=== PATIENT | male | born 1955 | race Caucasian/White ===

== ENCOUNTER → 2019-09-28 | Outpatient (CLI) | payer BC ==
--- NOTE | 2019-09-28 11:29 | EST ---
EXERCISE STRESS DATE OF SERVICE: 09/28/2019 AGE: 64 SEX: Male HT: 68" WT: 190 pounds PROTOCOL: Cardiolite Prasanth STAGE: III DURATION OF EXERCISE: 8 minutes HEART RATE REST: 83 BLOOD PRESSURE REST: 173/86 MAXIMUM HEART RATE ACHIEVED: 134 MAXIMUM BLOOD PRESSURE: 234/68 85% MPHR: 134 100% MPHR: 158 METS: 9 INDICATIONS: Coronary artery disease with difficulty in breathing. CLINICAL INFORMATION: Baseline EKG shows sinus rhythm, normal axis, normal intervals. Patient exercised on Prasanth protocol for a total of 8 minutes achieving 9 METs, 85% of predicted maximal heart rate without chest pain. At peak exercise, there were frequent PVCs and [address]-segment depression in the inferolateral leads. CONCLUSIONS: 1. Above-average exercise tolerance. 2. Abnormal stress test by EKG criteria. 3. Cardiolite portion of the stress test will be reported separately. MMODL / IJN: [id number] /
--- NOTE | 2019-09-28 14:19 | NM ---
EXAMINATION TYPE: NM stress cardiolite complete DATE OF EXAM: 09/28/2019 COMPARISON: NONE HISTORY: Atherosclerotic heart disease TECHNIQUE: After the intravenous administration of 9.8 mCi Tc 99m Sestamibi - Rest images obtained 4 5 minutes post injection. The patient exercised using a CORY protocol and 1 minute prior to peak e xercise was injected with 26 mCi Tc 99m Sestamibi - Stress images obtained 10 minutes post injection. FINDINGS: Targeted heart rate was achieved during performance of the study. Review of stress and rest SPECT theodore ges demonstrates decreased inferoapical radiopharmaceutical uptake on stress as compared to rest imag es. Gated analysis shows normal wall motion with an estimated left ventricular ejection fraction of 48 %. IMPRESSION: Stress-induced left ventricular myocardial ischemia. Report relayed to the referring clinic at the ti me of interpretation, report relayed to
== END | disposition home or self-care (01) ==
LOC: RADNMMAIN 08:11
PROVIDERS: ATTEND Family Medicine
DX: I25.9 Chronic ischemic heart disease, unspecified (principal); R94.31 Abnormal electrocardiogram [ECG] [EKG]
CPT/HCPCS: 93017; 78452; A9500

== ENCOUNTER → 2022-06-08 | Outpatient (CLI) | payer MEDICARE, OTHER ==
--- NOTE | 2022-06-08 23:17 | US ---
EXAMINATION TYPE: US duplex aorta DATE OF EXAM: 06/08/2022 COMPARISON: NONE CLINICAL HISTORY: Z13.89 ENCOUNTER FOR SCREENING FOR OTHER DISORDER. AAA screening TECHNIQUE: Multiple sonographic images of the abdominal aorta are obtained. 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
== END | disposition home or self-care (01) ==
LOC: RADUSWWP 15:37
PROVIDERS: ATTEND Family Medicine
DX: Z13.89 Encounter for screening for other disorder (principal)
CPT/HCPCS: 93979

== ENCOUNTER 2022-06-14 14:54 | Inpatient (IN) | payer MEDICARE, OTHER ==
[2022-06-14] MEDS ORDERED: NITROGLYCERIN OINT 1 INCH/GM PACKET TOPICAL STA (15:27)
[2022-06-14] MEDS ORDERED: ASPIRIN 81 MG PO STA (15:27)
[2022-06-14 15:39] LABS: Basophils # (A) 0.1 k/uL (0-0.2); Basophils % (A) 1 %; Eosinophils # (A) 0.2 k/uL (0-0.7); Eosinophils % (A) 2 %; HGB 14.2 gm/dL (13.0-17.5); Lymphocytes # (A) 2.3 k/uL (1.0-4.8); Lymphocytes % (A) 20 %; MCH 31.3 pg (25.0-35.0); MCHC 33.1 g/dL (31.0-37.0); MCV 94.5 fL (80.0-100.0); Mean Platelet Volume 8.3; Monocytes # (A) 0.6 k/uL (0-1.0); Monocytes % (A) 5 %; Neutrophils # (A) 7.9 k/uL (1.3-7.7); Neutrophils % (A) 70 %; Platelet Count 240 k/uL (150-450); RBC 4.55 m/uL (4.30-5.90); WBC 11.2 k/uL (3.8-10.6)
--- NOTE | 2022-06-14 15:47 | ED ---
General Adult HPI - General Chief complaint: Recheck/Abnormal Lab/Rx Stated complaint: sent by Dr whitley Stress test Time Seen by Provider: 06/14/22 15:14 Source: patient Mode of arrival: ambulatory Limitations: no limitations - History of Present Illness Initial comments: This 67-year-old male presents with a complaint of some intermittent chest pain for the past 3 weeks. He describes this as a heartburn. It seems to be worse with exertion and better with rest. He does relate having 2 previous cardiac stents with last one being approximately 3 years ago. [facility] He saw his primary care recently and had a negative aortic scan. He then was scheduled for a stress test. He had a stress test done today and this was markedly abnormal. He was told to come to the emergency department by his primary care. The patient denies any radiation of the heartburn type sensation. He denies any shortness of breath or palpitations. He feels completely normal now does not have any heartburn and is asymptomatic. There is no leg pain or swelling. No other complaints or modifying factors. - Related Data Allergies Allergy/AdvReac Type Severity Reaction Status Date / Time No Known Allergies Allergy Verified 06/14/22 15:00 Review of Systems ROS Statement: Those systems with pertinent positive or pertinent negative responses have been documented in the HPI. ROS Other: All systems not noted in ROS Statement are negative. Past Medical History Past Medical History: Diabetes Mellitus, Hyperlipidemia, Hypertension Past Surgical History: Heart Catheterization With Stent, Orthopedic Surgery Past Psychological History: No Psychological Hx Reported Smoking Status: Current every day smoker Past Alcohol Use History: Occasional Past Drug Use History: None Reported General Exam - General Exam Comments Initial Comments: GENERAL: The patient is well nourished and well hydrated. VITAL SIGNS: Heart rate, blood pressure, respiratory rate reviewed as recorded in nurse's notes. EYES: Pupils are round and reactive. Extraocular movements are intact. No conjunctival / lid redness or swelling. ENT: No external evidence of injury, swelling, or ecchymosis. Airway is patent. Throat is clear. NECK: Nontender. No swelling or evidence of injury. No subcutaneous emphysema. Trachea is midline. No thyroid mass. HEART: Regular rate and rhythm. Good peripheral pulses. LUNGS/CHEST: Breath sounds clear and equal bilaterally. No rales, rhonchi, or wheezes. No ecchymosis, subcutaneous emphysema, or tenderness. ABDOMEN: Abdomen soft without tenderness. No palpable masses or organomegaly. No peritoneal signs. No abdominal wall swelling or ecchymosis. EXTREMITIES: No extremity tenderness. Normal muscle tone and function. No thoracolumbar tenderness. NEUROLOGIC: Sensation is grossly intact. Cranial nerve exam reveals face is symmetrical, tongue is midline, speech is clear. SKIN: No abrasions or ecchymosis is noted. No induration or masses noted. PSYCHIATRIC: Alert and oriented. Appropriate behavior and judgment. Limitations: no limitations Course Vital Signs 06/14/22 06/14/22 06/14/22 14:57 15: 16:10 Temperature 98.4 F Pulse Rate 98 96 90 Respiratory 18 16 16 Rate Blood Pressure 150/77 184/96 148/90 O2 Sat by Pulse 96 99 98 Oximetry Medical Decision Making - Medical Decision Making The patient was seen and examined. All diagnostics are reviewed. The EKG shows a sinus tachycardia at a rate of 103. There is evidence of a left bundle branch block. The WA intervals 187, QRS duration is 138, and the QTC intervals 441. He is placed on a alarm security or surveillance monitor and no ectopy is identified. An aspirin as well as Nitropaste is ordered. The laboratory came back showing a slight elevation of the troponin at 0.60. The remainder labs are essentially within normal limits. The chest x-ray does not show any acute processes. Case is discussed with Dr. Nevarez from cardiology and he recommends adding heparin. This is initiated. Patient is stable on recheck. Case will be discussed with internal medicine and patient will be admitted is full admit with cardiology to consult. - Lab Data Result diagrams: 06/14/22 15:35 06/14/22 15:29 Lab Results 06/14/22 06/14/22 06/14/22 Range/Units 15:29 15:29 15:35 WBC 11.2 H (3.8-10.6) k/uL RBC 4.55 (4.30-5.90) m/uL Hgb 14.2 (13.0-17.5) gm/dL Hct 43.0 (39.0-53.0) % MCV 94.5 (80.0-100.0) fL MCH 31.3 (25.0-35.0) pg MCHC 33.1 (31.0-37.0) g/dL RDW 13.0 (11.5-15.5) % Plt Count 240 (150-450) k/uL MPV 8.3 Neutrophils % 70 % Lymphocytes % 20 % Monocytes % 5 % Eosinophils % 2 % Basophils % 1 % Neutrophils # 7.9 H (1.3-7.7) k/uL Lymphocytes # 2.3 (1.0-4.8) k/uL Monocytes # 0.6 (0-1.0) k/uL Eosinophils # 0.2 (0-0.7) k/uL Basophils # 0.1 (0-0.2) k/uL PT (9.0-12.0) sec INR (<1.2) APTT (22.0-30.0) sec Sodium 138 (137-145) mmol/L Potassium 4.8 (3.5-5.1) mmol/L Chloride 101 (98-107) mmol/L Carbon Dioxide 24 (22-30) mmol/L Anion Gap 13 mmol/L BUN 18 (9-20) mg/dL Creatinine 0.86 (0.66-1.25) mg/dL Est GFR (CKD-EPI)AfAm >90 (>60 ml/min/1.73 sqM) Est GFR (CKD-EPI)NonAf >90 (>60 ml/min/1.73 sqM) Glucose 210 H (74-99) mg/dL Calcium 9.6 (8.4-10.2) mg/dL Magnesium 1.1 L (1.6-2.3) mg/dL Total Bilirubin 0.6 (0.2-1.3) mg/dL AST 30 (17-59) U/L ALT 28 (4-49) U/L Alkaline Phosphatase 79 (38-126) U/L Troponin I 0.060 H* (0.000-0.034) ng/mL Total Protein 7.1 (6.3-8.2) g/dL Albumin 4.8 (3.5-5.0) g/dL 06/14/22 Range/Units 15:35 WBC (3.8-10.6) k/uL RBC (4.30-5.90) m/uL Hgb (13.0-17.5) gm/dL Hct (39.0-53.0) % MCV (80.0-100.0) fL MCH (25.0-35.0) pg MCHC (31.0-37.0) g/dL RDW (11.5-15.5) % Plt Count (150-450) k/uL MPV Neutrophils % % Lymphocytes % % Monocytes % % Eosinophils % % Basophils % % Neutrophils # (1.3-7.7) k/uL Lymphocytes # (1.0-4.8) k/uL Monocytes # (0-1.0) k/uL Eosinophils # (0-0.7) k/uL Basophils # (0-0.2) k/uL PT 10.6 (9.0-12.0) sec INR 1.0 (<1.2) APTT 22.8 (22.0-30.0) sec Sodium (137-145) mmol/L Potassium (3.5-5.1) mmol/L Chloride (98-107) mmol/L Carbon Dioxide (22-30) mmol/L Anion Gap mmol/L BUN (9-20) mg/dL Creatinine (0.66-1.25) mg/dL Est GFR (CKD-EPI)AfAm (>60 ml/min/1.73 sqM) Est GFR (CKD-EPI)NonAf (>60 ml/min/1.73 sqM) Glucose (74-99) mg/dL Calcium (8.4-10.2) mg/dL Magnesium (1.6-2.3) mg/dL Total Bilirubin (0.2-1.3) mg/dL AST (17-59) U/L ALT (4-49) U/L Alkaline Phosphatase (38-126) U/L Troponin I (0.000-0.034) ng/mL Total Protein (6.3-8.2) g/dL Albumin (3.5-5.0) g/dL Disposition Clinical Impression: Chest pain, Unstable angina, Hypertension, Abnormal stress test, Non-ST elevation myocardial infarction (NSTEMI) Disposition: ADMITTED IP TO THIS [facility] Condition: Fair Is patient prescribed a controlled substance at d/c from ED?: No Time of Disposition: 16:16 Decision Date: 06/14/22 Decision Time: 16:16
[2022-06-14 15:48] LABS: ALT 28 U/L (4-49); AST 30 U/L (17-59); African American GFR (CKD) >90 (>60 ml/min/1.73 sqM); Albumin 4.8 g/dL (3.5-5.0); Alkaline Phosphatase 79 U/L (38-126); Anion Gap 13 mmol/L; Blood Urea Nitrogen 18 mg/dL (9-20); Calcium 9.6 mg/dL (8.4-10.2); Carbon Dioxide 24 mmol/L (22-30); Chloride 101 mmol/L (98-107); Glucose 210 mg/dL (74-99); Magnesium 1.1 mg/dL (1.6-2.3); Non-African American GFR(CKD) >90 (>60 ml/min/1.73 sqM); Potassium 4.8 mmol/L (3.5-5.1); Sodium 138 mmol/L (137-145); Total Bilirubin 0.6 mg/dL (0.2-1.3); Total Protein 7.1 g/dL (6.3-8.2)
--- NOTE | 2022-06-14 15:57 | XR ---
EXAMINATION TYPE: XR chest 2V DATE OF EXAM: 06/14/2022 COMPARISON: NONE TECHNIQUE: PA and lateral views submitted. HISTORY: Chest tightness FINDINGS: The lungs are clear and there is no pneumothorax, pleural effusion, or focal pneumonia. Heart size normal. No overt failure. Arthropathy of the shoulders. Hyperinflation suggests COPD. Hypertrophic an d degenerative changes of the spine. IMPRESSION: 1. No acute process.
[2022-06-14 15:58] LABS: Partial Thromboplastin Time 22.8 sec (22.0-30.0); Prothrombin Time 10.6 sec (9.0-12.0)
[2022-06-14] MEDS ORDERED: HEPARIN SODIUM 1,000 UN/ML (10ML VL) IV ONE (16:14)
[2022-06-14] MEDS ORDERED: HEPARIN SODIUM 1,000 UN/ML (10ML VL) IV PRN (16:14)
[2022-06-14] MEDS ORDERED: HEPARIN SOD,PORK IN 0.45% NACL 25,000 UNIT in 0.45% NACL 1 250ML.BAG IV SCH (16:15)
[2022-06-14] MEDS ORDERED: DEXTROSE 50% SYRINGE 50 ML IVP PRN ×2 (16:48)
[2022-06-14] MEDS ORDERED: NITROGLYCERIN SL TABS 0.4 MG TAB SUBLINGUAL PRN (16:49)
[2022-06-14] MEDS ORDERED: MORPHINE SULFATE 4 MG/ML SYRINGE IV PRN (16:52)
[2022-06-14] MEDS ORDERED: IPRATROPIUM-ALBUTEROL 3 ML NEB INHALATION PRN (17:12)
--- NOTE | 2022-06-14 17:12 | P.HPIM ---
History of Present Illness H&P Date: 06/14/22 Chief Complaint: sent in by PCP for abnormal stress test Patient is a 67-year-old male with a past medical history of coronary artery disease status post stents (last stent was about 3 years ago), hypertension, diabetes, and tobacco abuse, hyperlipidemia who was sent to the ED by his PCP for an abnormal stress test. Patient states that for the past 3 weeks he has been having heartburn symptoms that are worse with exertion and improved with rest. He discussed this with his PCP who then ordered an abdominal ultrasound that was negative for any aortic aneurysm and also a stress test that showed a large area of stress-induced reversible ischemia involving the apical inferior, apical septal and apical lateral portions of the myocardium. In ED Patient's EKG showed left bundle branch block. Troponin was 0.60. Case was discussed with the on-call technical services manager who recommended starting heparin drip. Patient currently denying any heartburn symptoms or chest pain. Patient states that the last 2 times he had stents placed was because he had an abnormal stress test. Patient was given aspirin 325 mg and also nitro paste. Review of Systems 10 ROS reviewed and are negative except as noted in HPI Past Medical History Past Medical History: Diabetes Mellitus, Hyperlipidemia, Hypertension Past Surgical History: Heart Catheterization With Stent, Orthopedic Surgery Past Psychological History: No Psychological Hx Reported Smoking Status: Current every day smoker Past Alcohol Use History: Occasional Past Drug Use History: None Reported Medications and Allergies Allergies Allergy/AdvReac Type Severity Reaction Status Date / Time No Known Allergies Allergy Verified 06/14/22 15:00 Physical Exam Osteopathic Statement: *. No significant issues noted on an osteopathic structural exam other than those noted in the History and Physical/Consult. Vitals: Vital Signs Temp Pulse Resp BP Pulse Ox 06/14/22 16:10 90 16 148/90 98 06/14/22 15:22 96 16 184/96 99 06/14/22 14:57 98.4 F 98 18 150/77 96 Intake and Output 06/14/22 06/14/22 06/14/22 06:59 14:59 22:59 Other: Weight 86.183 kg General: [Alert and oriented, well nourished, no acute distress]. Eye: [PERRL, EOMI, normal conjunctiva]. HENT: [Normocephalic, clear tympanic membranes, normal hearing, moist oral mucosa, no scleral icterus, no sinus tenderness]. Neck: [Supple, non-tender, no carotid bruits, no JVD, no lymphadenopathy]. Lungs: [Mild wheezing in bilateral lungs, non-labored respiration]. Heart: [Normal rate, regular rhythm, no murmur, gallop or edema]. Abdomen: [Soft, non-tender, non-distended, normal bowel sounds, no masses]. Musculoskeletal: [Normal range of motion and strength, no tenderness or swelling]. Skin: [Skin is warm, dry and pink, no rashes or lesions]. Neurologic: [Awake, alert, and oriented X3, CN II-XII intact]. Psychiatric: [Cooperative, appropriate mood and affect]. Results CBC & Chem 7: 06/14/22 15:35 06/14/22 15:29 Labs: Abnormal Lab Results - Last 24 Hours (Table) 06/14/22 06/14/22 06/14/22 Range/Units 15:29 15:29 15:35 WBC 11.2 H (3.8-10.6) k/uL Neutrophils # 7.9 H (1.3-7.7) k/uL Glucose 210 H (74-99) mg/dL Magnesium 1.1 L (1.6-2.3) mg/dL Troponin I 0.060 H* (0.000-0.034) ng/mL Assessment and Plan Assessment: Non-ST elevation TX -Resume heparin drip -Nitropaste -Trend troponin 3. First set troponin 0.60 -Daily EKGs -Cardiology consult -Echocardiogram -Resume aspirin and statin -Nothing by mouth past midnight -Check hemoglobin A1c and lipid panel Hypomagnesemia -Replete as needed Suspect underlying COPD -DuoNeb as needed Chronic issues Hypertension Diabetes Hyperlipidemia Tobacco abuse -Resume home meds when available -Hold oral hypoglycemic agents and start Sliding-scale insulin and long-acting insulin -Nicotine patch, patient counseled on smoking cessation Medication reconciliation needs to be completed. will bring his medications from home. CODE STATUS:full code DVT prophylaxis: Heparin drip Discussed with: Patient, ER, rn Anticipated length of stay > than [address]: home A total of 50 minutes was spent on the care of this complex patient more than 50% of the time was spent in counseling and care coordination.
[2022-06-14 17:58] LABS: Glucose,Whole Blood 112 mg/dL (70-110)
[2022-06-14] MEDS: MAGNESIUM SULFATE-D5W PMX 1 GM in DEXTROSE/WATER 1 100ML.BAG IVPB SCH ×4 (18:00→21:22)
[2022-06-14] MEDS: INSULIN ASPART (NovoLOG) 100 UNIT/ML VIAL SQ SCH ×2 (18:29→20:29)
[2022-06-14 20:08] LABS: Glucose,Whole Blood 214 mg/dL (70-110)
[2022-06-14] MEDS: INSULIN DETEMIR (LEVEMIR) 100 UNIT/ML SYR SQ SCH (20:29)
[2022-06-14] MEDS ORDERED: ATORVASTATIN 40 MG TAB PO SCH (21:00)
[2022-06-15] MEDS: NICOTINE 21MG/24HR PATCH TRANSDERM SCH ×3 (03:21→15:29)
[2022-06-15 06:08] LABS: Glucose,Whole Blood 121 mg/dL (70-110)
[2022-06-15] MEDS: INSULIN ASPART (NovoLOG) 100 UNIT/ML VIAL SQ SCH ×4 (06:19→20:50)
[2022-06-15] MEDS ORDERED: ALPRAZolam 0.25 MG TAB PO PRN (06:57)
[2022-06-15] MEDS ORDERED: ASPIRIN 325 MG TAB PO STA (06:57)
[2022-06-15] MEDS ORDERED: NITROGLYCERIN SL TABS 0.4 MG TAB SUBLINGUAL PRN (06:57)
[2022-06-15] MEDS ORDERED: ALPRAZolam 0.5 MG TAB PO PRN (06:57)
[2022-06-15] MEDS ORDERED: ATORVASTATIN 40 MG TAB PO STA (06:57)
--- NOTE | 2022-06-15 07:08 | P.CRDCN ---
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. For the last few weeks he has been complaining of exertional heartburn relieved with rest and associated with nausea. He was scheduled as an outpatient for a stress test that was done yesterday, he walked on the treadmill for 8 minutes had a [address] segment depression with frequent PVCs and his nuclear scan showed a large area of stress-induced ischemia involving the apical inferior apical septal and apical lateral wall. His ejection fraction was reported to be 45%. The patient denies any prior history of myocardial infarction. He has no history of dizziness, palpitations or syncope. He has no PND, orthopnea or peripheral edema. He has no prior history of malignant arrhythmia or heart failure. He was called back by his primary care physician to the emergency room and in the emergency room his EKG showed left bundle branch block and his troponin was 0.060. He is pain-free at this time. He did not have left bundle branch block on his baseline EKG during the stress test. He was started on IV heparin in the emergency room. Medications: Aspirin, Lipitor 80 mg daily, Zestril 20 mg twice a day, metoprolol succinate 100 mg daily, Actos 30 mg daily, metformin 1 g twice a day, Zetia 10 mg daily Review of Systems: Respiratory: He has occasional cough related to his chronic tobacco use but has not been diagnosed with COPD GI: No vomiting . He has nausea recently but the chest discomfort. No history of peptic ulcer disease. No recent GI bleed. : No hematuria or dysuria. Nervous System: No stroke or seizure. Physical Examination: 67-year-old male, alert and oriented no apparent distress,Blood pressure 124/60, Heart rate 69 Head: Normocephalic. Eyes: Sclerae nonicteric. Neck: Good carotid upstroke, no bruit, no jugular venous distention. Lungs: Decrease air exchange bilaterally with mild wheezes Heart: Regular rate and rhythm, S1-S2, no S3, no rub. No murmur. Abdomen: Soft nontender, positive bowel sounds no organomegaly. Extremities: No edema, intact distal pulses. Labs: Hemoglobin 14.2, platelet to 2 40,000, BUN 18, creatinine 0.86, potassium 4.8. Troponin 0.060, 0.073, 0.067. Chest x-ray shows no acute infiltrate EKG: Sinus mechanism with left bundle branch block Impression: 1. Symptoms of unstable angina, new onset with abnormal MPI and mild troponin elevation consistent with non-STEMI in a patient with a known history of CAD status post stenting with multiple risk factors 2. History of hypertension 3. History of hyperlipidemia 4. History of diabetes 5. Chronic tobacco use Plan: 1. Continue home medications 2. Obtain an echocardiogram with Doppler 3. Obtain old records regarding prior stenting 4. Proceed with cardiac catheterization to further assess his status and guide his treatment. 5. The procedure as well as the risks and the complications were discussed with the patient. Thank you for this consult we will follow with you. Past Medical History Past Medical History: Diabetes Mellitus, Hyperlipidemia, Hypertension History of Any Multi-Drug Resistant Organisms: None Reported Past Surgical History: Heart Catheterization With Stent, Orthopedic Surgery Date of Last Stent Placement:: 2018 Past Psychological History: No Psychological Hx Reported Smoking Status: Current every day smoker Past Alcohol Use History: Occasional Past Drug Use History: None Reported Medications and Allergies Home Medications Medication Instructions Recorded Confirmed Type Aspirin EC [Ecotrin Low Dose] 81 mg PO DAILY 06/14/22 06/14/22 History Atorvastatin Calcium [Lipitor] 80 mg PO HS 06/14/22 06/14/22 History Ezetimibe [Zetia] 10 mg PO DAILY 06/14/22 06/14/22 History Metoprolol Succinate (ER) [Toprol 100 mg PO DAILY 06/14/22 06/14/22 History Xl] Nitroglycerin Sl Tabs [Nitrostat] 0.4 mg SUBLINGUAL Q5M PRN 06/14/22 06/14/22 History Pioglitazone HCl 30 mg PO DAILY 06/14/22 06/14/22 History lisinopriL [Zestril] 20 mg PO BID 06/14/22 06/14/22 History metFORMIN HCL 1,000 mg PO BID 06/14/22 06/14/22 History Allergies Allergy/AdvReac Type Severity Reaction Status Date / Time No Known Allergies Allergy Verified 06/14/22 17:56 Physical Exam Vitals: Vital Signs Temp Pulse Pulse Resp BP BP Pulse Ox 06/15/22 03:24 98 F 69 15 124/67 97 06/14/22 23:23 97.8 F 73 15 127/66 96 06/14/22 19:39 98.5 F 93 18 139/69 95 06/14/22 18:15 97.8 F 70 18 144/67 97 06/14/22 17:33 83 16 156/88 96 06/14/22 16:10 90 16 148/90 98 06/14/22 15:22 96 16 184/96 99 06/14/22 14:57 98.4 F 98 18 150/77 96 Intake and Output 06/14/22 06/14/22 06/15/22 14:59 22:59 06:59 Intake Total 540 71.333 Balance 540 71.333 Intake: Intake, IV Titration 71.333 Amount Heparin Sod,Pork in 0.45% 71.333 NaCl 25,000 unit In 0.45 % NaCl 1 250ml.bag @ 11. 603 UNITS/KG/HR 10 mls/hr IV .Q24H [facility] Rx#: [id number] Oral 540 Other: # Voids 1 Weight 86.183 kg 86.183 kg Results 06/14/22 15:35 06/14/22 15:29 Cardiac Enzymes 06/14/22 06/14/22 06/14/22 Range/Units 15:29 15:29 17:10 AST 30 (17-59) U/L Troponin I 0.060 H* 0.073 H* (0.000-0.034) ng/mL 06/14/22 Range/Units 19:25 AST (17-59) U/L Troponin I 0.067 H* (0.000-0.034) ng/mL Coagulation 06/14/22 06/14/22 Range/Units 15:35 22:59 PT 10.6 (9.0-12.0) sec APTT 22.8 40.5 H (22.0-30.0) sec CBC 06/14/22 Range/Units 15:35 WBC 11.2 H (3.8-10.6) k/uL RBC 4.55 (4.30-5.90) m/uL Hgb 14.2 (13.0-17.5) gm/dL Hct 43.0 (39.0-53.0) % Plt Count 240 (150-450) k/uL Comprehensive Metabolic Panel 06/14/22 Range/Units 15:29 Sodium 138 (137-145) mmol/L Potassium 4.8 (3.5-5.1) mmol/L Chloride 101 (98-107) mmol/L Carbon Dioxide 24 (22-30) mmol/L BUN 18 (9-20) mg/dL Creatinine 0.86 (0.66-1.25) mg/dL Glucose 210 H (74-99) mg/dL Calcium 9.6 (8.4-10.2) mg/dL AST 30 (17-59) U/L ALT 28 (4-49) U/L Alkaline Phosphatase 79 (38-126) U/L Total Protein 7.1 (6.3-8.2) g/dL Albumin 4.8 (3.5-5.0) g/dL Current Medications Generic Name Dose Route Start Last Admin Trade Name Freq PRN Reason Stop Dose Admin Albuterol/Ipratropium 3 ml 06/14/22 17:12 Ipratropium-Albuterol 3 Ml Neb INHALATION Q6H PRN Wheezing Alprazolam 0.25 mg 06/15/22 06:57 Alprazolam 0.25 Mg Tab PO Q6HR PRN Mild Anxiety Alprazolam 0.5 mg 06/15/22 06:57 Alprazolam 0.5 Mg Tab PO Q6HR PRN Moderate Anxiety Aspirin 81 mg 06/15/22 09:00 Aspirin 325 Mg Tab PO DAILY BETHANIE Aspirin 325 mg 06/15/22 06:57 Aspirin 325 Mg Tab PO 06/15/22 06:58 ONCE STA Atorvastatin Calcium 40 mg 06/14/22 21:00 06/14/22 20:29 Atorvastatin 40 Mg Tab PO 40 mg HS BETHANIE Administration Atorvastatin Calcium 80 mg 06/15/22 21:00 Atorvastatin 80 Mg Tab PO HS BETHANIE Atorvastatin Calcium 80 mg 06/15/22 06:57 Atorvastatin 80 Mg Tab PO 06/15/22 06:58 ONCE STA Dextrose/Water 25 ml 06/14/22 16:48 Dextrose 50% Syringe 50 Ml IVP PER PROTOCOL PRN Hypoglycemia Protocol Dextrose/Water 50 ml 06/14/22 16:48 Dextrose 50% Syringe 50 Ml IVP PER PROTOCOL PRN Hypoglycemia Protocol Ezetimibe 10 mg 06/15/22 09:00 Ezetimibe 10 Mg Tab PO DAILY [facility] Heparin Sodium (Porcine) 0 unit 06/14/22 16:14 Heparin Sodium 1,000 Un/Ml (10ml Vl) IV PER PROTOCOL PRN Low PTT Protocol Heparin Sodium/Sodium Chloride 250 mls @ 10 mls/hr 06/14/22 16:15 06/14/22 23:34 25,000 unit/ Sodium Chloride IV 13.603 units/kg/hr .Q24H B[facility]AN[facility] 11.723 mls/hr Titration Protocol 11.603 UNITS/KG/HR Heparin Sodium (Porcine) 10, 1,001 mls @ 999 mls/hr 06/16/22 07:00 000 unit/ Sodium Chloride IRRIGATION 06/16/22 23:00 ONCE PRN INTRA-OP Heparin Sodium (Porcine) 2,500 250.5 mls @ 250 mls/hr 06/16/22 07:00 unit/ Sodium Chloride IRRIGATION 06/16/22 23:00 ONCE PRN INTRA-OP Insulin Aspart 0 unit 06/14/22 17:30 06/15/22 06:19 Insulin Aspart (Novolog) 100 Unit/Ml Vial SQ Not Given ACHS [facility] Protocol Insulin Detemir 10 unit 06/14/22 21:00 06/14/22 20:29 Insulin Detemir (Levemir) 100 Unit/Ml Syr SQ 10 unit HS [facility] Administration Lisinopril 20 mg 06/15/22 09:00 Lisinopril 20 Mg Tab PO BID [facility] Metoprolol Succinate 100 mg 06/15/22 09:00 Metoprolol Succinate (Er) 100 Mg Tab.Er.24h PO DAILY [facility] Morphine Sulfate 4 mg 06/14/22 16:52 Morphine Sulfate 4 Mg/Ml Syringe IV Q4HR PRN Severe Pain Nicotine 1 patch 06/14/22 17:00 06/15/22 03:21 Nicotine 21mg/24hr Patch TRANSDERM Not Given DAILY [facility] Nitroglycerin 0.4 mg 06/14/22 16:49 Nitroglycerin Sl Tabs 0.4 Mg Tab SUBLINGUAL Q5M PRN Chest Pain Nitroglycerin 0.4 mg 06/15/22 06:57 Nitroglycerin Sl Tabs 0.4 Mg Tab SUBLINGUAL Q5M PRN Chest Pain Pioglitazone HCl 30 mg 06/15/22 09:00 Pioglitazone 30 Mg Tab PO DAILY BETHANIE Intake and Output 06/14/22 06/14/22 06/15/22 14:59 22:59 06:59 Intake Total 540 71.333 Balance 540 71.333 Intake: Intake, IV Titration 71.333 Amount Heparin Sod,Pork in 0.45% 71.333 NaCl 25,000 unit In 0.45 % NaCl 1 250ml.bag @ 11. 603 UNITS/KG/HR 10 mls/hr IV .Q24H [facility] Rx#: [id number] Oral 540 Other: # Voids 1 Weight 86.183 kg 86.183 kg Patient Weight 06/15/22 06:59 Weight 86.183 kg 06/14/22 15:35 06/14/22 15:29
[2022-06-15 08:08] LABS: Basophils # (A) 0.1 k/uL (0-0.2); Basophils % (A) 1 %; Eosinophils # (A) 0.3 k/uL (0-0.7); Eosinophils % (A) 3 %; HCT 42.1 % (39.0-53.0); HGB 13.6 gm/dL (13.0-17.5); Lymphocytes # (A) 2.1 k/uL (1.0-4.8); Lymphocytes % (A) 21 %; MCH 30.8 pg (25.0-35.0); MCHC 32.4 g/dL (31.0-37.0); MCV 95.2 fL (80.0-100.0); Mean Platelet Volume 7.9; Monocytes # (A) 0.6 k/uL (0-1.0); Monocytes % (A) 6 %; Neutrophils # (A) 6.7 k/uL (1.3-7.7); Neutrophils % (A) 68 %; Platelet Count 238 k/uL (150-450); RBC 4.42 m/uL (4.30-5.90)
[2022-06-15 08:25] LABS: African American GFR (CKD) >90 (>60 ml/min/1.73 sqM); Anion Gap 9 mmol/L; Blood Urea Nitrogen 13 mg/dL (9-20); Calcium 8.7 mg/dL (8.4-10.2); Carbon Dioxide 25 mmol/L (22-30); Chloride 104 mmol/L (98-107); Glucose 144 mg/dL (74-99); Magnesium 1.7 mg/dL (1.6-2.3); Non-African American GFR(CKD) >90 (>60 ml/min/1.73 sqM); Potassium 4.3 mmol/L (3.5-5.1); Prothrombin Time 10.7 sec (9.0-12.0); Sodium 138 mmol/L (137-145)
[2022-06-15] MEDS: lisinopriL 20 MG TAB PO SCH ×2 (08:46→20:50)
[2022-06-15] MEDS: EZETIMIBE 10 MG TAB PO SCH (08:47)
[2022-06-15] MEDS: METOPROLOL SUCCINATE (ER) 100 MG TAB.ER.24H PO SCH (08:47)
[2022-06-15] MEDS ORDERED: ASPIRIN 325 MG TAB PO SCH (09:00)
[2022-06-15] MEDS ORDERED: VERAPAMIL 2.5 MG/ML 2 ML AMP ONE (09:02)
--- NOTE | 2022-06-15 09:20 | CA ---
Transthoracic Echo Report Name: Praveen Mejia Age: 67 Gender: M : 1955 Exam Date: 06/15/2022 07:31 Exam Location: [facility] Ht (in): 68 Wt (lb): 190 Ordering Physician: Emely Kc MD ([id number]) Attending/Referring Phys: Commissioning Manager Sarah Madden RDCS Procedure CPT: Indications: CAD Cardiac Hx: Technical Quality: Fair Contrast 1: Total Dose (mL): Contrast 2: Total Dose (mL): MEASUREMENTS (Male / Female) Normal Values 2D ECHO LV Diastolic Diameter PLAX 4.9 cm 4.2 - 5.9 / 3.9 - 5.3 cm LV Systolic Diameter PLAX 3.0 cm IVS Diastolic Thickness 1.2 cm 0.6 - 1.0 / 0.6 - 0.9 cm LVPW Diastolic Thickness 1.1 cm 0.6 - 1.0 / 0.6 - 0.9 cm LV Relative Wall Thickness 0.5 RV Internal Dim ED PLAX 3.0 cm LA Systolic Diameter LX 3.6 cm 3.0 - 4.0 / 2.7 - 3.8 cm LV Diastolic Volume MOD 4C 118.4 cm??? LV Systolic Volume MOD 4C 70.1 cm??? LV Ejection Fraction MOD 4C 40.8 % LV Diastolic Length 4C 8.6 cm LV Systolic Length 4C 7.3 cm LV Diastolic Volume MOD 2C 98.0 cm??? LV Systolic Volume MOD 2C 43.5 cm??? LV Ejection Fraction MOD 2C 55.6 % LV Diastolic Length 2C 8.4 cm LV Systolic Length 2C 7.3 cm LA Volume 48.6 cm??? 18 - 58 / 22 - 52 cm??? M-MODE Aortic Root Diameter MM 3.0 cm MV E Point Septal Separation 1.3 cm AV Cusp Separation MM 2.0 cm DOPPLER AV Peak Velocity 135.3 cm/s AV Peak Gradient 7.3 mmHg MV Area PHT 3.8 cm??? Mitral E Point Velocity 78.6 cm/s Mitral A Point Velocity 104.4 cm/s Mitral E to A Ratio 0.8 MV Deceleration Time 201.9 ms MV E' Velocity 6.4 cm/s Mitral E to MV E' Ratio 12.3 TR Peak Velocity 219.8 cm/s TR Peak Gradient 19.3 mmHg Right Ventricular Systolic Press 24.3 mmHg FINDINGS Left Ventricle Left ventricular ejection fraction is estimated at 45-50 %. Left ventricular cavity size normal. Borderline left ventricular hypertrophy. Basel inferior and infero septal diallo hypokinesis Right Ventricle Normal right ventricular size and function. Right ventricular systolic pressure within normal limits. Right Atrium Normal right atrial size. Left Atrium Normal left atrial size. No evidence for an atrial septal defect. Mitral Valve Mitral valve thickened. Mitral annular calcification. Aortic Valve Trileaflet aortic valve. No aortic valve stenosis or regurgitation. Tricuspid Valve Trace to mild tricuspid regurgitation. Pulmonic Valve Pulmonic valve not well visualized. Pericardium Normal pericardium. No pericardial effusion. Aorta Normal size aortic root and proximal ascending aorta. CONCLUSIONS Mild LV systolic dysfunction secondary to prior inferior wall myocardial infarction Previewed by: Dr. Cristiano Patten MD (Electronically Signed) Final Date: 15 June 2022 09:19
[2022-06-15] MEDS ORDERED: HEPARIN SODIUM 1,000 UN/ML (10ML VL) ONE (09:27)
[2022-06-15] MEDS ORDERED: fentaNYL (PF) 50 MCG/ML 2 ML AMP ONE (09:27)
[2022-06-15] MEDS ORDERED: IV FLUID CONTINUATION 400 ML IV ONE (09:39)
[2022-06-15] MEDS ORDERED: fentaNYL (PF) 50 MCG/ML 2 ML AMP IV ONE (10:04)
[2022-06-15] MEDS ORDERED: LIDOCAINE 1% INJ 10MG/ML (5 ML VIAL-PF) SQ ONE (10:05)
[2022-06-15] MEDS ORDERED: MIDAZOLAM 2 MG/2 ML VIAL IV ONE (10:06)
[2022-06-15] MEDS ORDERED: VERAPAMIL SYRINGE (5 MG/10 ML) INTRAARTER ONE (10:09)
[2022-06-15] MEDS ORDERED: HEPARIN SODIUM 1,000 UN/ML (10ML VL) IV ONE (10:14)
[2022-06-15] MEDS ORDERED: IOPAMIDOL-370 125ML BTL INJ ONE (10:28)
[2022-06-15] MEDS ORDERED: RX INFO: IV CONTRAST WAS GIVEN 1 EACH MISC MISCELLANE PRN (10:47)
[2022-06-15] MEDS ORDERED: HEPARIN SODIUM 1,000 UN/ML (10ML VL) IV PRN (10:49)
[2022-06-15] MEDS: PIOGLITAZONE 30 MG TAB PO SCH (10:51)
--- NOTE | 2022-06-15 10:56 | P.CARDCATH ---
Date of Procedure: 06/15/22 Description of Procedure: Cardiac Catheterization: The patient is a 67-year-old male with known history of hypertension, hyperlipidemia and diabetes mellitus as well as chronic tobacco use is been having progressive symptoms of exertional chest discomfort, had an abnormal MPI and mild elevation of his troponin. Recommendations were made regarding cardiac catheterization, the risks and the complications were discussed with the patient who is in full understanding and agreement. Procedure Description: Patient was brought to laboratory equipment installer in fasting semi-sedated state after receiving Fentanyl and Benadryl achieiving moderate conscious sedated state. Using Xylocaine Anesthesia and Seldinger technique, a 6-Kazakh sheath was introduced in the right radial artery . Subsequently, selective coronary angiography was performed using a 5-Kazakh 3.5 bend Jessica catheter. Multiple views of the coronary artery including hemiaxial views were obtained. The 5-Kazakh Pigtail catheter was used to cross the aortic valve and LVEDP was calculated. Following that, catheter and sheath were removed. Hemostasis was obtained with deployment of TR band . There was no immediate complication. Patient was returned to room in stable condition. Of note, the patient received a total of 4500 units of intravenous heparin as well as intra-arterial verapamil. Findings: Fluoroscopy: Fluoroscopy revealed significant calcification involving the left main and the LAD Left main: This is a large size vessel, trifurcating into LAD, left circumflex and ramus intermedius, the distal left main has 70% stenosis, eccentric LAD: This is a large size vessel, giving rise to a large diagonal branch, calcified the proximal LAD has an eccentric 95% stenosis involving the takeoff of the diagonal branch the vessel has no high-grade stenosis. The ostium of the LAD has 70% stenosis Left circumflex: This is a nondominant vessel moderate caliber giving rise to 2 obtuse marginal branch, the ostium of the left circumflex has 60-70% stenosis. Ramus intermedius this is a large size vessel, reaching to the apical lateral wall, the takeoff of the patient's intermedius has 70% plaque. RCA: This is a dominant large sized vessel, the mid segment has an eccentric 70% stenosis in the stent in the mid RCA is patent, the vessel bifurcates distally to the PDA and PLV and has no evidence of high-grade stenosis Left Ventriculogram: Not performed Hemodynamics: There was no gradient across the aortic valve , LVEDP was 16-20 mmHg Conclusion: 1. Calcified left main and LAD 2. Critical stenosis in the distal left main 3. Severe stenosis in the ostium and proximal LAD 4. Significant disease in the left circumflex, ramus intermedius and the RCA Recommendations: In view of the findings I have recommended to proceed with evaluation for coronary artery bypass grafting, I have discussed with the patient and his family that in view of his anatomy, diabetes and calcification CABG is superior to multivessel stenting for long-term results. The findings and the recommendations were discussed with the patient and the family and they were in full understanding and agreement. Duration of sedation is 23 minutes.
[2022-06-15] MEDS ORDERED: SODIUM CHLORIDE 0.9% 1,000 ML IV SCH (11:00)
[2022-06-15] MEDS: NITROGLYCERIN OINT 1 INCH/GM PACKET TOPICAL SCH ×3 (11:09→23:13)
[2022-06-15 11:25] LABS: Chol/HDL Ratio 3.49 Ratio; LDL Cholesterol,Calculated 77.9 mg/dL (0.0-131.0)
[2022-06-15 11:33] LABS: Basophils # (A) 0.1 k/uL (0-0.2); Basophils % (A) 1 %; Eosinophils # (A) 0.2 k/uL (0-0.7); Eosinophils % (A) 2 %; HCT 40.5 % (39.0-53.0); HGB 13.6 gm/dL (13.0-17.5); Lymphocytes # (A) 1.7 k/uL (1.0-4.8); Lymphocytes % (A) 19 %; MCH 31.8 pg (25.0-35.0); MCHC 33.5 g/dL (31.0-37.0); Mean Platelet Volume 7.9; Monocytes # (A) 0.5 k/uL (0-1.0); Monocytes % (A) 5 %; Neutrophils # (A) 6.8 k/uL (1.3-7.7); Neutrophils % (A) 73 %; Platelet Count 209 k/uL (150-450); RBC 4.26 m/uL (4.30-5.90); WBC 9.3 k/uL (3.8-10.6)
[2022-06-15 11:59] LABS: Glucose,Whole Blood 137 mg/dL (70-110)
[2022-06-15 12:06] LABS: Prothrombin Time 11.3 sec (9.0-12.0)
[2022-06-15 12:14] LABS: Partial Thromboplastin Time 127.7 sec (22.0-30.0)
--- NOTE | 2022-06-15 12:26 | P.PN ---
Subjective Progress Note Date: 06/15/22 Patient is doing well following his catheterization. Catheterization demonstrated 70% stenosis of the distal left main, 70% stenosis of the ostial LAD, 70% stenosis of the ostial left circumflex, ramus intermedius with 70% plaque, RCA with 70% stenosis of the mid RCA. Patient was not intervened upon by PCI, surgical evaluation ordered by cardiology team Gen: awake, alert HEENT: normocephalic, atraumatic, good hearing acuity, moist mucous membranes Resp: good air exchange, breathing comfortably with no accessory muscle use CVS: good distal perfusion x 4, GI: soft, NTTP, ND : no SPT, no CVAT, caal catheter not present MSK: no pitting edema, no clubbing Neuro: non-focal, moving all extremities Psych: cooperative, euthymic mood Assessment/plan: Unstable angina Multivessel coronary artery disease -Resume heparin drip -Nitropaste -Trend troponin 3. First set troponin 0.60 -Daily EKGs -Cardiology consult -Echocardiogram -Resume aspirin and statin -Nothing by mouth past midnight -Check hemoglobin A1c and lipid panel -CT surgery consult Hypomagnesemia -Replete as needed Suspect underlying COPD -DuoNeb as needed Chronic issues Hypertension Diabetes Hyperlipidemia Tobacco abuse -Resume home meds when available -Hold oral hypoglycemic agents and start Sliding-scale insulin and long-acting insulin -Nicotine patch, patient counseled on smoking cessation Medication reconciliation needs to be completed. will bring his medications from home. CODE STATUS:full code DVT prophylaxis: Heparin drip Discussed with: Patient, ER, rn Anticipated length of stay > than [address]: home A total of 50 minutes was spent on the care of this complex patient more than 50% of the time was spent in counseling and care coordination. Objective - Vital Signs Vital signs: Vital Signs Temp 98.0 F 06/15/22 08:45 Pulse 73 06/15/22 12:02 Resp 16 06/15/22 12:02 BP 152/83 06/15/22 12:02 Pulse Ox 98 06/15/22 12:02 FiO2 Intake & Output 06/14/22 06/15/22 06/15/22 18:59 06:59 18:59 Intake Total 611.333 150 Balance 611.333 150 Weight 86.183 kg Intake: IV 150 Intake, IV Titration 71.333 Amount Heparin Sod,Pork in 0.45% 71.333 NaCl 25,000 unit In 0.45 % NaCl 1 250ml.bag @ 11. 603 UNITS/KG/HR 10 mls/hr IV .Q24H [facility] Rx#: [id number] Oral 540 Other: Voiding Method Toilet # Voids 1 - Labs CBC & Chem 7: 06/15/22 11:18 06/15/22 07:28 Labs: Abnormal Lab Results - Last 24 Hours (Table) 06/14/22 06/14/22 06/14/22 Range/Units 15:29 15:29 15:35 WBC 11.2 H (3.8-10.6) k/uL RBC (4.30-5.90) m/uL Neutrophils # 7.9 H (1.3-7.7) k/uL APTT (22.0-30.0) sec Glucose 210 H (74-99) mg/dL POC Glucose (mg/dL) (70-110) mg/dL Hemoglobin A1c (0.0-6.0) % Magnesium 1.1 L (1.6-2.3) mg/dL Troponin I 0.060 H* (0.000-0.034) ng/mL Triglycerides (0.00-149.00) mg/dL 06/14/22 06/14/22 06/14/22 Range/Units 17:10 17:10 17:56 WBC (3.8-10.6) k/uL RBC (4.30-5.90) m/uL Neutrophils # (1.3-7.7) k/uL APTT (22.0-30.0) sec Glucose (74-99) mg/dL POC Glucose (mg/dL) 112 H (70-110) mg/dL Hemoglobin A1c 7.2 H (0.0-6.0) % Magnesium (1.6-2.3) mg/dL Troponin I 0.073 H* (0.000-0.034) ng/mL Triglycerides (0.00-149.00) mg/dL 06/14/22 06/14/22 06/14/22 Range/Units 19:25 20:07 22:59 WBC (3.8-10.6) k/uL RBC (4.30-5.90) m/uL Neutrophils # (1.3-7.7) k/uL APTT 40.5 H (22.0-30.0) sec Glucose (74-99) mg/dL POC Glucose (mg/dL) 214 H (70-110) mg/dL Hemoglobin A1c (0.0-6.0) % Magnesium (1.6-2.3) mg/dL Troponin I 0.067 H* (0.000-0.034) ng/mL Triglycerides (0.00-149.00) mg/dL 06/15/22 06/15/22 06/15/22 Range/Units 06:08 07:28 07:28 WBC (3.8-10.6) k/uL RBC (4.30-5.90) m/uL Neutrophils # (1.3-7.7) k/uL APTT 55.0 H (22.0-30.0) sec Glucose 144 H (74-99) mg/dL POC Glucose (mg/dL) 121 H (70-110) mg/dL Hemoglobin A1c (0.0-6.0) % Magnesium (1.6-2.3) mg/dL Troponin I (0.000-0.034) ng/mL Triglycerides 160.00 H (0.00-149.00) mg/dL 06/15/22 06/15/22 06/15/22 Range/Units 11:18 11:18 11:58 WBC (3.8-10.6) k/uL RBC 4.26 L (4.30-5.90) m/uL Neutrophils # (1.3-7.7) k/uL APTT 127.7 H* (22.0-30.0) sec Glucose (74-99) mg/dL POC Glucose (mg/dL) 137 H (70-110) mg/dL Hemoglobin A1c (0.0-6.0) % Magnesium (1.6-2.3) mg/dL Troponin I (0.000-0.034) ng/mL Triglycerides (0.00-149.00) mg/dL
[2022-06-15 12:39] LABS: Appearance,Urine Clear (Clear); Bilirubin,Urine Negative (Negative); Blood,Urine Negative (Negative); Color,Urine Light Yellow; Glucose,Urine (UA) Negative (Negative); Ketones,Urine Negative (Negative); Leukocyte Esterase,Urine Negative (Negative); Nitrite,Urine Negative (Negative); PH, Urine 6.5 (5.0-8.0); Protein,Urine Negative (Negative); Specific Gravity,Urine 1.021 (1.001-1.035); Urobilinogen,Urine <2.0 mg/dL (<2.0)
--- NOTE | 2022-06-15 13:20 | US ---
EXAMINATION TYPE: US carotid duplex BILAT DATE OF EXAM: 06/15/2022 COMPARISON: NONE CLINICAL HISTORY: preop cardiac surgery. HTN controlled with meds. No TIA TECHNIQUE: Carotid duplex ultrasound examination. Indirect Doppler criteria was utilized. FINDINGS: EXAM MEASUREMENTS: RIGHT: Peak Systolic Velocity (PSV) cm/sec ----- Right CCA: 68.0 ----- Right ICA: 106.2 ----- Right ECA: 74.9 ICA/CCA ratio: 1.6 RIGHT: End Diastole cm/sec ----- Right CCA: 15.3 ----- Right ICA: 15.6 ----- Right ECA: 8.9 LEFT: Peak Systolic Velocity (PSV) cm/sec ----- Left CCA: 116.1 ----- Left ICA: 131.9 ----- Left ECA: 150.8 ICA/CCA ratio: 1.1 LEFT: End Diastole cm/sec ----- Left CCA: 24.1 ----- Left ICA: 25.4 ----- Left ECA: 13.7 VERTEBRALS (direction of flow): Right Vertebral: Antegrade Left Vertebral: Antegrade Rhythm: Normal ADMINISTRATIVE ASSISTANT COORDINATOR NOTES: Plaque bilateral bulbs. Wall thickening. Elevated left ECA velocity. IMPRESSION: Bilateral atherosclerotic plaque with no significant hemodynamic stenosis as visualized. Criteria for Assigning % of Stenosis / Diameter reduction (Estimation based on the indirect measurements of the internal carotid artery velocities (ICA PSV). 1. Normal (no stenosis)=ICA PSV < 125 cm/s: ratio < 2.0: ICA EDV<40 cm/s. 2. Less than 50% stenosis=ICA PSV < 125 cm/s: ratio < 2.0: ICA EDV<40 cm/s. 3. 50 to 69% stenosis=ICA PSV of 125 to 230 cm/s: ration 2.0 ? 4.0: ICA EDV 40-100 cm/s. 4. Greater than 70% stenosis to near occlusion= ICA PSV > 230 cm/s: ratio > 4.0: ICA EDV > 100 cm/s. 5. Near occlusion= ICA PSV velocities may be low or undetectable: variable ratio and ICA EDV. 6. Total occlusion=unable to detect flow.
[2022-06-15] MEDS: HEPARIN SOD,PORK IN 0.45% NACL 25,000 UNIT in 0.45% NACL 1 250ML.BAG IV SCH (13:52)
--- NOTE | 2022-06-15 15:14 | P.GSCN ---
History of Present Illness Consult date: 06/15/22 Reason for Consult: Coronary artery disease with left main disease, non-STEMI this admission Requesting physician: Emely Kc History of present illness: This is a 67-year-old gentleman who follows on an outpatient basis with Dr. Matias. He has a previous medical history of coronary artery disease with previous PCI, hypertension, hyperlipidemia, fql-ubhixat-mszjqwehf diabetes, current tobacco dependence, peripheral arterial disease with left lower extremity stenting, and family history of premature coronary artery disease with father having 3 vessel CABG at 47 years old. Apparently this gentleman has been experiencing what he describes as heartburn for approximately 3 weeks but did develop chest discomfort and nausea within the last week, always relieved with rest. He states he has never had these symptoms at rest, only with exertion. He denies shortness of breath, diaphoresis, dizziness, or any other symptomatology. He was sent for a stress test by his primary care physician which was abnormal and he was directed to go to the emergency room. He had troponin elevation and EKG changes consistent with non-STEMI. He underwent heart catheterization today with Dr. Kc which demonstrated distal left main stenosis 70%, ostial LAD stenosis 70%, proximal LAD stenosis at the takeoff of a diagonal branch 95%, ostial circumflex stenosis 60-70%, ramus stenosis 70%, and mid RCA stenosis 70%. Due to these findings consultation was placed to cardiothoracic surgery for surgical revascularization recommendations. Review of Systems Review of systems was completed and was negative except as noted - Cardiovascular Reports as per HPI, Reports chest pain - Gastrointestinal Reports as per HPI, Reports nausea Past Medical History Past Medical History: Coronary Artery Disease (CAD), Diabetes Mellitus, Hyperlipidemia, Hypertension, Myocardial Infarction ([place]) Additional Past Medical History / Comment(s): PAD with previous stenting to the left lower extremity History of Any Multi-Drug Resistant Organisms: None Reported Past Surgical History: Appendectomy, Heart Catheterization With Stent, Orthopedi c Surgery Additional Past Surgical History / Comment(s): Right shoulder surgery; cataract surgery Additional Past Anesthesia/Blood Transfusion Reaction / Comm: No history of blood transfusion; no anesthesia difficulties Date of Last Stent Placement:: 2018 Past Psychological History: No Psychological Hx Reported Smoking Status: Current every day smoker Past Alcohol Use History: Occasional Additional Past Alcohol Use History / Comment(s): Drinks 8 beers 1 day per week Past Drug Use History: None Reported Additional History: Currently smokes 1 pack per day 50 years - Past Family History Father Family Medical History: Coronary Artery Disease (CAD) Additional Family Medical History / Comment(s): Father with 3 vessel CABG at 47 years old Mother Family Medical History: Coronary Artery Disease (CAD) Brother(s) Family Medical History: Coronary Artery Disease (CAD) Medications and Allergies Home Medications Medication Instructions Recorded Confirmed Type Aspirin EC [Ecotrin Low Dose] 81 mg PO DAILY 06/14/22 06/14/22 History Atorvastatin Calcium [Lipitor] 80 mg PO HS 06/14/22 06/14/22 History Ezetimibe [Zetia] 10 mg PO DAILY 06/14/22 06/14/22 History Metoprolol Succinate (ER) [Toprol 100 mg PO DAILY 06/14/22 06/14/22 History Xl] Nitroglycerin Sl Tabs [Nitrostat] 0.4 mg SUBLINGUAL Q5M PRN 06/14/22 06/14/22 History Pioglitazone HCl 30 mg PO DAILY 06/14/22 06/14/22 History lisinopriL [Zestril] 20 mg PO BID 06/14/22 06/14/22 History metFORMIN HCL 1,000 mg PO BID 06/14/22 06/14/22 History Allergies Allergy/AdvReac Type Severity Reaction Status Date / Time No Known Allergies Allergy Verified 06/14/22 17:56 Surgical - Exam Vital Signs Temp Pulse Resp BP Pulse Ox 98.4 F 98 18 150/77 96 06/14/22 14:57 06/14/22 14:57 06/14/22 14:57 06/14/22 14:57 06/14/22 14:57 CONSTITUTIONAL: Awake and alert, appears comfortable, cooperative, well-de veloped, well-nourished, no pain, no acute distress EYES: Pupils equal, round, reactive to light, normal ocular movement ENT: Moist mucous membranes without oral lesions present NECK: No masses, no bruits, trachea midline RESPIRATORY: Lungs sounds with expiratory wheezes bilaterally. Respirations even, nonlabored. Currently on room air with oxygen saturation 96%. Strong cough. No chest wall deformities. No clubbing or cyanosis present CARDIOVASCULAR: S1, S2 present. Regular rate and rhythm, sinus rhythm on telemetry. Palpable peripheral pulses bilaterally. No edema present. No calf pain or tenderness noted. No significant lower extremity varicosities noted. Left radial Gerard's test less than 8 seconds. GASTROINTESTINAL: Abdomen soft, nontender, nondistended without masses or organomegaly noted. There is no rebound or guarding present. Active bowel sounds present 4 quadrants. GENITOURINARY: Deferred INTEGUMENTARY: Skin is warm and dry with evidence of good perfusion. Right radial T band in place NEUROLOGIC: Cranial nerves II through XII intact, normal coordination, no obvious motor or sensory deficits, speech is normal MUSKULOSKELETAL: Able to move all extremities, strength equal bilaterally, normal posture PSYCHIATRIC: Alert and oriented to person place and time, appropriate affect, intact judgment and insight Results - Labs 06/17/22 08:11 06/17/22 08:11 Abnormal Lab Results - Last 24 Hours (Table) 06/14/22 06/14/22 06/14/22 Range/Units 15:29 15:29 15:35 WBC 11.2 H (3.8-10.6) k/uL RBC (4.30-5.90) m/uL Neutrophils # 7.9 H (1.3-7.7) k/uL APTT (22.0-30.0) sec Glucose 210 H (74-99) mg/dL POC Glucose (mg/dL) (70-110) mg/dL Hemoglobin A1c (0.0-6.0) % Magnesium 1.1 L (1.6-2.3) mg/dL Troponin I 0.060 H* (0.000-0.034) ng/mL Triglycerides (0.00-149.00) mg/dL 06/14/22 06/14/22 06/14/22 Range/Units 17:10 17:10 17:56 WBC (3.8-10.6) k/uL RBC (4.30-5.90) m/uL Neutrophils # (1.3-7.7) k/uL APTT (22.0-30.0) sec Glucose (74-99) mg/dL POC Glucose (mg/dL) 112 H (70-110) mg/dL Hemoglobin A1c 7.2 H (0.0-6.0) % Magnesium (1.6-2.3) mg/dL Troponin I 0.073 H* (0.000-0.034) ng/mL Triglycerides (0.00-149.00) mg/dL 06/14/22 06/14/22 06/14/22 Range/Units 19:25 20:07 22:59 WBC (3.8-10.6) k/uL RBC (4.30-5.90) m/uL Neutrophils # (1.3-7.7) k/uL APTT 40.5 H (22.0-30.0) sec Glucose (74-99) mg/dL POC Glucose (mg/dL) 214 H (70-110) mg/dL Hemoglobin A1c (0.0-6.0) % Magnesium (1.6-2.3) mg/dL Troponin I 0.067 H* (0.000-0.034) ng/mL Triglycerides (0.00-149.00) mg/dL 06/15/22 06/15/22 06/15/22 Range/Units 06:08 07:28 07:28 WBC (3.8-10.6) k/uL RBC (4.30-5.90) m/uL Neutrophils # (1.3-7.7) k/uL APTT 55.0 H (22.0-30.0) sec Glucose 144 H (74-99) mg/dL POC Glucose (mg/dL) 121 H (70-110) mg/dL Hemoglobin A1c (0.0-6.0) % Magnesium (1.6-2.3) mg/dL Troponin I (0.000-0.034) ng/mL Triglycerides 160.00 H (0.00-149.00) mg/dL 06/15/22 06/15/22 06/15/22 Range/Units 11:18 11:18 11:58 WBC (3.8-10.6) k/uL RBC 4.26 L (4.30-5.90) m/uL Neutrophils # (1.3-7.7) k/uL APTT 127.7 H* (22.0-30.0) sec Glucose (74-99) mg/dL POC Glucose (mg/dL) 137 H (70-110) mg/dL Hemoglobin A1c (0.0-6.0) % Magnesium (1.6-2.3) mg/dL Troponin I (0.000-0.034) ng/mL Triglycerides (0.00-149.00) mg/dL Diabetes panel 06/14/22 06/14/22 06/15/22 Range/Units 15:29 17:10 07:28 Sodium 138 138 (137-145) mmol/L Potassium 4.8 4.3 (3.5-5.1) mmol/L Chloride 101 104 (98-107) mmol/L Carbon Dioxide 24 25 (22-30) mmol/L BUN 18 13 (9-20) mg/dL Creatinine 0.86 0.74 (0.66-1.25) mg/dL Glucose 210 H 144 H (74-99) mg/dL Hemoglobin A1c 7.2 H (0.0-6.0) % Calcium 9.6 8.7 (8.4-10.2) mg/dL AST 30 (17-59) U/L ALT 28 (4-49) U/L Alkaline Phosphatase 79 (38-126) U/L Total Protein 7.1 (6.3-8.2) g/dL Albumin 4.8 (3.5-5.0) g/dL Triglycerides 160.00 H (0.00-149.00) mg/dL HDL Cholesterol 44.10 (40.00-60.00) mg/dL Calcium panel 06/14/22 06/15/22 Range/Units 15:29 07:28 Calcium 9.6 8.7 (8.4-10.2) mg/dL Albumin 4.8 (3.5-5.0) g/dL Pituitary panel 06/14/22 06/15/22 Range/Units 15:29 07:28 Sodium 138 138 (137-145) mmol/L Potassium 4.8 4.3 (3.5-5.1) mmol/L Chloride 101 104 (98-107) mmol/L Carbon Dioxide 24 25 (22-30) mmol/L BUN 18 13 (9-20) mg/dL Creatinine 0.86 0.74 (0.66-1.25) mg/dL Glucose 210 H 144 H (74-99) mg/dL Calcium 9.6 8.7 (8.4-10.2) mg/dL Adrenal panel 06/14/22 06/15/22 Range/Units 15:29 07:28 Sodium 138 138 (137-145) mmol/L Potassium 4.8 4.3 (3.5-5.1) mmol/L Chloride 101 104 (98-107) mmol/L Carbon Dioxide 24 25 (22-30) mmol/L BUN 18 13 (9-20) mg/dL Creatinine 0.86 0.74 (0.66-1.25) mg/dL Glucose 210 H 144 H (74-99) mg/dL Calcium 9.6 8.7 (8.4-10.2) mg/dL Total Bilirubin 0.6 (0.2-1.3) mg/dL AST 30 (17-59) U/L ALT 28 (4-49) U/L Alkaline Phosphatase 79 (38-126) U/L Total Protein 7.1 (6.3-8.2) g/dL Albumin 4.8 (3.5-5.0) g/dL - Imaging Chest x-ray: report reviewed, image reviewed EKG: image reviewed Additional studies: Heart catheterization films reviewed with Dr. Mcgraw Assessment and Plan Assessment: 1. Triple-vessel coronary artery disease with left main disease, non-STEMI this admission 2. History of previous PCI 3. Hypertension 4. Hyperlipidemia, treated, cholesterol 154, LDL 78, triglycerides 160 5. Wkw-ozcomgi-kslyljgzv diabetes, current hemoglobin A1c 7.2% 6. Current tobacco dependence 7. Peripheral arterial disease with left lower extremity stenting 8. Family history of premature coronary artery disease with father having 3 vessel CABG at 47 years old Plan: The patient was seen and examined at the bedside with Dr. Mcgraw. Chart/diagnostics were reviewed. The usual perioperative course of coronary artery bypass surgery was discussed in detail with the patient and his as well as son at the bedside, risks and benefits were reviewed, all questions were answered, and the patient does consent to surgery. Preoperative testing was initiated, once completed will calculate STS risk score and discuss with the patient. 5 m walk test to be completed. Pulmonology consulted for clearance. Smoking cessation education and counseling was provided, patient was strongly encouraged to quit smoking completely. We will tentatively schedule the patient for surgical myocardial revascularization with left internal mammary artery, left radial artery harvest, endoscopic vein harvest, and ligation of the left atrial appendage on 06/18/[address] Mcgraw, pending the outcome of all preoperative testing. The patient is currently chest pain free and hemodynamically stable. Transthoracic echocardiogram films were reviewed, EF 45-50%, basal, inferior, inferoseptal hypokinesis noted, and trace to mild tricuspid regurgitation. Carotid Dopplers were completed demonstrating no significant stenosis. We will obtain CT of chest without contrast to evaluate the ascending aorta for calcification. Recommend continuing aspirin, statin, beta lidya therapy. Medical management of other comorbidities per internal medicine. Thank you Dr. Kc for this consult. More recommendations to follow. I have personally seen and examined the patient, performed the documentation and the assessment and plan as written. Number of minutes spent on the visit: 30. Mckenzie Frederick NP-C ATTENDING ADDENDUM: I have seen and examined the patient with VENEER JOINER above. Agree with her assessment. 67 y/o M admitted with NSTEMI with EF 45% and no valvular abnormalities. We will plan for coronary artery bypass grafting this admission. He will likely need CABG x 3-4, GRESHAM-?diag-LAD, SV-PDA, Radial to OM. His STS risk of mortality is about 1%. All of these findings and surgical plan were discussed with the patient and his family. I spent 45 minutes evaluating and discussing these findings with the patient. Dr. Michael Mcgraw
[2022-06-15] MEDS: IPRATROPIUM-ALBUTEROL 3 ML NEB INHALATION SCH ×2 (16:12→20:37)
--- NOTE | 2022-06-15 16:14 | P.CNPUL ---
History of Present Illness Consult date: 06/15/22 History of present illness: I was asked asked to evaluate this patient's respiratory status and the patient is being considered for cardiac bypass surgery. The patient is a 67-year-old male with known history of COPD, hypertension, hyperlipidemia and diabetes mellitus and the patient has history of chronic smoking. He came into the hospital because of progressive exertional dyspnea and the patient had an abnormal stress test and the patient had mild elevation of the troponins. Cardiac catheterization was done and the patient was found to have calcified left main, critical stenosis of the distal left main, severe stenosis of the ostium and the proximal LAD and significant disease involving the circumflex, ramus, and RCA. Based on those findings, recommendations are coronary artery bypass surgery. The left ventricular end-diastolic pressure is around 16-20. Echo of the heart showed mild LV dysfunction and inferior wall infarction and hypokinesis. No significant valvular abnormalities. Carotid Dopplers are showing bilateral atherosclerotic plaques and a chest x-ray showed no acute cardiopulmonary process. There is hyperinflation suggestive underlying COPD. Review of Systems Constitutional: Denies chills, Denies fever Eyes: denies as per HPI, denies blurred vision, denies bulging eye, denies decreased vision, denies diplopia, denies discharge, denies dry eye, denies irritation, denies itching, denies pain, denies photophobia, denies loss of peripheral vision, denies loss of vision, denies tunnel vision/blind spots Ears: deny: decreased hearing, ear discharge, earache, tinnitus Ears, nose, mouth and throat: Reports as per HPI Breasts: absent: as per HPI, gynecomastia Cardiovascular: Reports decreased exercise tolerance, Reports dyspnea on exertion Respiratory: Reports dyspnea Gastrointestinal: Reports as per HPI Genitourinary: Reports as per HPI Musculoskeletal: Reports as per HPI Musculoskeletal: absent: ankle pain, ankle stiffness, ankle swelling Integumentary: Reports as per HPI Neurological: Reports as per HPI Psychiatric: Reports as per HPI Endocrine: Reports as per HPI (I did) Hematologic/Lymphatic: Reports as per HPI Allergic/Immunologic: Reports as per HPI Past Medical History Past Medical History: Coronary Artery Disease (CAD), Diabetes Mellitus, Hyperlipidemia, Hypertension History of Any Multi-Drug Resistant Organisms: None Reported Past Surgical History: Heart Catheterization With Stent, Orthopedic Surgery Date of Last Stent Placement:: 2018 Past Psychological History: No Psychological Hx Reported Smoking Status: Current every day smoker Past Alcohol Use History: Occasional Past Drug Use History: None Reported - Past Family History Father Family Medical History: Coronary Artery Disease (CAD) Additional Family Medical History / Comment(s): Father with 3 vessel CABG at 47 years old Mother Family Medical History: Coronary Artery Disease (CAD) Brother(s) Family Medical History: Coronary Artery Disease (CAD) Medications and Allergies Home Medications Medication Instructions Recorded Confirmed Type Aspirin EC [Ecotrin Low Dose] 81 mg PO DAILY 06/14/22 06/14/22 History Atorvastatin Calcium [Lipitor] 80 mg PO HS 06/14/22 06/14/22 History Ezetimibe [Zetia] 10 mg PO DAILY 06/14/22 06/14/22 History Metoprolol Succinate (ER) [Toprol 100 mg PO DAILY 06/14/22 06/14/22 History Xl] Nitroglycerin Sl Tabs [Nitrostat] 0.4 mg SUBLINGUAL Q5M PRN 06/14/22 06/14/22 History Pioglitazone HCl 30 mg PO DAILY 06/14/22 06/14/22 History lisinopriL [Zestril] 20 mg PO BID 06/14/22 06/14/22 History metFORMIN HCL 1,000 mg PO BID 06/14/22 06/14/22 History Allergies Allergy/AdvReac Type Severity Reaction Status Date / Time No Known Allergies Allergy Verified 06/14/22 17:56 Physical Exam Vitals: Vital Signs Temp Pulse Pulse Pulse Resp BP BP 06/15/22 12:32 87 16 150/71 06/15/22 12:02 73 16 152/83 06/15/22 11:32 80 16 159/81 06/15/22 11:17 75 16 135/81 06/15/22 11:02 69 16 165/80 06/15/22 10:47 79 16 159/86 06/15/22 08:45 98.0 F 91 16 145/80 06/15/22 03:24 98 F 69 15 124/67 06/14/22 23:23 97.8 F 73 15 127/66 06/14/22 19:39 98.5 F 93 18 139/69 06/14/22 18:15 97.8 F 70 18 144/67 06/14/22 17:33 83 16 156/88 06/14/22 16:10 90 16 148/90 06/14/22 15:22 96 16 184/96 06/14/22 14:57 98.4 F 98 18 150/77 Pulse Ox 06/15/22 12:32 95 06/15/22 12:02 98 06/15/22 11:32 97 06/15/22 11:17 98 06/15/22 11:02 96 06/15/22 10:47 98 06/15/22 08:45 96 06/15/22 03:24 97 06/14/22 23:23 96 06/14/22 19:39 95 06/14/22 18:15 97 06/14/22 17:33 96 06/14/22 16:10 98 06/14/22 15:22 99 06/14/22 14:57 96 Intake and Output 06/14/22 06/15/22 06/15/22 22:59 06:59 14:59 Intake Total 540 71.333 330 Balance 540 71.333 330 Intake: IV 150 Intake, IV Titration 71.333 Amount Heparin Sod,Pork in 0.45% 71.333 NaCl 25,000 unit In 0.45 % NaCl 1 250ml.bag @ 11. 603 UNITS/KG/HR 10 mls/hr IV .Q24H [facility] Rx#: [id number] Oral 540 180 Other: Voiding Method Toilet # Voids 1 Weight 86.183 kg Gen. appearance the patient is calm and comfortable no acute distress the patient is currently on room air oxygen. The patient appeared well nourished and normally developed. Vital signs as documented. Head exam is unremarkable. No scleral icterus or corneal arcus noted. Neck is without jugular venous distension, thyromegaly, or carotid bruits. Carotid upstrokes are brisk bilaterally. Lungs are diminished breath sounds bilaterally and the patient is bronchospastic and wheezy Cardiac exam reveals the PMI to be normally sized and situated. Rhythm is regular. First and second heart sounds normal. No murmurs, rubs or gallops. Abdominal exam reveals normal bowel sounds, no masses, no organomegaly and no aortic enlargement. Extremities are nonedematous and both femoral and pedal pulses are normal. Examination of the skin revealed no evidence of significant rashes, suspicious appearing nevi or other concerning lesions. Neurologically, the patient is awake and alert and the patient does not have any focal neurological deficit. Cranial nerves are essentially intact. Results - Laboratory Findings CBC and BMP: 06/15/22 11:18 06/15/22 07:28 PT/INR, D-dimer PT 11.3 sec (9.0-12.0) 06/15/22 11:18 INR 1.0 (<1.2) 06/15/22 11:18 Abnormal lab findings: Abnormal Labs 06/14/22 06/14/22 06/14/22 15:29 15:29 15:35 WBC 11.2 H RBC Neutrophils # 7.9 H APTT Glucose 210 H POC Glucose (mg/dL) Hemoglobin A1c Magnesium 1.1 L Troponin I 0.060 H* Triglycerides 06/14/22 06/14/22 06/14/22 17:10 17:10 17:56 WBC RBC Neutrophils # APTT Glucose POC Glucose (mg/dL) 112 H Hemoglobin A1c 7.2 H Magnesium Troponin I 0.073 H* Triglycerides 06/14/22 06/14/22 06/14/22 19:25 20:07 22:59 WBC RBC Neutrophils # APTT 40.5 H Glucose POC Glucose (mg/dL) 214 H Hemoglobin A1c Magnesium Troponin I 0.067 H* Triglycerides 06/15/22 06/15/22 06/15/22 06:08 07:28 07:28 WBC RBC Neutrophils # APTT 55.0 H Glucose 144 H POC Glucose (mg/dL) 121 H Hemoglobin A1c Magnesium Troponin I Triglycerides 160.00 H 06/15/22 06/15/22 06/15/22 11:18 11:18 11:58 WBC RBC 4.26 L Neutrophils # APTT 127.7 H* Glucose POC Glucose (mg/dL) 137 H Hemoglobin A1c Magnesium Troponin I Triglycerides - Diagnostic Findings Chest x-ray: image reviewed Assessment and Plan Plan: Symptomatic multivessel coronary artery disease, please refer to the cardiac catheterization Mild systolic heart failure with impairment of the LV ejection fraction, estimated to be around 45-50% and mild elevation of the left ventricular end- diastolic pressures Acute non-ST segment elevation myocardial infarction COPD, chronic, with ongoing bronchospasm wheezing. No signs of any acute exacerbation and the patient is a chronic smoker and the patient is not using any form of respiratory medications as maintenance on outpatient basis. Chest x-ray is essentially clear for now. Await establish a baseline FEV1 Diabetes mellitus Hypertension Hyperlipidemia History of smoking Plan Start the patient on DuoNeb nebulized treatments 4 times a day in combination with IV Solu-Medrol 60 mg every 8 hours. Steroids will be given over the next 24 hours. The patient has COPD as the patient is actively bronchospastic and wheezy. Chest x-ray was reviewed. We'll provide the patient incentive spirometer. We'll obtain a baseline FEV1. Will be involved in his postop care, medical ventilator and attempt to any postoperative pulmonary issues. We'll continue to follow. Patient is tentatively scheduled to undergo surgery on 06/18/2022.
[2022-06-15 16:32] LABS: Glucose,Whole Blood 144 mg/dL (70-110)
[2022-06-15] MEDS: methylPREDNISolone SOD SUCCI 125 MG/2 ML VIAL IV SCH ×2 (17:07→23:13)
[2022-06-15 20:41] LABS: Glucose,Whole Blood 256 mg/dL (70-110)
--- NOTE | 2022-06-15 20:48 | CT ---
EXAMINATION TYPE: CT chest wo con CT DLP: 489.7 mGycm, Automated exposure control for dose reduction was used. DATE OF EXAM: 06/15/2022 5:00 PM COMPARISON: None CLINICAL INDICATION:Male, 67 years old with history of assess ascending aorta for calcification, asse ss ascending aorta for calcification TECHNIQUE: Multiple axial images were obtained through the chest. Sagittal and coronal reformats were created for review. Contrast used: none. Oral contrast used: none. FINDINGS: LUNGS/ PLEURA: No evidence of focal consolidation, pneumothorax or pleural effusion. Posterior streak y dependent subsegmental atelectasis 6 mm pulmonary nodule is seen in the left lower lobe peripherally image 42. AIRWAY: Patent and unremarkable. HEART: The heart is mildly enlarged for size. There is moderate to severe coronary artery atheroscler osis. MEDIASTINUM: No gross evidence of adenopathy. VASCULATURE: Atherosclerotic calcifications are present throughout the aorta and its branches. Overa ll calcifications are worsening aortic arch and origin of the great vessels. MUSCULOSKELETAL: No acute osseous abnormalities SOFT TISSUES/LYMPH NODES: Unremarkable. LOWER NECK: No significant findings. UPPER ABDOMEN: Layering gallstones are seen in the gallbladder. IMPRESSION: 1. Moderate to severe coronary artery atherosclerosis as well as atherosclerosis of the aorta which is mild. 2. Left lower lobe 6 mm pulmonary nodule. Attention on follow-up imaging in 6-[address] [facility], 06/15/2022 5:00 PM, [id number], [id number], CT chest wo con
[2022-06-15] MEDS: ATORVASTATIN 80 MG TAB PO SCH (20:50)
[2022-06-15] MEDS: INSULIN DETEMIR (LEVEMIR) 100 UNIT/ML SYR SQ SCH (20:50)
[2022-06-16] MEDS: INSULIN ASPART (NovoLOG) 100 UNIT/ML VIAL SQ SCH ×4 (06:02→20:09)
[2022-06-16 06:09] LABS: Glucose,Whole Blood 221 mg/dL (70-110)
[2022-06-16] MEDS ORDERED: HEPARIN SODIUM,PORCINE 2,500 UNIT in SODIUM CHLORIDE 0.9% 250 ML IRRIGATION PRN (07:00)
[2022-06-16] MEDS ORDERED: HEPARIN SODIUM,PORCINE 10,000 UNIT in SODIUM CHLORIDE 0.9% 1,000 ML IRRIGATION PRN (07:00)
--- NOTE | 2022-06-16 07:41 | P.PN ---
Subjective Progress Note Date: 06/16/22 Principal diagnosis: Triple-vessel coronary artery disease with left main disease, non-STEMI this admission. Previous medical history PCI x2, hypertension, hyperlipidemia, ple-rtbvchj-wrdzkpnic diabetes, current tobacco dependence, mild COPD, peripheral arterial disease with left lower extremity stenting, and family history of premature coronary artery disease with father having 3 vessel CABG at 47 years old The patient seen and examined this morning laying in bed in no acute distress. He denies any chest pain or shortness of breath in the last 24 hours. He has been ambulatory in the hallway and to the bathroom without difficulty. Remains in sinus rhythm, hemodynamically stable. Was seen by pulmonology and placed on IV steroids for bronchospasm. STS risk score calculated, patient felt to be low risk with score less than 2% for mortality. 5 meter walk test completed: #1 2.48 sec, #2 2.67 sec, #3 2.57 sec, patient tolerated well. No other new concerns. Objective - Vital Signs Vital signs: Vital Signs Temp 98.0 F 06/16/22 03:27 Pulse 82 06/16/22 03:27 Resp 17 06/16/22 03:27 BP 119/65 06/16/22 03:27 Pulse Ox 93 L 06/16/22 03:27 FiO2 Intake & Output 06/15/22 06/16/22 06/16/22 18:59 06:59 18:59 Intake Total 544.833 74.252 Output Total 700 600 Balance -155.167 -525.748 Weight 86.1 kg Intake: IV 150 Intake, IV Titration 34.833 74.252 Amount Heparin Sod,Pork in 0.45% 34.833 74.252 NaCl 25,000 unit In 0.45 % NaCl 1 250ml.bag @ 11. 603 UNITS/KG/HR 10 mls/hr IV .Q24H [facility] Rx#: [id number] Oral 360 Output: Urine 700 600 Other: Voiding Method Toilet Toilet - Exam CONSTITUTIONAL: Appears comfortable, cooperative, no acute distress RESPIRATORY: Lungs sounds diminished bilaterally. Respirations even, n onlabored. Currently on room air with oxygen saturation 93%. Able to achieve 2500 mL on incentive spirometry. Strong cough. CARDIOVASCULAR: S1, S2 present. Regular rate and rhythm, sinus rhythm on telemetry. Palpable peripheral pulses bilaterally. No edema present. GASTROINTESTINAL: Abdomen soft, nontender, nondistended. Active bowel sounds present 4 quadrants. Tolerating diet. GENITOURINARY: Continues to void INTEGUMENTARY: Skin is warm and dry with evidence of good perfusion. NEUROLOGIC: Cranial nerves II through XII intact MUSKULOSKELETAL: Able to move all extremities, strength equal bilaterally, gait normal PSYCHIATRIC: Alert and oriented to person place and time, appropriate affect, intact judgment and insight - Labs CBC & Chem 7: 06/16/22 07:43 06/16/22 07:43 Labs: Abnormal Lab Results - Last 24 Hours (Table) 06/15/22 06/15/22 06/15/22 Range/Units 07:28 07:28 11:18 RBC 4.26 L (4.30-5.90) m/uL APTT 55.0 H (22.0-30.0) sec Glucose 144 H (74-99) mg/dL POC Glucose (mg/dL) (70-110) mg/dL Triglycerides 160.00 H (0.00-149.00) mg/dL 06/15/22 06/15/22 06/15/22 Range/Units 11:18 11:58 16:31 RBC (4.30-5.90) m/uL APTT 127.7 H* (22.0-30.0) sec Glucose (74-99) mg/dL POC Glucose (mg/dL) 137 H 144 H (70-110) mg/dL Triglycerides (0.00-149.00) mg/dL 06/15/22 06/15/22 06/15/22 Range/Units 16:35 20:26 22:23 RBC (4.30-5.90) m/uL APTT 33.3 H 76.2 H (22.0-30.0) sec Glucose (74-99) mg/dL POC Glucose (mg/dL) 256 H (70-110) mg/dL Triglycerides (0.00-149.00) mg/dL 06/16/22 Range/Units 05:53 RBC (4.30-5.90) m/uL APTT (22.0-30.0) sec Glucose (74-99) mg/dL POC Glucose (mg/dL) 221 H (70-110) mg/dL Triglycerides (0.00-149.00) mg/dL Microbiology - Last 24 Hours (Table) 06/15/22 14:46 Nasal Screen MRSA/MSSA - Preliminary Nasal Swab - Imaging and Cardiology Results of carotid Dopplers, pulmonary function test, vein and arterial mapping reviewed Assessment and Plan Assessment: 1. Triple-vessel coronary artery disease with left main disease, non-STEMI this admission 2. History of previous PCI 3. Hypertension 4. Hyperlipidemia, treated, cholesterol 154, LDL 78, triglycerides 160 5. Obl-nsyjliq-qpahkuurh diabetes, current hemoglobin A1c 7.2% 6. Current tobacco dependence 7. Mild COPD with preoperative FEV1 71% of predicted 8. Peripheral arterial disease with left lower extremity stenting 9. Family history of premature coronary artery disease with father having 3 vessel CABG at 47 years old Plan: 1. Continue to maximize medical therapy with aspirin, statin, beta lidya therapy. IV heparin per cardiology 2. Encourage continued incentive spirometry use 3. Increase activity, ambulate as tolerated 4. Our plan is for off-pump surgical myocardial revascularization with left internal mammary artery, left radial artery harvest, endoscopic vein harvest, and ligation of the left atrial appendage on 06/18/[address] Mcgraw 5. Bronchodilators, steroids per pulmonology 6. Smoking cessation education and counseling was provided, patient was strongly encouraged to quit smoking completely. Was started on nicotine patch 7. Medical management of other comorbidities per internal medicine 8. Continue to reinforce preoperative teaching 9. More recommendations to follow The patient was seen and examined at the bedside with Dr. Mcgraw. Chart/diagnostics were reviewed. The usual perioperative course of coronary artery bypass surgery was discussed in detail with the patient and his as well as son at the bedside, risks and benefits were reviewed, all questions were answered, and the patient does consent to surgery. Preoperative testing was ini tiated, once completed will calculate STS risk score and discuss with the patient. 5 m walk test to be completed. Pulmonology consulted for clearance. Smoking cessation education and counseling was provided, patient was strongly encouraged to quit smoking completely. We will tentatively schedule the patient for surgical myocardial revascularization with left internal mammary artery, left radial artery harvest, endoscopic vein harvest, and ligation of the left atrial appendage on 06/18/[address] Mcgraw, pending the outcome of all preoperative testing. The patient is currently chest pain free and hemodynamically stable. Transthoracic echocardiogram films were reviewed, EF 45-50%, basal, inferior, inferoseptal hypokinesis noted, and trace to mild tricuspid regurgitation. Carotid Dopplers were completed demonstrating no significant stenosis. We will obtain CT of chest without contrast to evaluate the ascending aorta for calcification. Recommend continuing aspirin, statin, beta lidya therapy. Medical management of other comorbidities per internal medicine. Thank you Dr. Kc for this consult. More recommendations to follow. I have personally seen and examined the patient, performed the documentation and the assessment and plan as written. Number of minutes spent on the visit: 30. Mckenzie Frederick NP-C
[2022-06-16] MEDS: NICOTINE 21MG/24HR PATCH TRANSDERM SCH (07:55)
[2022-06-16] MEDS: methylPREDNISolone SOD SUCCI 125 MG/2 ML VIAL IV SCH ×3 (07:55→23:21)
[2022-06-16] MEDS: EZETIMIBE 10 MG TAB PO SCH (07:56)
[2022-06-16] MEDS: PIOGLITAZONE 30 MG TAB PO SCH (07:56)
[2022-06-16] MEDS: METOPROLOL SUCCINATE (ER) 100 MG TAB.ER.24H PO SCH (07:56)
[2022-06-16] MEDS: NITROGLYCERIN OINT 1 INCH/GM PACKET TOPICAL SCH ×3 (07:56→23:22)
[2022-06-16] MEDS: ASPIRIN 81 MG PO SCH (07:56)
[2022-06-16] MEDS: lisinopriL 20 MG TAB PO SCH ×2 (07:56→20:10)
[2022-06-16 08:00] LABS: Basophils % (A) 0 %; Eosinophils # (A) 0.1 k/uL (0-0.7); Eosinophils % (A) 1 %; HCT 39.2 % (39.0-53.0); HGB 13.2 gm/dL (13.0-17.5); Lymphocytes % (A) 8 %; MCH 31.4 pg (25.0-35.0); MCHC 33.7 g/dL (31.0-37.0); MCV 93.4 fL (80.0-100.0); Mean Platelet Volume 7.5; Monocytes # (A) 0.2 k/uL (0-1.0); Monocytes % (A) 1 %; Neutrophils # (A) 11.8 k/uL (1.3-7.7); Neutrophils % (A) 90 %; Platelet Count 242 k/uL (150-450); RBC 4.19 m/uL (4.30-5.90); WBC 13.2 k/uL (3.8-10.6)
[2022-06-16] MEDS: IPRATROPIUM-ALBUTEROL 3 ML NEB INHALATION SCH ×4 (08:00→20:34)
[2022-06-16 08:18] LABS: Partial Thromboplastin Time 53.6 sec (22.0-30.0); Prothrombin Time 10.7 sec (9.0-12.0)
[2022-06-16 08:22] LABS: ALT 28 U/L (4-49); AST 29 U/L (17-59); African American GFR (CKD) >90 (>60 ml/min/1.73 sqM); Albumin 4.6 g/dL (3.5-5.0); Alkaline Phosphatase 82 U/L (38-126); Anion Gap 14 mmol/L; Blood Urea Nitrogen 12 mg/dL (9-20); Calcium 8.9 mg/dL (8.4-10.2); Carbon Dioxide 20 mmol/L (22-30); Chloride 105 mmol/L (98-107); Glucose 213 mg/dL (74-99); Magnesium 1.3 mg/dL (1.6-2.3); Non-African American GFR(CKD) >90 (>60 ml/min/1.73 sqM); Potassium 4.3 mmol/L (3.5-5.1); Sodium 139 mmol/L (137-145); Total Bilirubin 0.7 mg/dL (0.2-1.3); Total Protein 7.1 g/dL (6.3-8.2)
[2022-06-16] MEDS: MUPIROCIN 2% OINT 22 GM TUBE NASAL SCH ×2 (09:50→20:11)
[2022-06-16] MEDS: MAGNESIUM SULFATE-D5W PMX 1 GM in DEXTROSE/WATER 1 100ML.BAG IVPB SCH ×2 (09:51→10:58)
--- NOTE | 2022-06-16 10:05 | P.PN ---
Subjective Progress Note Date: 06/16/22 PROGRESS NOTE The patient is feeling well this morning, ambulating without any chest discomfort. His breathing is stable. He underwent cardiac catheterization yesterday and was found to have severe triple vessel disease with significant distal left main disease. He is scheduled to undergo CABG on Saturday. He continues to be on IV heparin. He was evaluated by the pulmonary service. He continues to be in sinus mechanism with no evidence of atrial fibrillation. Medications: Aspirin 81 mg daily, Lipitor 80 mg daily, IV heparin, Nitropaste 1 inch every 8 hours, metoprolol succinate 100 mg daily, Actos, Zestril 20 mg twice a day, Zetia and milligrams daily PHYSICAL EXAMINATION: Blood pressure 140/80 heart rate 90 LUNGS: Scattered rhonchi with decreased air exchange, improved since yesterday HEART: Regular rate and rhythm, S1, S2. No S3. systolic ejection murmur ABDOMEN: Soft, nontender, no organomegaly EXTREMETIES: No edema, right radial pulse intact LAB: Hemoglobin 13.2, BUN 12, creatinine 0.65, potassium 4.3, cholesterol 154 with LDL of 77 IMPRESSION: 1. Severe triple-vessel disease with non-STEMI 2. Status post stenting of the RCA and ramus intermedius in the past 3. History of hypertension 4. Hyperlipidemia 5. History of diabetes 6. Chronic tobacco use with COPD PLAN: 1. Continue IV heparin 2. Continue present regimen 3. Proceed with CABG on Saturday 4. Depending on his progress further recommendations will be made Objective - Vital Signs Vital signs: Vital Signs Temp 98.1 F 06/16/22 07:53 Pulse 101 H 06/16/22 08:15 Resp 16 06/16/22 07:53 BP 141/89 06/16/22 07:53 Pulse Ox 94 L 06/16/22 07:53 FiO2 Intake & Output 06/15/22 06/16/22 06/16/22 18:59 06:59 18:59 Intake Total 544.833 74.252 118 Output Total 700 600 Balance -155.167 -525.748 118 Weight 86.1 kg Intake: IV 150 Intake, IV Titration 34.833 74.252 Amount Heparin Sod,Pork in 0.45% 34.833 74.252 NaCl 25,000 unit In 0.45 % NaCl 1 250ml.bag @ 11. 603 UNITS/KG/HR 10 mls/hr IV .Q24H [facility] Rx#: [id number] Oral 360 118 Output: Urine 700 600 Other: Voiding Method Toilet Toilet Toilet - Labs CBC & Chem 7: 06/16/22 07:43 06/16/22 07:43 Labs: Abnormal Lab Results - Last 24 Hours (Table) 06/15/22 06/15/22 06/15/22 Range/Units 07:28 11:18 11:18 WBC (3.8-10.6) k/uL RBC 4.26 L (4.30-5.90) m/uL Neutrophils # (1.3-7.7) k/uL APTT 127.7 H* (22.0-30.0) sec Carbon Dioxide (22-30) mmol/L Creatinine (0.66-1.25) mg/dL Glucose (74-99) mg/dL POC Glucose (mg/dL) (70-110) mg/dL Magnesium (1.6-2.3) mg/dL Triglycerides 160.00 H (0.00-149.00) mg/dL 06/15/22 06/15/22 06/15/22 Range/Units 11:58 16:31 16:35 WBC (3.8-10.6) k/uL RBC (4.30-5.90) m/uL Neutrophils # (1.3-7.7) k/uL APTT 33.3 H (22.0-30.0) sec Carbon Dioxide (22-30) mmol/L Creatinine (0.66-1.25) mg/dL Glucose (74-99) mg/dL POC Glucose (mg/dL) 137 H 144 H (70-110) mg/dL Magnesium (1.6-2.3) mg/dL Triglycerides (0.00-149.00) mg/dL 06/15/22 06/15/22 06/16/22 Range/Units 20:26 22:23 05:53 WBC (3.8-10.6) k/uL RBC (4.30-5.90) m/uL Neutrophils # (1.3-7.7) k/uL APTT 76.2 H (22.0-30.0) sec Carbon Dioxide (22-30) mmol/L Creatinine (0.66-1.25) mg/dL Glucose (74-99) mg/dL POC Glucose (mg/dL) 256 H 221 H (70-110) mg/dL Magnesium (1.6-2.3) mg/dL Triglycerides (0.00-149.00) mg/dL 06/16/22 06/16/22 06/16/22 Range/Units 07:43 07:43 07:43 WBC 13.2 H (3.8-10.6) k/uL RBC 4.19 L (4.30-5.90) m/uL Neutrophils # 11.8 H (1.3-7.7) k/uL APTT 53.6 H (22.0-30.0) sec Carbon Dioxide 20 L (22-30) mmol/L Creatinine 0.65 L (0.66-1.25) mg/dL Glucose 213 H (74-99) mg/dL POC Glucose (mg/dL) (70-110) mg/dL Magnesium 1.3 L (1.6-2.3) mg/dL Triglycerides (0.00-149.00) mg/dL Microbiology - Last 24 Hours (Table) 06/15/22 14:46 Nasal Screen MRSA/MSSA - Preliminary Nasal Swab
[2022-06-16] MEDS: HEPARIN SOD,PORK IN 0.45% NACL 25,000 UNIT in 0.45% NACL 1 250ML.BAG IV SCH (10:58)
--- NOTE | 2022-06-16 10:59 | P.PN ---
Subjective Progress Note Date: 06/16/22 Patient is doing well . Magnesium was low this morning and was repleted. Patient has no complaints. Tentatively, CABG is scheduled for Monday 06/18. Gen: awake, alert HEENT: normocephalic, atraumatic, good hearing acuity, moist mucous membranes Resp: good air exchange, breathing comfortably with no accessory muscle use CVS: good distal perfusion x 4, GI: soft, NTTP, ND : no SPT, no CVAT, caal catheter not present MSK: no pitting edema, no clubbing Neuro: non-focal, moving all extremities Psych: cooperative, euthymic mood Assessment/plan: Unstable angina Multivessel coronary artery disease -Resume heparin drip -Nitropaste -Trend troponin 3. First set troponin 0.60 -Daily EKGs -Cardiology consult -Echocardiogram -Resume aspirin and statin -Nothing by mouth past midnight -Check hemoglobin A1c and lipid panel -CT surgery consult Hypomagnesemia -Replete as needed Suspect underlying COPD -DuoNeb as needed Chronic issues Hypertension Diabetes Hyperlipidemia Tobacco abuse -Resume home meds when available -Hold oral hypoglycemic agents and start Sliding-scale insulin and long-acting insulin -Nicotine patch, patient counseled on smoking cessation Medication reconciliation needs to be completed. will bring his medications from home. CODE STATUS:full code DVT prophylaxis: Heparin drip Discussed with: Patient, ER, rn Anticipated length of stay > than [address]: home A total of 50 minutes was spent on the care of this complex patient more than 50% of the time was spent in counseling and care coordination. Objective - Vital Signs Vital signs: Vital Signs Temp 98.1 F 06/16/22 07:53 Pulse 101 H 06/16/22 08:15 Resp 16 06/16/22 07:53 BP 141/89 06/16/22 07:53 Pulse Ox 94 L 06/16/22 07:53 FiO2 Intake & Output 06/15/22 06/16/22 06/16/22 18:59 06:59 18:59 Intake Total 544.833 74.252 118 Output Total 700 600 500 Balance -155.167 -525.748 -382 Weight 86.1 kg Intake: IV 150 Intake, IV Titration 34.833 74.252 Amount Heparin Sod,Pork in 0.45% 34.833 74.252 NaCl 25,000 unit In 0.45 % NaCl 1 250ml.bag @ 11. 603 UNITS/KG/HR 10 mls/hr IV .Q24H [facility] Rx#: [id number] Oral 360 118 Output: Urine 700 600 500 Other: Voiding Method Toilet Toilet Toilet - Labs CBC & Chem 7: 06/16/22 07:43 06/16/22 07:43 Labs: Abnormal Lab Results - Last 24 Hours (Table) 06/15/22 06/15/22 06/15/22 Range/Units 07:28 11:18 11:18 WBC (3.8-10.6) k/uL RBC 4.26 L (4.30-5.90) m/uL Neutrophils # (1.3-7.7) k/uL APTT 127.7 H* (22.0-30.0) sec Carbon Dioxide (22-30) mmol/L Creatinine (0.66-1.25) mg/dL Glucose (74-99) mg/dL POC Glucose (mg/dL) (70-110) mg/dL Magnesium (1.6-2.3) mg/dL Triglycerides 160.00 H (0.00-149.00) mg/dL 06/15/22 06/15/22 06/15/22 Range/Units 11:58 16:31 16:35 WBC (3.8-10.6) k/uL RBC (4.30-5.90) m/uL Neutrophils # (1.3-7.7) k/uL APTT 33.3 H (22.0-30.0) sec Carbon Dioxide (22-30) mmol/L Creatinine (0.66-1.25) mg/dL Glucose (74-99) mg/dL POC Glucose (mg/dL) 137 H 144 H (70-110) mg/dL Magnesium (1.6-2.3) mg/dL Triglycerides (0.00-149.00) mg/dL 06/15/22 06/15/22 06/16/22 Range/Units 20:26 22:23 05:53 WBC (3.8-10.6) k/uL RBC (4.30-5.90) m/uL Neutrophils # (1.3-7.7) k/uL APTT 76.2 H (22.0-30.0) sec Carbon Dioxide (22-30) mmol/L Creatinine (0.66-1.25) mg/dL Glucose (74-99) mg/dL POC Glucose (mg/dL) 256 H 221 H (70-110) mg/dL Magnesium (1.6-2.3) mg/dL Triglycerides (0.00-149.00) mg/dL 06/16/22 06/16/22 06/16/22 Range/Units 07:43 07:43 07:43 WBC 13.2 H (3.8-10.6) k/uL RBC 4.19 L (4.30-5.90) m/uL Neutrophils # 11.8 H (1.3-7.7) k/uL APTT 53.6 H (22.0-30.0) sec Carbon Dioxide 20 L (22-30) mmol/L Creatinine 0.65 L (0.66-1.25) mg/dL Glucose 213 H (74-99) mg/dL POC Glucose (mg/dL) (70-110) mg/dL Magnesium 1.3 L (1.6-2.3) mg/dL Triglycerides (0.00-149.00) mg/dL Microbiology - Last 24 Hours (Table) 06/15/22 14:46 Nasal Screen MRSA/MSSA - Preliminary Nasal Swab
--- NOTE | 2022-06-16 11:36 | P.PN ---
Subjective Progress Note Date: 06/16/22 06/16/2022, the patient is doing well. No chest pain. No shortness of breath. Last bronchus spastic and wheezy compared to yesterday. The patient underwent spirometry yesterday and FEV1 is on that of 73% of predicted. He is currently on bronchodilators. He is also on IV Solu-Medrol. He was started on Levemir insulin 10 units along with that slight scale insulin coverage. No nausea. No chest pain. No significant shortness of breath. No cardiac arrhythmias. He remains on IV heparin. Objective - Vital Signs Vital signs: Vital Signs Temp 98.1 F 06/16/22 07:53 Pulse 88 06/16/22 11:05 Resp 16 06/16/22 11:05 BP 118/62 06/16/22 11:05 Pulse Ox 96 06/16/22 11:05 FiO2 Intake & Output 06/15/22 06/16/22 06/16/22 18:59 06:59 18:59 Intake Total 544.833 74.252 245.266 Output Total 700 600 500 Balance -155.167 -525.748 -254.734 Weight 86.1 kg Intake: IV 150 Intake, IV Titration 34.833 74.252 127.266 Amount Heparin Sod,Pork in 0.45% 34.833 74.252 127.266 NaCl 25,000 unit In 0.45 % NaCl 1 250ml.bag @ 11. 603 UNITS/KG/HR 10 mls/hr IV .Q24H [facility] Rx#: [id number] Oral 360 118 Output: Urine 700 600 500 Other: Voiding Method Toilet Toilet Toilet - Exam The patient appeared well nourished and normally developed. Vital signs as documented. Head exam is unremarkable. No scleral icterus or corneal arcus noted. Neck is without jugular venous distension, thyromegaly, or carotid bruits. Carotid upstrokes are brisk bilaterally. Lungs are clear to auscultation and percussion. Cardiac exam reveals the PMI to be normally sized and situated. Rhythm is regular. First and second heart sounds normal. No murmurs, rubs or gallops. Abdominal exam reveals normal bowel sounds, no masses, no organomegaly and no aortic enlargement. Extremities are nonedematous and both femoral and pedal pulses are normal.Examination of the skin revealed no evidence of significant rashes, suspicious appearing nevi or other concerning lesions.Neurologically, the patient is awake and alert and the patient does not have any focal neurological deficit. Cranial nerves are essentially intact. - Labs CBC & Chem 7: 06/16/22 07:43 06/16/22 07:43 Labs: Abnormal Lab Results - Last 24 Hours (Table) 06/15/22 06/15/22 06/15/22 Range/Units 11:18 11:58 16:31 WBC (3.8-10.6) k/uL RBC (4.30-5.90) m/uL Neutrophils # (1.3-7.7) k/uL APTT 127.7 H* (22.0-30.0) sec Carbon Dioxide (22-30) mmol/L Creatinine (0.66-1.25) mg/dL Glucose (74-99) mg/dL POC Glucose (mg/dL) 137 H 144 H (70-110) mg/dL Magnesium (1.6-2.3) mg/dL 06/15/22 06/15/22 06/15/22 Range/Units 16:35 20:26 22:23 WBC (3.8-10.6) k/uL RBC (4.30-5.90) m/uL Neutrophils # (1.3-7.7) k/uL APTT 33.3 H 76.2 H (22.0-30.0) sec Carbon Dioxide (22-30) mmol/L Creatinine (0.66-1.25) mg/dL Glucose (74-99) mg/dL POC Glucose (mg/dL) 256 H (70-110) mg/dL Magnesium (1.6-2.3) mg/dL 06/16/22 06/16/22 06/16/22 Range/Units 05:53 07:43 07:43 WBC (3.8-10.6) k/uL RBC (4.30-5.90) m/uL Neutrophils # (1.3-7.7) k/uL APTT 53.6 H (22.0-30.0) sec Carbon Dioxide 20 L (22-30) mmol/L Creatinine 0.65 L (0.66-1.25) mg/dL Glucose 213 H (74-99) mg/dL POC Glucose (mg/dL) 221 H (70-110) mg/dL Magnesium 1.3 L (1.6-2.3) mg/dL 06/16/22 Range/Units 07:43 WBC 13.2 H (3.8-10.6) k/uL RBC 4.19 L (4.30-5.90) m/uL Neutrophils # 11.8 H (1.3-7.7) k/uL APTT (22.0-30.0) sec Carbon Dioxide (22-30) mmol/L Creatinine (0.66-1.25) mg/dL Glucose (74-99) mg/dL POC Glucose (mg/dL) (70-110) mg/dL Magnesium (1.6-2.3) mg/dL Microbiology - Last 24 Hours (Table) 06/15/22 14:46 Nasal Screen MRSA/MSSA - Preliminary Nasal Swab Assessment and Plan Plan: Symptomatic multivessel coronary artery disease, please refer to the cardiac catheterization, currently on IV heparin, awaiting bypass surgery Mild systolic heart failure with impairment of the LV ejection fraction, estimated to be around 45-50% and mild elevation of the left ventricular end- diastolic pressures Acute non-ST segment elevation myocardial infarction COPD, chronic, with ongoing bronchospasm wheezing. No signs of any acute exacerbation and the patient is a chronic smoker and the patient is not using any form of respiratory medications as maintenance on outpatient basis. Chest x-ray is essentially clear for now. FEV1 is around 70% of predicted and the patient is improved while being on a combination of bronchodilators steroids Diabetes mellitus Hypertension Hyperlipidemia History of smoking Plan Continue bronchodilators and steroids for another 24 hours Clinically improving Continue IV heparin Tentative surgical date on 06/18/2022
[2022-06-16 11:49] LABS: Glucose,Whole Blood 354 mg/dL (70-110)
[2022-06-16 12:02] LABS: Hepatitis A Antibody IgM Nonreactive (Nonreactive); Hepatitis B Core IgM Nonreactive (Nonreactive); Hepatitis B Surface Antigen Nonreactive (Nonreactive); Hepatitis C IgG Antibody Nonreactive (Nonreactive)
[2022-06-16 16:42] LABS: Glucose,Whole Blood 287 mg/dL (70-110)
[2022-06-16 19:55] LABS: Glucose,Whole Blood 270 mg/dL (70-110)
[2022-06-16] MEDS: INSULIN DETEMIR (LEVEMIR) 100 UNIT/ML SYR SQ SCH (20:10)
[2022-06-16] MEDS: ATORVASTATIN 80 MG TAB PO SCH (20:10)
[2022-06-17] MEDS ORDERED: NITROGLYCERIN-D5W PMX 50 MG in DEXTROSE/WATER 1 250ML.BAG IV ONE (05:00)
[2022-06-17] MEDS ORDERED: INSULIN REGULAR 100 UNIT in SODIUM CHLORIDE 0.9% 100 ML IV ONE (05:00)
[2022-06-17] MEDS ORDERED: DILTIAZEM 125 MG in SODIUM CHLORIDE 0.9% 100 ML IV ONE (05:00)
[2022-06-17] MEDS ORDERED: CLEVIDIPINE BUTYRATE 25 MG in EMPTY BAG 1 BAG IV ONE (05:00)
[2022-06-17] MEDS ORDERED: ELECTROLYTE-A SOLUTION 1,000 ML with POTASSIUM CHLORIDE 100 MEQ, MAGNESIUM SULFATE 16 M... IV ONE ×5 (05:00)
[2022-06-17] MEDS ORDERED: NOREPINEPHRINE 4 MG in SODIUM CHLORIDE 0.9% 250 ML IV ONE (05:00)
[2022-06-17] MEDS ORDERED: ELECTROLYTE-A SOLUTION 1,000 ML with POTASSIUM CHLORIDE 40 MEQ, MAGNESIUM SULFATE 16 ME... IV ONE ×5 (05:00)
[2022-06-17 06:26] LABS: Glucose,Whole Blood 257 mg/dL (70-110)
[2022-06-17] MEDS: INSULIN ASPART (NovoLOG) 100 UNIT/ML VIAL SQ SCH ×4 (06:26→20:16)
--- NOTE | 2022-06-17 07:47 | P.PN ---
Subjective Progress Note Date: 06/17/22 Principal diagnosis: Triple-vessel coronary artery disease with left main disease, non-STEMI this admission. Previous medical history PCI x2, hypertension, hyperlipidemia, byk-fnuzfvy-lszoqlhot diabetes, current tobacco dependence, mild COPD, peripheral arterial disease with left lower extremity stenting, and family history of premature coronary artery disease with father having 3 vessel CABG at 47 years old The patient seen and examined this morning sitting up in bed in no acute distress. He denies any chest pain or shortness of breath currently, did have a brief few minute episode of left-sided chest pain in the middle the night when doing his incentive spirometry, resolved without treatment. He has been ambulatory in the hallway and to the bathroom without difficulty. Remains in sinus rhythm, hemodynamically stable. Anticipates surgery tomorrow with no new questions. No other new concerns. Objective - Vital Signs Vital signs: Vital Signs Temp 97.5 F L 06/17/22 03:43 Pulse 83 06/17/22 03:43 Resp 20 06/17/22 03:43 BP 123/63 06/17/22 03:43 Pulse Ox 92 L 06/17/22 03:43 FiO2 Intake & Output 06/16/22 06/17/22 06/17/22 18:59 06:59 18:59 Intake Total 481.266 Output Total 800 Balance -318.734 Weight 87.3 kg Intake: Intake, IV Titration 127.266 Amount Heparin Sod,Pork in 0.45% 127.266 NaCl 25,000 unit In 0.45 % NaCl 1 250ml.bag @ 11. 603 UNITS/KG/HR 10 mls/hr IV .Q24H [facility] Rx#: [id number] Oral 354 Output: Urine 800 Other: Voiding Method Toilet Toilet - Exam CONSTITUTIONAL: Appears comfortable, cooperative, no acute distress RESPIRATORY: Lungs sounds diminished bilaterally. Respirations even, nonl abored. Currently on room air with oxygen saturation 92%. Able to achieve 3000 mL on incentive spirometry. Strong cough. CARDIOVASCULAR: S1, S2 present. Regular rate and rhythm, sinus rhythm on telemetry. Palpable peripheral pulses bilaterally. No edema present. GASTROINTESTINAL: Abdomen soft, nontender, nondistended. Active bowel sounds present 4 quadrants. Tolerating diet. GENITOURINARY: Continues to void INTEGUMENTARY: Skin is warm and dry with evidence of good perfusion. NEUROLOGIC: Cranial nerves II through XII intact MUSKULOSKELETAL: Able to move all extremities, strength equal bilaterally, gait normal PSYCHIATRIC: Alert and oriented to person place and time, appropriate affect, intact judgment and insight - Labs CBC & Chem 7: 06/16/22 07:43 06/16/22 07:43 Labs: Abnormal Lab Results - Last 24 Hours (Table) 06/16/22 06/16/22 06/16/22 Range/Units 07:43 07:43 07:43 WBC 13.2 H (3.8-10.6) k/uL RBC 4.19 L (4.30-5.90) m/uL Neutrophils # 11.8 H (1.3-7.7) k/uL APTT 53.6 H (22.0-30.0) sec Carbon Dioxide 20 L (22-30) mmol/L Creatinine 0.65 L (0.66-1.25) mg/dL Glucose 213 H (74-99) mg/dL POC Glucose (mg/dL) (70-110) mg/dL Magnesium 1.3 L (1.6-2.3) mg/dL 06/16/22 06/16/22 06/16/22 Range/Units 11:45 16:41 19:54 WBC (3.8-10.6) k/uL RBC (4.30-5.90) m/uL Neutrophils # (1.3-7.7) k/uL APTT (22.0-30.0) sec Carbon Dioxide (22-30) mmol/L Creatinine (0.66-1.25) mg/dL Glucose (74-99) mg/dL POC Glucose (mg/dL) 354 H 287 H 270 H (70-110) mg/dL Magnesium (1.6-2.3) mg/dL 06/17/22 Range/Units 06:09 WBC (3.8-10.6) k/uL RBC (4.30-5.90) m/uL Neutrophils # (1.3-7.7) k/uL APTT (22.0-30.0) sec Carbon Dioxide (22-30) mmol/L Creatinine (0.66-1.25) mg/dL Glucose (74-99) mg/dL POC Glucose (mg/dL) 257 H (70-110) mg/dL Magnesium (1.6-2.3) mg/dL Microbiology - Last 24 Hours (Table) 06/15/22 14:46 Nasal Screen MRSA/MSSA - Final Nasal Swab Assessment and Plan Assessment: 1. Triple-vessel coronary artery disease with left main disease, non-STEMI this admission 2. History of previous PCI 3. Hypertension 4. Hyperlipidemia, treated, cholesterol 154, LDL 78, triglycerides 160 5. Ity-hqvcpke-ntscxahmf diabetes, current hemoglobin A1c 7.2% 6. Current tobacco dependence 7. Mild COPD with preoperative FEV1 71% of predicted 8. Peripheral arterial disease with left lower extremity stenting 9. Family history of premature coronary artery disease with father having 3 vessel CABG at 47 years old Plan: 1. Continue to maximize medical therapy with aspirin, statin, beta lidya therapy. IV heparin per cardiology 2. Encourage continued incentive spirometry use 3. Increase activity, ambulate as tolerated 4. Our plan is for off-pump surgical myocardial revascularization with left in ternal mammary artery, left radial artery harvest, endoscopic vein harvest, and ligation of the left atrial appendage on 06/18/[address] Mcgraw 5. Bronchodilators, steroids per pulmonology 6. Smoking cessation education and counseling was provided, patient was strongly encouraged to quit smoking completely. Was started on nicotine patch 7. Medical management of other comorbidities per internal medicine 8. Continue to reinforce preoperative teaching 9. More recommendations to follow
[2022-06-17] MEDS: IPRATROPIUM-ALBUTEROL 3 ML NEB INHALATION SCH ×4 (08:15→20:55)
[2022-06-17] MEDS: MUPIROCIN 2% OINT 22 GM TUBE NASAL SCH ×2 (08:19→20:16)
[2022-06-17] MEDS: METOPROLOL SUCCINATE (ER) 100 MG TAB.ER.24H PO SCH (08:19)
[2022-06-17] MEDS: NICOTINE 21MG/24HR PATCH TRANSDERM SCH (08:19)
[2022-06-17] MEDS: ASPIRIN 81 MG PO SCH (08:19)
[2022-06-17] MEDS: PIOGLITAZONE 30 MG TAB PO SCH (08:19)
[2022-06-17] MEDS: NITROGLYCERIN OINT 1 INCH/GM PACKET TOPICAL SCH ×3 (08:19→23:50)
[2022-06-17] MEDS: methylPREDNISolone SOD SUCCI 125 MG/2 ML VIAL IV SCH (08:19)
[2022-06-17] MEDS: lisinopriL 20 MG TAB PO SCH ×2 (08:19→20:16)
[2022-06-17] MEDS: EZETIMIBE 10 MG TAB PO SCH (08:19)
[2022-06-17] MEDS ORDERED: MD COMMUNICATION TO PHARMACY 1 EACH MISC PO ONE (08:30)
[2022-06-17 09:43] LABS: HCT 40.1 % (39.0-53.0); HGB 13.1 gm/dL (13.0-17.5); MCH 31.7 pg (25.0-35.0); MCHC 32.7 g/dL (31.0-37.0); MCV 97.2 fL (80.0-100.0); Mean Platelet Volume 8.7; Platelet Count 270 k/uL (150-450); RBC 4.12 m/uL (4.30-5.90); RDW 13.2 % (11.5-15.5); WBC 19.4 k/uL (3.8-10.6)
[2022-06-17 09:57] LABS: African American GFR (CKD) >90 (>60 ml/min/1.73 sqM); Anion Gap 14 mmol/L; Blood Urea Nitrogen 19 mg/dL (9-20); Calcium 9.2 mg/dL (8.4-10.2); Carbon Dioxide 23 mmol/L (22-30); Chloride 102 mmol/L (98-107); Glucose 248 mg/dL (74-99); Magnesium 1.7 mg/dL (1.6-2.3); Non-African American GFR(CKD) >90 (>60 ml/min/1.73 sqM); Potassium 5.1 mmol/L (3.5-5.1); Sodium 139 mmol/L (137-145)
--- NOTE | 2022-06-17 11:12 | P.PN ---
Subjective Progress Note Date: 06/17/22 06/16/2022, the patient is doing well. No chest pain. No shortness of breath. Last bronchus spastic and wheezy compared to yesterday. The patient underwent spirometry yesterday and FEV1 is on that of 73% of predicted. He is currently on bronchodilators. He is also on IV Solu-Medrol. He was started on Levemir insulin 10 units along with that slight scale insulin coverage. No nausea. No chest pain. No significant shortness of breath. No cardiac arrhythmias. He remains on IV heparin. 06/17/2022, no complaints and the patient is doing well. Overnight, he did have some limited chest pain which subsequently subsided and the patient remains on IV heparin. He is less bronchospastic and wheezy. I will also take him off the IV Solu-Medrol and put him on DuoNeb nebulized treatments around the clock. He is using incentive spirometer. He was given Levemir insulin for high blood sugar control due to steroid intake. This can be also discontinued. The patient is ready for surgery to be done on 06/18/2022. This will include coronary artery bypass surgery. Objective - Vital Signs Vital signs: Vital Signs Temp 97.5 F L 06/17/22 03:43 Pulse 86 06/17/22 08:26 Resp 20 06/17/22 03:43 BP 123/63 06/17/22 03:43 Pulse Ox 92 L 06/17/22 03:43 FiO2 Intake & Output 06/16/22 06/17/22 06/17/22 18:59 06:59 18:59 Intake Total 481.266 240 Output Total 800 Balance -318.734 240 Weight 87.3 kg Intake: Intake, IV Titration 127.266 Amount Heparin Sod,Pork in 0.45% 127.266 NaCl 25,000 unit In 0.45 % NaCl 1 250ml.bag @ 11. 603 UNITS/KG/HR 10 mls/hr IV .Q24H [facility] Rx#: [id number] Oral 354 240 Output: Urine 800 Other: Voiding Method Toilet Toilet - Exam The patient appeared well nourished and normally developed. Vital signs as documented. Head exam is unremarkable. No scleral icterus or corneal arcus noted. Neck is without jugular venous distension, thyromegaly, or carotid bruits. Carotid upstrokes are brisk bilaterally. Lungs are clear to auscultation and percussion. Cardiac exam reveals the PMI to be normally sized and situated. Rhythm is regular. First and second heart sounds normal. No murmurs, rubs or gallops. Abdominal exam reveals normal bowel sounds, no masses, no organomegaly and no aortic enlargement. Extremities are nonedematous and both femoral and pedal pulses are normal.Examination of the skin revealed no evidence of significant rashes, suspicious appearing nevi or other concerning lesions.Neurologically, the patient is awake and alert and the patient does not have any focal neurological deficit. Cranial nerves are essentially intact. - Labs CBC & Chem 7: 06/17/22 08:11 06/17/22 08:11 Labs: Abnormal Lab Results - Last 24 Hours (Table) 06/16/22 06/16/22 06/16/22 Range/Units 11:45 16:41 19:54 POC Glucose (mg/dL) 354 H 287 H 270 H (70-110) mg/dL 06/17/22 Range/Units 06:09 POC Glucose (mg/dL) 257 H (70-110) mg/dL Microbiology - Last 24 Hours (Table) 06/15/22 14:46 Nasal Screen MRSA/MSSA - Final Nasal Swab Assessment and Plan Plan: Symptomatic multivessel coronary artery disease, please refer to the cardiac catheterization, currently on IV heparin, awaiting bypass surgery, currently free of any chest pain Mild systolic heart failure with impairment of the LV ejection fraction, estimated to be around 45-50% and mild elevation of the left ventricular end- diastolic pressures Acute non-ST segment elevation myocardial infarction COPD, chronic, with ongoing bronchospasm wheezing. No signs of any acute exacerbation and the patient is a chronic smoker and the patient is not using any form of respiratory medications as maintenance on outpatient basis. Chest x-ray is essentially clear for now. FEV1 is around 70% of predicted and the patient is improved while being on a combination of bronchodilators steroids Diabetes mellitus Hypertension Hyperlipidemia History of smoking Plan Continue bronchodilators and steroids for another 24 hours Clinically improving Continue IV heparin Stopped IV Solu-Medrol Stop the Levemir insulin and keep the patient on sliding scale insulin coverage Pulmonary status is stable No pulmonary contraindications for surgery tomorrow Tentative surgical date on 06/18/2022
--- NOTE | 2022-06-17 11:27 | P.PN ---
Subjective Progress Note Date: 06/17/22 Patient is doing well . Patient has no new complaints. Tentatively, CABG is scheduled for Monday 06/18. Gen: awake, alert HEENT: normocephalic, atraumatic, good hearing acuity, moist mucous membranes Resp: good air exchange, breathing comfortably with no accessory muscle use CVS: good distal perfusion x 4, GI: soft, NTTP, ND : no SPT, no CVAT, caal catheter not present MSK: no pitting edema, no clubbing Neuro: non-focal, moving all extremities Psych: cooperative, euthymic mood Assessment/plan: Unstable angina Multivessel coronary artery disease -Resume heparin drip -Nitropaste -Trend troponin 3. First set troponin 0.60 -Daily EKGs -Cardiology consult -Echocardiogram -Resume aspirin and statin -Nothing by mouth past midnight -Check hemoglobin A1c and lipid panel -CT surgery consult Hypomagnesemia -Replete as needed Suspect underlying COPD -DuoNeb as needed Chronic issues Hypertension Diabetes Hyperlipidemia Tobacco abuse -Resume home meds when available -Hold oral hypoglycemic agents and start Sliding-scale insulin and long-acting insulin -Nicotine patch, patient counseled on smoking cessation Medication reconciliation needs to be completed. will bring his medications from home. CODE STATUS:full code DVT prophylaxis: Heparin drip Discussed with: Patient, ER, rn Anticipated length of stay > than [address]: home A total of 50 minutes was spent on the care of this complex patient more than 50% of the time was spent in counseling and care coordination. Objective - Vital Signs Vital signs: Vital Signs Temp 97.8 F 06/17/22 08:18 Pulse 86 06/17/22 08:26 Resp 20 06/17/22 08:18 BP 135/66 06/17/22 08:18 Pulse Ox 99 06/17/22 08:18 FiO2 Intake & Output 06/16/22 06/17/22 06/17/22 18:59 06:59 18:59 Intake Total 481.266 240 Output Total 800 Balance -318.734 240 Weight 87.3 kg Intake: Intake, IV Titration 127.266 Amount Heparin Sod,Pork in 0.45% 127.266 NaCl 25,000 unit In 0.45 % NaCl 1 250ml.bag @ 11. 603 UNITS/KG/HR 10 mls/hr IV .Q24H [facility] Rx#: [id number] Oral 354 240 Output: Urine 800 Other: Voiding Method Toilet Toilet Toilet Urinal - Labs CBC & Chem 7: 06/17/22 08:11 06/17/22 08:11 Labs: Abnormal Lab Results - Last 24 Hours (Table) 06/16/22 06/16/22 06/16/22 Range/Units 11:45 16:41 19:54 WBC (3.8-10.6) k/uL RBC (4.30-5.90) m/uL APTT (22.0-30.0) sec Glucose (74-99) mg/dL POC Glucose (mg/dL) 354 H 287 H 270 H (70-110) mg/dL 06/17/22 06/17/22 06/17/22 Range/Units 06:09 08:11 08:11 WBC 19.4 H (3.8-10.6) k/uL RBC 4.12 L (4.30-5.90) m/uL APTT 47.4 H (22.0-30.0) sec Glucose (74-99) mg/dL POC Glucose (mg/dL) 257 H (70-110) mg/dL 06/17/22 Range/Units 08:11 WBC (3.8-10.6) k/uL RBC (4.30-5.90) m/uL APTT (22.0-30.0) sec Glucose 248 H (74-99) mg/dL POC Glucose (mg/dL) (70-110) mg/dL Microbiology - Last 24 Hours (Table) 06/15/22 14:46 Nasal Screen MRSA/MSSA - Final Nasal Swab
[2022-06-17 11:47] LABS: Glucose,Whole Blood 267 mg/dL (70-110)
[2022-06-17] MEDS: MAGNESIUM SULFATE-D5W PMX 1 GM in DEXTROSE/WATER 1 100ML.BAG IVPB SCH ×2 (12:03→13:16)
[2022-06-17] MEDS: HEPARIN SOD,PORK IN 0.45% NACL 25,000 UNIT in 0.45% NACL 1 250ML.BAG IV SCH ×2 (12:04→23:50)
--- NOTE | 2022-06-17 15:14 | P.PN ---
Subjective Progress Note Date: 06/17/22 PROGRESS NOTE The patient is feeling well this morning, ambulating without any chest discomfort. His breathing is stable. He underwent cardiac catheterization yesterday and was found to have severe triple vessel disease with significant distal left main disease. He is scheduled to undergo CABG on Saturday. He continues to be on IV heparin. He was evaluated by the pulmonary service. He continues to be in sinus mechanism with no evidence of atrial fibrillation. June 17: The patient is doing well, ambulating, has no chest discomfort, dizziness or palpitations. He had some burning in the chest after using the updraft. He denies any nausea or vomiting. He continues to be in sinus mechanism. He is using incentive spirometry. He is scheduled to undergo CABG tomorrow. Medications: Aspirin 81 mg daily, Lipitor 80 mg daily, IV heparin, Nitropaste 1 inch every 8 hours, metoprolol succinate 100 mg daily, Actos, Zestril 20 mg twice a day, Zetia and milligrams daily PHYSICAL EXAMINATION: Blood pressure 137/84 heart rate 87 LUNGS: Mild decrease in the breath sounds, no wheezes HEART: Regular rate and rhythm, S1, S2. No S3. systolic ejection murmur ABDOMEN: Soft, nontender, no organomegaly EXTREMETIES: No edema, LAB: Hemoglobin 13.1, BUN 19, creatinine 0.79 IMPRESSION: 1. Severe triple-vessel disease with non-STEMI 2. Status post stenting of the RCA and ramus intermedius in the past 3. History of hypertension 4. Hyperlipidemia 5. History of diabetes 6. Chronic tobacco use with COPD PLAN: 1. Continue IV heparin 2. Continue present regimen 3. Proceed with CABG on Saturday 4. Depending on his progress further recommendations will be made Objective - Vital Signs Vital signs: Vital Signs Temp 97.8 F 06/17/22 08:18 Pulse 87 06/17/22 13:07 Resp 20 06/17/22 11:15 BP 137/84 06/17/22 11:15 Pulse Ox 95 06/17/22 11:15 FiO2 Intake & Output 06/16/22 06/17/22 06/17/22 18:59 06:59 18:59 Intake Total 481.266 608 Output Total 800 Balance -318.734 608 Weight 87.3 kg Intake: Intake, IV Titration 127.266 250 Amount Heparin Sod,Pork in 0.45% 127.266 250 NaCl 25,000 unit In 0.45 % NaCl 1 250ml.bag @ 11. 603 UNITS/KG/HR 10 mls/hr IV .Q24H [facility] Rx#: [id number] Oral 354 358 Output: Urine 800 Other: Voiding Method Toilet Toilet Toilet Urinal # Voids 2 - Labs CBC & Chem 7: 06/17/22 08:11 06/17/22 08:11 Labs: Abnormal Lab Results - Last 24 Hours (Table) 06/16/22 06/16/22 06/17/22 Range/Units 16:41 19:54 06:09 WBC (3.8-10.6) k/uL RBC (4.30-5.90) m/uL APTT (22.0-30.0) sec Glucose (74-99) mg/dL POC Glucose (mg/dL) 287 H 270 H 257 H (70-110) mg/dL Crossmatch 06/17/22 06/17/22 06/17/22 Range/Units 08:11 08:11 08:11 WBC 19.4 H (3.8-10.6) k/uL RBC 4.12 L (4.30-5.90) m/uL APTT 47.4 H (22.0-30.0) sec Glucose (74-99) mg/dL POC Glucose (mg/dL) (70-110) mg/dL Crossmatch See Detail 06/17/22 06/17/22 Range/Units 08:11 11:39 WBC (3.8-10.6) k/uL RBC (4.30-5.90) m/uL APTT (22.0-30.0) sec Glucose 248 H (74-99) mg/dL POC Glucose (mg/dL) 267 H (70-110) mg/dL Crossmatch Microbiology - Last 24 Hours (Table) 06/15/22 14:46 Nasal Screen MRSA/MSSA - Final Nasal Swab
[2022-06-17 16:40] LABS: Glucose,Whole Blood 233 mg/dL (70-110)
[2022-06-17 20:14] LABS: Glucose,Whole Blood 174 mg/dL (70-110)
[2022-06-17] MEDS: ATORVASTATIN 80 MG TAB PO SCH (20:16)
[2022-06-18] MEDS ORDERED: TRANEXAMIC ACID 2,000 MG in SODIUM CHLORIDE 0.9% 80 ML IV ONE ×4 (05:00)
[2022-06-18] MEDS ORDERED: LACTATED RINGERS 1,000 ML IV SCH (05:00)
[2022-06-18] MEDS ORDERED: PHENYLEPHRINE 40 MG in SODIUM CHLORIDE 0.9% 250 ML IV ONE (05:00)
[2022-06-18] MEDS ORDERED: ALBUMIN HUMAN 5% 500 ML in EMPTY BAG 1 BAG IVPB ONE ×6 (05:00)
[2022-06-18] MEDS ORDERED: ELECTROLYTE-A SOLUTION 1,000 ML with POTASSIUM CHLORIDE 40 MEQ, MAGNESIUM SULFATE 16 ME... IV ONE ×5 (05:00)
[2022-06-18] MEDS ORDERED: HEPARIN SODIUM 1,000 UN/ML (10ML VL) IV ONE (05:00)
[2022-06-18] MEDS ORDERED: ELECTROLYTE-A SOLUTION 1,000 ML with POTASSIUM CHLORIDE 100 MEQ, MAGNESIUM SULFATE 16 M... IV ONE ×5 (05:00)
[2022-06-18] MEDS ORDERED: INSULIN REGULAR 100 UNIT in SODIUM CHLORIDE 0.9% 100 ML IV ONE (05:00)
[2022-06-18] MEDS ORDERED: ALBUMIN HUMAN 25% 50 ML in EMPTY BAG 1 BAG IVPB ONE (05:00)
[2022-06-18] MEDS ORDERED: PROTAMINE SULFATE 250 MG in EMPTY BAG 1 BAG IV ONE (05:00)
[2022-06-18] MEDS ORDERED: PHENYLEPHRINE 10 MG/ML VIAL IV ONE (05:00)
[2022-06-18] MEDS ORDERED: METOPROLOL TARTRATE 12.5 MG TAB PO ONE (05:00)
[2022-06-18] MEDS ORDERED: CHLORHEXIDINE GLUCONATE 15 ML CUP MUCOUS MEM ONE (05:00)
[2022-06-18] MEDS ORDERED: MANNITOL 25% 12.5 GM/50 ML VIAL IV ONE ×2 (05:00)
[2022-06-18] MEDS ORDERED: CALCIUM CHLORIDE 100 MG/ML 10 ML SYRINGE IVP ONE (05:00)
[2022-06-18] MEDS ORDERED: CLEVIDIPINE BUTYRATE 25 MG in EMPTY BAG 1 BAG IV ONE (05:00)
[2022-06-18] MEDS ORDERED: SODIUM BICARB 8.4% 50 ML SYR (1 MEQ/ML) IV ONE (05:00)
[2022-06-18] MEDS ORDERED: MAGNESIUM SULFATE 16.24 MEQ in EMPTY SYRINGE 1 SYR IV ONE (05:00)
[2022-06-18] MEDS ORDERED: PROTAMINE SULFATE 10 MG/ML 25 ML VIAL IV ONE (05:00)
[2022-06-18] MEDS ORDERED: DILTIAZEM 125 MG in SODIUM CHLORIDE 0.9% 100 ML IV ONE (05:00)
[2022-06-18] MEDS ORDERED: PAPAVERINE 360 MG in SODIUM CHLORIDE 0.9% 90 ML IV ONE ×2 (05:00→10:19)
[2022-06-18] MEDS ORDERED: NITROGLYCERIN-D5W PMX 25 MG/250 ML BTL IV ONE (05:00)
[2022-06-18] MEDS ORDERED: NOREPINEPHRINE 4 MG in SODIUM CHLORIDE 0.9% 250 ML IV ONE (05:00)
[2022-06-18] MEDS ORDERED: NITROGLYCERIN-D5W PMX 50 MG in DEXTROSE/WATER 1 250ML.BAG IV ONE (05:00)
[2022-06-18] MEDS ORDERED: ceFAZolin 1,000 MG in SODIUM CHLORIDE 0.9% IRRIGATIO 1,000 ML IRRIGATION ONE (05:00)
[2022-06-18] MEDS ORDERED: HEPARIN SODIUM,PORCINE 5,000 UNIT in SODIUM CHLORIDE 0.9% 500 ML 500 ML IV ONE (05:00)
[2022-06-18] MEDS ORDERED: ATORVASTATIN 10 MG TAB PO ONE (05:00)
[2022-06-18] MEDS ORDERED: ASPIRIN 325 MG TAB PO ONE (05:00)
[2022-06-18 06:23] LABS: Glucose,Whole Blood 146 mg/dL (70-110)
[2022-06-18] MEDS: IPRATROPIUM-ALBUTEROL 3 ML NEB INHALATION SCH ×3 (07:56→19:14)
[2022-06-18] MEDS ORDERED: fentaNYL (PF) 50 MCG/ML 50 ML VIAL ONE (07:59)
[2022-06-18] MEDS ORDERED: VECURONIUM 10 MG VIAL IV ONE (07:59)
[2022-06-18] MEDS ORDERED: LIDOCAINE 2% SYG (PF) 100 MG/5 ML ONE (07:59)
[2022-06-18] MEDS ORDERED: SUCCINYLCHOLINE CHLORIDE 200 MG/10 ML VIAL IV ONE (07:59)
[2022-06-18] MEDS ORDERED: MIDAZOLAM HCL 10 MG/10 ML VIAL ONE (07:59)
[2022-06-18] MEDS ORDERED: PHENYLEPHRINE-0.9% NACL SYG 1,000 MCG/10 ML SYRINGE ONE (07:59)
[2022-06-18] MEDS ORDERED: PROTAMINE SULFATE 10 MG/ML 5 ML VIAL IV ONE (07:59)
[2022-06-18] MEDS ORDERED: SUFentanil 50 MCG/ML 1 ML AMP IV ONE (07:59)
[2022-06-18] MEDS ORDERED: ALBUMIN HUMAN 5% (25gm) 500 ML VIAL IVPB ONE (07:59)
[2022-06-18] MEDS ORDERED: ePHEDrine 50 MG/ML 1 ML VIAL ONE (07:59)
[2022-06-18] MEDS ORDERED: INSULIN REGULAR 100 UNIT/ML VIAL (IV) ONE (07:59)
[2022-06-18] MEDS ORDERED: PROPOFOL 10 MG/ML 20 ML VIAL IV ONE (07:59)
[2022-06-18] MEDS ORDERED: WATER FOR INJECTION, STERILE 10 ML VIAL IV ONE (07:59)
[2022-06-18] MEDS ORDERED: MAGNESIUM SULFATE 4 MEQ/ML 10ML VIAL ONE (07:59)
[2022-06-18] MEDS ORDERED: HEPARIN SODIUM,PORCINE 10,000 UNIT/ML 1 ML VIAL ONE (07:59)
[2022-06-18] MEDS ORDERED: SODIUM CHLORIDE 0.9% IRRIG 1,000 ML BTL IRRIGATION ONE (07:59)
[2022-06-18 08:40] LABS: ABG Base Excess -0.9 mmol/L; ABG Glucose Whole Blood 137 mg/dL (75-99); ABG HCO3 24 mmol/L (21-25); ABG Hematocrit 36 % (34.0-46.0); ABG Ionized Calcium 4.7 mg/dL (4.5-5.3); ABG Lactic Acid Whole Blood 1.9 mmol/L (0.5-1.6); ABG PCO2 39 mmHg (35-45); ABG PH 7.39 (7.35-7.45); ABG PO2 340 mmHg (83-108); ABG Potassium Whole Blood 4.1 mmol/L (3.4-4.5); ABG Sodium Whole Blood 138 mmol/L (135-146); ABG TCO2 25 mmol/L (19-24)
--- NOTE | 2022-06-18 09:28 | P.ANPRN ---
Procedure Note - Anesthesia - Invasive Line Right Central Line Time Out Performed: Yes (0722) Date of Procedure: 06/18/22 Time of Procedure: 07:23 Location of Patient: Phase I Preparation: Sterile Prep, Sterile Dressing Arterial Line Location: Radial Ultrasound Used: Yes Purpose - Visualization and Identification of Vasculature: Yes Needle Guage: 18g angio Image Stored and Saved: Yes Narrative: Central line placement per sterile protocol utilized. +local +angio +cvp +jwire +uneventful dilation and introduction right IJ Cordis. Lumen bled and flushed
--- NOTE | 2022-06-18 09:29 | P.ANPRN ---
Procedure Note - Anesthesia - Invasive Line Right [place] Time Out Performed: Yes (0722) Date of Procedure: 06/18/22 Time of Procedure: 07:37 Location of Patient: Phase I Preparation: Sterile Prep, Sterile Dressing Arterial Line Location: Radial Ultrasound Used: No Purpose - Visualization and Identification of Vasculature: No Image Stored and Saved: No Narrative: Central line placement per sterile protocol utilized. swan floated sterilly in sheath in 2 attempts. To wedge at 55. B/d. w/d 5cm and secured at 50cm.
[2022-06-18] MEDS ORDERED: SODIUM CHLORIDE 0.9% 500 ML 500 ML with HEPARIN SODIUM,PORCINE 5,000 UNIT IV ONE ×2 (10:19)
[2022-06-18] MEDS ORDERED: ceFAZolin 1,000 MG in SODIUM CHLORIDE 0.9% 1,000 ML IRRIGATION ONE (10:20)
[2022-06-18 10:25] LABS: ABG Base Excess -0.4 mmol/L; ABG Glucose Whole Blood 171 mg/dL (75-99); ABG HCO3 23 mmol/L (21-25); ABG Hematocrit 35 % (34.0-46.0); ABG Ionized Calcium 4.5 mg/dL (4.5-5.3); ABG Lactic Acid Whole Blood 1.7 mmol/L (0.5-1.6); ABG Oxygen Saturation 98.9 % (94-97); ABG PCO2 34 mmHg (35-45); ABG PH 7.44 (7.35-7.45); ABG PO2 151 mmHg (83-108); ABG Sodium Whole Blood 137 mmol/L (135-146); ABG TCO2 24 mmol/L (19-24)
[2022-06-18 11:26] LABS: ABG Base Excess -1.4 mmol/L; ABG Glucose Whole Blood 151 mg/dL (75-99); ABG HCO3 22 mmol/L (21-25); ABG Hematocrit 32 % (34.0-46.0); ABG Ionized Calcium 4.4 mg/dL (4.5-5.3); ABG Oxygen Saturation 99.3 % (94-97); ABG PCO2 33 mmHg (35-45); ABG PH 7.44 (7.35-7.45); ABG PO2 165 mmHg (83-108); ABG Potassium Whole Blood 3.8 mmol/L (3.4-4.5); ABG Sodium Whole Blood 137 mmol/L (135-146); ABG TCO2 23 mmol/L (19-24)
[2022-06-18 12:23] LABS: ABG Lactic Acid Whole Blood 2.4 mmol/L (0.5-1.6)
[2022-06-18 12:30] LABS: ABG Glucose Whole Blood 126 mg/dL (75-99); ABG HCO3 23 mmol/L (21-25); ABG Hematocrit 31 % (34.0-46.0); ABG Ionized Calcium 4.8 mg/dL (4.5-5.3); ABG Oxygen Saturation 97.2 % (94-97); ABG PCO2 41 mmHg (35-45); ABG PH 7.35 (7.35-7.45); ABG PO2 101 mmHg (83-108); ABG Potassium Whole Blood 3.9 mmol/L (3.4-4.5); ABG Sodium Whole Blood 138 mmol/L (135-146); ABG TCO2 24 mmol/L (19-24)
[2022-06-18 12:36] LABS: ABG Lactic Acid Whole Blood 2.4 mmol/L (0.5-1.6)
[2022-06-18] MEDS ORDERED: AMIODARONE 360 MG in DEXTROSE 5% IN WATER 200 ML IV PRN ×2 (12:44)
[2022-06-18] MEDS ORDERED: AMIODARONE 450 MG in DEXTROSE 5% IN WATER 250 ML IV PRN ×2 (12:44)
[2022-06-18] MEDS ORDERED: DEXTROSE 50% SYRINGE 50 ML IVP PRN ×2 (12:44)
[2022-06-18] MEDS ORDERED: BENZOCAINE/MENTHOL LOZENG 1 EACH LOZENGE MUCOUS MEM PRN (12:44)
[2022-06-18] MEDS ORDERED: Magnesium Replacement Protocol 1 EACH MISC MISCELLANE PRN (12:44)
[2022-06-18] MEDS ORDERED: DEXTROSE 5% IN WATER 100 ML with AMIODARONE 150 MG IV PRN (12:44)
[2022-06-18] MEDS ORDERED: METOCLOPRAMIDE 5 MG/ML 2 ML VIAL IVP PRN (12:44)
[2022-06-18] MEDS ORDERED: Potassium Replacement Protocol 1 EACH MISC MISCELLANE PRN (12:44)
[2022-06-18] MEDS ORDERED: hydrALAZINE HCL 20 MG/ML 1 ML VIAL IVP PRN (12:44)
[2022-06-18] MEDS ORDERED: IPRATROPIUM-ALBUTEROL 3 ML NEB INHALATION PRN (12:44)
[2022-06-18] MEDS ORDERED: ONDANSETRON 4 MG/2 ML VIAL IVP PRN (12:44)
[2022-06-18] MEDS ORDERED: NITROGLYCERIN-D5W PMX 50 MG in DEXTROSE/WATER 1 250ML.BAG IV SCH (12:45)
[2022-06-18] MEDS ORDERED: CLEVIDIPINE BUTYRATE 25 MG in EMPTY BAG 1 BAG IV SCH (12:45)
[2022-06-18] MEDS ORDERED: DILTIAZEM 125 MG in SODIUM CHLORIDE 0.9% 100 ML IV SCH (12:45)
[2022-06-18] MEDS ORDERED: DEXMEDETOMIDINE/0.9% NACL(PMX) 400 MCG in EMPTY BAG 1 BAG IV SCH (12:45)
--- NOTE | 2022-06-18 13:14 | P.OP ---
Date of Procedure: 06/18/22 Preoperative Diagnosis: 1. 3 vessel coronary artery disease 2. Non ST Elevation Myocardial Infarction Postoperative Diagnosis: Same Procedure(s) Performed: 1. Off pump coronary artery bypass grafting x 4. Left internal thoracic artery to diagonal to left internal mammary artery. Saphenous vein to posterior descending artery. Left radial artery from aorta to ramus intermedius. 2. Endoscopic left radial and bilateral greater saphenous vein harvest 3. Left atrial appendage ligation with #35 AtriClip 4. Trans-esophageal echo Implants: #35mm AtriClip Anesthesia: DINH Surgeon: Michael Mcgraw Personal Financial Planner #1: Дмитрий Holliday Personal Financial Planner #2: Tenzin Cha Estimated Blood Loss (ml): 500 Pathology: none sent Condition: stable Disposition: ICU Indications for Procedure: This patient is a 67 year-old male who has a significant smoking history who presented to the hospital with chest pain. He underwent coronary angiography which revealed distal left main coronary artery disease as well as severe coronary disease on the right consistent with triple vessel coronary artery disease. Surgical revascularization was recommended and the patient was in agreement. All risks, benefits and alternatives were discussed including PCI and his STS risk of morbidity and mortality. Operative Findings: Left internal thoracic artery good conduit 1.5mm. Diagonal artery 1.5mm decent target. Left anterior descending artery decent target and 2mm. Saphenous vein thick, 1.75mm and a decent conduit. Posterior descending artery was 1.5mm and a good target. Radial artery was 2mm and a good conduit. The ramus was a decent target intra- muscularly. Description of Procedure: The patient underwent right radial arterial line, central line and swan trudy catheter placement in the pre-operative suite by anesthesia. He was brought back to the operating room and placed in the supine position. General endotracheal anesthesia was induced and the patient was prepped and draped from the chin to the ankles in the usual sterile fashion. A time-out was performed and antibiotics were given. I made a midline incision in the chest and carried it down to the sternum. A median sternotomy was performed and hemostasis on the bone was achieved using electrocaurtery. The left pleura was incised and the left internal thoracic artery was harvested in a skeletonized fashion. Simultaneously, two assistants endoscopically harvested the left radial and bilateral greater saphenous vein. The patient was systemically heparinized and the LEXII was transected and placed in a papaverine jacuzzi. A left side chest tube was placed. The pericardium was opened in a T fashion and a pericardial cradle was created. The right pleura was opened widely. Stay sutures were placed. A #35mm AtriClip was placed on the left atrial appendage effectively ligating it. The targets were examined and measured to length. The conduits were then prepared. A pericardial window was then created for the LEXII and the diagonal and LAD was brought into the field and stabilized using the octopus stabilizer. Both was dissected out and the LEXII was prepared distally and another arteriorotomy was made several cm from the distal end. Once ACT >250, an arteriotomy was made in the diagonal artery and a 1.5mm shunt was placed. We then began performing an side to side anastomosis of the LEXII to the diagonal using a 8-0 prolene. We then performed an end to side anastomosis of the LEXII to the LAD using a running 8-0 prolene. The diagonal and LAD were 1.5 and 2mm respectively and decent targets. Next we exposed the inferior wall and placed the stabilizer on the posterior descending artery distally. An arteriorotomy was performed and it was a decent target meausring 1.5mm. An end to side anastomosis was performed between the saphenous vein and posterior descending artery in a running fashion using a 7-0 prolene. The proximal was fastened to the ascending aorta using a heartstring device and running 5-0 prolene. Next the lateral wall was exposed and the ramus intermedius artery was brought into the field and stabilized using the octopus stabilizer. An arteriotomy was made and the ramus was a decent target in the muscle and 1.5mm here. An end to side anastomosis was performed between the radial artery to the ramus branch using a running 7-0 prolene. The proximal was also fastened to the ascending aorta using a heartstring device and a running 5-0 prolene in an end to side fashion. All anastomosis were checked for bleeding and appeared hemostatic. Protamine was given to reverse heparin. A 36F chest tube was placed in the mediastinum and a 19F katherine was placed in the right pleura. Hemostasis was excellent. The sternum was closed with cables and 1 steel wire. The subcutaneous tissues of the arm, le g and chest were closed in layers. Skin glue was applied. The patient tolerated the procedure well without any obvious complications and was transferred to the ICU without the need for ionotropes or vasopressors. Completion ENEDELIA revealed a good EF with no wall motion or valvular abnormalities
[2022-06-18 13:19] LABS: Glucose,Whole Blood 124 mg/dL (70-110)
[2022-06-18 13:27] LABS: Basophils % (A) 0 %; Eosinophils # (A) 0.1 k/uL (0-0.7); Eosinophils % (A) 1 %; HCT 30.3 % (39.0-53.0); Lymphocytes % (A) 18 %; MCH 31.5 pg (25.0-35.0); MCHC 32.9 g/dL (31.0-37.0); MCV 95.9 fL (80.0-100.0); Mean Platelet Volume 9.3; Monocytes # (A) 0.8 k/uL (0-1.0); Monocytes % (A) 7 %; Neutrophils % (A) 73 %; Platelet Count 141 k/uL (150-450); RBC 3.15 m/uL (4.30-5.90); RDW 13.1 % (11.5-15.5)
[2022-06-18 13:38] LABS: HGB 9.9 gm/dL (13.0-17.5)
[2022-06-18 13:41] LABS: INR 1.2 (<1.2); Prothrombin Time 12.4 sec (9.0-12.0)
[2022-06-18 13:42] LABS: Partial Thromboplastin Time 27.1 sec (22.0-30.0)
[2022-06-18] MEDS: EZETIMIBE 10 MG TAB PO SCH (13:49)
[2022-06-18] MEDS: LACTATED RINGERS 1,000 ML IV SCH (13:51)
[2022-06-18] MEDS: INSULIN REGULAR 100 UNIT in SODIUM CHLORIDE 0.9% 100 ML IV SCH (14:00)
[2022-06-18 14:01] LABS: Ionized Calcium 4.8 mg/dL (4.5-5.3)
[2022-06-18] MEDS: ALBUMIN HUMAN 5% 250 ML in EMPTY BAG 1 BAG IVPB PRN (14:01)
[2022-06-18 14:09] LABS: ALT 24 U/L (4-49); AST 26 U/L (17-59); African American GFR (CKD) >90 (>60 ml/min/1.73 sqM); Albumin 2.9 g/dL (3.5-5.0); Alkaline Phosphatase 35 U/L (38-126); Anion Gap 6 mmol/L; Blood Urea Nitrogen 18 mg/dL (9-20); Calcium 7.7 mg/dL (8.4-10.2); Carbon Dioxide 22 mmol/L (22-30); Chloride 109 mmol/L (98-107); Glucose 114 mg/dL (74-99); Magnesium 1.8 mg/dL (1.6-2.3); Non-African American GFR(CKD) >90 (>60 ml/min/1.73 sqM); Sodium 137 mmol/L (137-145); Total Bilirubin 0.3 mg/dL (0.2-1.3); Total Protein 4.5 g/dL (6.3-8.2)
[2022-06-18 14:09] LABS: Glucose,Whole Blood 134 mg/dL (70-110)
--- NOTE | 2022-06-18 14:09 | XR ---
EXAMINATION TYPE: XR chest 1V portable DATE OF EXAM: 06/18/2022 1:53 PM COMPARISON: Chest radiographs from 06/14/2022, CT chest 06/15/2022. TECHNIQUE: XR chest 1V portable Frontal view of the chest. CLINICAL INDICATION:Male, 67 years old with history of Post Operative Cardiac Surgery; FINDINGS: Lungs/Pleura: There is no evidence of pleural effusion, focal consolidation, or pneumothorax. Bilater al midlung linear atelectasis. Pulmonary vascularity: Unremarkable. Heart/mediastinum: Cardiomediastinal silhouette is unremarkable. Postoperative changes are present i n the mediastinum. Left atrial appendage occlusion device is present. Musculoskeletal: No acute osseous pathology. Midline sternotomy wires are noted and stable. Lines/Tubes: Endotracheal tube with distal tip 3 cm above the elaine Nasogastric tube with its distal tip and side-port projecting under the diaphragm. Left thoracotomy tube is present directed towards the apex without evidence of pneumothorax. Right IJ [place] catheter with distal tip in the region of the main pulmonary artery. Mediastinal train is directed towards the upper mediastinum. IMPRESSION: Lines and tubes as described above. Bilateral midlung atelectasis with no sizable pneumothorax status post left chest tube placement.
--- NOTE | 2022-06-18 14:31 | P.PN ---
Subjective Progress Note Date: 06/18/22 Principal diagnosis: Status post off-pump CABG 4, left internal thoracic artery to diagonal to left internal mammary artery saphenous vein to posterior descending artery left radi al artery from aorta to ramus intermedius postoperative day #0 06/16/2022, the patient is doing well. No chest pain. No shortness of breath. Last bronchus spastic and wheezy compared to yesterday. The patient underwent spirometry yesterday and FEV1 is on that of 73% of predicted. He is currently on bronchodilators. He is also on IV Solu-Medrol. He was started on Levemir insulin 10 units along with that slight scale insulin coverage. No nausea. No chest pain. No significant shortness of breath. No cardiac arrhythmias. He remains on IV heparin. 06/17/2022, no complaints and the patient is doing well. Overnight, he did have some limited chest pain which subsequently subsided and the patient remains on IV heparin. He is less bronchospastic and wheezy. I will also take him off the IV Solu-Medrol and put him on DuoNeb nebulized treatments around the clock. He is using incentive spirometer. He was given Levemir insulin for high blood sugar control due to steroid intake. This can be also discontinued. The patient is ready for surgery to be done on 06/18/2022. This will include coronary artery bypass surgery. Patient was reevaluated today on 06/18/2022, patient is now status post off-pump CABG 4 vessel. He is on mechanical ventilation, he is on assist control rate of 14, volume 500 FiO2 100% and PEEP of 5. ABG showed a pO2 of over 400 with normal acid base status and normal pCO2, and his FiO2 was cut down to 40%. Patient is on nitroglycerin drip at 5 mcg/m, is also on insulin drip at 1 unit per hour, propofol 20 mcg/kg/m. He is not requiring any inotropes or pressors. His cardiac output is 4.1 and cardiac index is 2.1. Chest x-ray showed no evidence of acute process, lines and catheters seem to be all in the proper position. O Objective - Vital Signs Vital signs: Vital Signs Temp 97.0 F L 06/18/22 06:36 Pulse 71 06/18/22 06:36 Resp 16 06/18/22 06:36 BP 146/80 06/18/22 06:36 Pulse Ox 98 06/18/22 06:36 FiO2 40 06/18/22 13:45 Intake & Output 06/17/22 06/18/22 06/18/22 18:59 06:59 18:59 Intake Total 726 127.81 5.267 Output Total 900 Balance 726 127.81 -894.733 Intake: IV 4 Intake, IV Titration 250 127.81 1.267 Amount Clevidipine Butyrate 25 1.267 mg In Empty Bag 1 bag @ 1 MG/HR 2 mls/hr IV .Q24H [facility] Rx#:[id number] Heparin Sod,Pork in 0.45% 250 127.81 NaCl 25,000 unit In 0.45 % NaCl 1 250ml.bag @ 11. 603 UNITS/KG/HR 10 mls/hr IV .Q24H [facility] Rx#: [id number] Oral 476 Output: Urine 300 Estimated Blood Loss 600 Other: Voiding Method Toilet Toilet Urinal Urinal # Voids 3 3 - Exam Physical Exam: Revealed a 67-year-old white male in no distress, sedated, intubated, mechanically ventilated. Head: Atraumatic, normocephalic. Endotracheal tube and orogastric tube are intact. HEENT:[Neck is supple.] [No neck masses.] [No thyromegaly.] [No JVD.] Chest: Symmetrical chest expansion, slightly diminished breath sounds at the bases no rhonchi and no wheezes Cardiac Exam: [Normal S1 and S2, no S3 gallop, 2/6 systolic murmur thought the precordium. Positive pericardial rub. Abdomen: [Soft, nontender, no megaly, no rebound, no guarding, normal bowel sounds.] Extremities: [No clubbing, no edema, no cyanosis.] Neurological Exam: Cannot assess, patient is intubated and mechanically ventilated. Sedated. Psychiatric: Could not assess. Skin: No rashes. - Labs CBC & Chem 7: 06/18/22 12:44 06/18/22 12:44 Labs: Abnormal Lab Results - Last 24 Hours (Table) 06/17/22 06/17/22 06/17/22 Range/Units 08:11 16:39 20:10 WBC (3.8-10.6) k/uL RBC (4.30-5.90) m/uL Hgb (13.0-17.5) gm/dL Hct (39.0-53.0) % Plt Count (150-450) k/uL Neutrophils # (1.3-7.7) k/uL PT (9.0-12.0) sec INR (<1.2) ABG pCO2 (35-45) mmHg ABG pO2 (83-108) mmHg ABG Total CO2 (19-24) mmol/L ABG O2 Saturation (94-97) % ABG Hematocrit (34.0-46.0) % ABG Ionized Calcium (4.5-5.3) mg/dL ABG Glucose (75-99) mg/dL ABG Lactic Acid (0.5-1.6) mmol/L Hemoglobin (13.0-17.5) gm/dL Chloride (98-107) mmol/L Glucose (74-99) mg/dL POC Glucose (mg/dL) 233 H 174 H (70-110) mg/dL Calcium (8.4-10.2) mg/dL Alkaline Phosphatase (38-126) U/L Total Protein (6.3-8.2) g/dL Albumin (3.5-5.0) g/dL Arterial Blood Glucose (75-99) mg/dL Crossmatch See Detail 06/18/22 06/18/22 06/18/22 Range/Units 06:22 08:42 10:28 WBC (3.8-10.6) k/uL RBC (4.30-5.90) m/uL Hgb (13.0-17.5) gm/dL Hct (39.0-53.0) % Plt Count (150-450) k/uL Neutrophils # (1.3-7.7) k/uL PT (9.0-12.0) sec INR (<1.2) ABG pCO2 34 L (35-45) mmHg ABG pO2 340 H 151 H (83-108) mmHg ABG Total CO2 25 H (19-24) mmol/L ABG O2 Saturation 100.0 H 98.9 H (94-97) % ABG Hematocrit (34.0-46.0) % ABG Ionized Calcium (4.5-5.3) mg/dL ABG Glucose 137 H 171 H (75-99) mg/dL ABG Lactic Acid 1.9 H 1.7 H (0.5-1.6) mmol/L Hemoglobin 11.6 L 11.3 L (13.0-17.5) gm/dL Chloride (98-107) mmol/L Glucose (74-99) mg/dL POC Glucose (mg/dL) 146 H (70-110) mg/dL Calcium (8.4-10.2) mg/dL Alkaline Phosphatase (38-126) U/L Total Protein (6.3-8.2) g/dL Albumin (3.5-5.0) g/dL Arterial Blood Glucose 137 H 171 H (75-99) mg/dL Crossmatch 06/18/22 06/18/22 06/18/22 Range/Units 11:29 12:33 12:44 WBC 11.0 H (3.8-10.6) k/uL RBC 3.15 L (4.30-5.90) m/uL Hgb 9.9 L D (13.0-17.5) gm/dL Hct 30.3 L (39.0-53.0) % Plt Count 141 L (150-450) k/uL Neutrophils # 8.0 H (1.3-7.7) k/uL PT (9.0-12.0) sec INR (<1.2) ABG pCO2 33 L (35-45) mmHg ABG pO2 165 H (83-108) mmHg ABG Total CO2 (19-24) mmol/L ABG O2 Saturation 99.3 H 97.2 H (94-97) % ABG Hematocrit 32 L 31 L (34.0-46.0) % ABG Ionized Calcium 4.4 L (4.5-5.3) mg/dL ABG Glucose 151 H 126 H (75-99) mg/dL ABG Lactic Acid 2.4 H* 2.4 H* (0.5-1.6) mmol/L Hemoglobin 10.3 L 10.2 L (13.0-17.5) gm/dL Chloride (98-107) mmol/L Glucose (74-99) mg/dL POC Glucose (mg/dL) (70-110) mg/dL Calcium (8.4-10.2) mg/dL Alkaline Phosphatase (38-126) U/L Total Protein (6.3-8.2) g/dL Albumin (3.5-5.0) g/dL Arterial Blood Glucose 151 H 126 H (75-99) mg/dL Crossmatch 06/18/22 06/18/22 06/18/22 Range/Units 12:44 12:44 13:16 WBC (3.8-10.6) k/uL RBC (4.30-5.90) m/uL Hgb (13.0-17.5) gm/dL Hct (39.0-53.0) % Plt Count (150-450) k/uL Neutrophils # (1.3-7.7) k/uL PT 12.4 H (9.0-12.0) sec INR 1.2 H (<1.2) ABG pCO2 (35-45) mmHg ABG pO2 (83-108) mmHg ABG Total CO2 (19-24) mmol/L ABG O2 Saturation (94-97) % ABG Hematocrit (34.0-46.0) % ABG Ionized Calcium (4.5-5.3) mg/dL ABG Glucose (75-99) mg/dL ABG Lactic Acid (0.5-1.6) mmol/L Hemoglobin (13.0-17.5) gm/dL Chloride 109 H (98-107) mmol/L Glucose 114 H (74-99) mg/dL POC Glucose (mg/dL) 124 H (70-110) mg/dL Calcium 7.7 L (8.4-10.2) mg/dL Alkaline Phosphatase 35 L (38-126) U/L Total Protein 4.5 L (6.3-8.2) g/dL Albumin 2.9 L (3.5-5.0) g/dL Arterial Blood Glucose (75-99) mg/dL Crossmatch 06/18/22 Range/Units 14:08 WBC (3.8-10.6) k/uL RBC (4.30-5.90) m/uL Hgb (13.0-17.5) gm/dL Hct (39.0-53.0) % Plt Count (150-450) k/uL Neutrophils # (1.3-7.7) k/uL PT (9.0-12.0) sec INR (<1.2) ABG pCO2 (35-45) mmHg ABG pO2 (83-108) mmHg ABG Total CO2 (19-24) mmol/L ABG O2 Saturation (94-97) % ABG Hematocrit (34.0-46.0) % ABG Ionized Calcium (4.5-5.3) mg/dL ABG Glucose (75-99) mg/dL ABG Lactic Acid (0.5-1.6) mmol/L Hemoglobin (13.0-17.5) gm/dL Chloride (98-107) mmol/L Glucose (74-99) mg/dL POC Glucose (mg/dL) 134 H (70-110) mg/dL Calcium (8.4-10.2) mg/dL Alkaline Phosphatase (38-126) U/L Total Protein (6.3-8.2) g/dL Albumin (3.5-5.0) g/dL Arterial Blood Glucose (75-99) mg/dL Crossmatch Assessment and Plan Assessment: Impression: Status post off-pump CABG 4 vessel, postoperative day #0. Symptomatic multivessel coronary artery disease Acute non-ST segment elevation myocardial infarction Mild ischemic cardiomyopathy and LV dysfunction with ejection fraction of 45-50% Underlying COPD, FEV1 is 70% of the predicted value. Type 2 diabetes. Benign essential hypertension. Dyslipidemia. History of smoking. Recommendation: Continue ventilatory support, will likely wean and extubate in the next few hours. Continue bronchodilators Hemodynamic support if necessary. Continue insulin GI and DVT prophylaxis. Continue cardiac meds Possible weaning and extubation in the next few hours. We will continue to follow Critical care time is over 30 minutes Time with Patient: Greater than 30
[2022-06-18 15:10] LABS: Glucose,Whole Blood 154 mg/dL (70-110)
[2022-06-18] MEDS ORDERED: IPRATROPIUM-ALBUTEROL 3 ML NEB INHALATION SCH (16:00)
[2022-06-18 16:06] LABS: Glucose,Whole Blood 193 mg/dL (70-110)
[2022-06-18 16:06] LABS: ABG Base Excess -2.6 mmol/L; ABG HCO3 24 mmol/L (21-25); ABG Oxygen Saturation 93.7 % (94-97); ABG PCO2 47 mmHg (35-45); ABG PH 7.31 (7.35-7.45); ABG PO2 72 mmHg (83-108); ABG TCO2 25 mmol/L (19-24); Allen Test Performed? Yes
[2022-06-18] MEDS: HEPARIN SODIUM,PORCINE/PF 5,000 UNIT/0.5 ML SYRINGE SQ SCH (16:37)
--- NOTE | 2022-06-18 16:43 | P.PN ---
Subjective Progress Note Date: 06/18/22 Patient is doing well s/p CABG. Patient is anxious to be extubated, undergoing SBT with plans to extubate today. Gen: awake, alert HEENT: normocephalic, atraumatic, good hearing acuity, moist mucous membranes Resp: good air exchange, breathing comfortably with no accessory muscle use CVS: good distal perfusion x 4, GI: soft, NTTP, ND : no SPT, no CVAT, caal catheter not present MSK: no pitting edema, no clubbing Neuro: non-focal, moving all extremities Psych: cooperative, euthymic mood Assessment/plan: Unstable angina Multivessel coronary artery disease -Daily EKGs -Cardiology consult -Echocardiogram -Resume aspirin and statin -CT surgery consult -strict BS control to encourage healing post-op Hypomagnesemia -Replete as needed Suspect underlying COPD -DuoNeb as needed Chronic issues Hypertension Diabetes Hyperlipidemia Tobacco abuse -Resume home meds when available -Hold oral hypoglycemic agents and start Sliding-scale insulin and long-acting insulin -Nicotine patch, patient counseled on smoking cessation CODE STATUS:full code DVT prophylaxis: Heparin drip Objective - Vital Signs Vital signs: Vital Signs Temp 97.0 F L 06/18/22 06:36 Pulse 77 06/18/22 16:00 Resp 17 06/18/22 16:00 BP 132/65 06/18/22 13:30 Pulse Ox 90 L 06/18/22 16:23 FiO2 40 06/18/22 15:28 Intake & Output 06/17/22 06/18/22 06/18/22 18:59 06:59 18:59 Intake Total 726 127.81 170.626 Output Total 1673 Balance 726 127.81 -1502.374 Intake: IV 145.0 CO/CI 40 Diltiazem 125 mg In 10 Sodium Chloride 0.9% 100 ml @ 5 MG/HR 5 mls/hr IV .Q24H [facility] Rx#:[id number] Lactated Ringers 1,000 ml 70 @ 50 mls/hr IV .Q20H [facility] Rx#:[id number] Nitroglycerin-D5w Pmx 50 3.0 mg In Dextrose/Water 1 250ml.bag @ 5 MCG/MIN 1.5 mls/hr IV .Q24H [facility] Rx#: [id number] PRESSURE BAG 18 Intake, IV Titration 250 127.81 25.626 Amount Clevidipine Butyrate 25 1.267 mg In Empty Bag 1 bag @ 1 MG/HR 2 mls/hr IV .Q24H [facility] Rx#:[id number] Heparin Sod,Pork in 0.45% 250 127.81 NaCl 25,000 unit In 0.45 % NaCl 1 250ml.bag @ 11. 603 UNITS/KG/HR 10 mls/hr IV .Q24H [facility] Rx#: [id number] Insulin Regular 100 unit 2.534 In Sodium Chloride 0.9% 100 ml @ Per Protocol IV .Q0M [facility] Rx#:[id number] propofoL 1,000 mg In 21.825 Empty Bag 1 bag @ Titrate IV .Q0M [facility] Rx#: [id number] Oral 476 Output: Chest Tube Drainage 161 Chest Tube Mediastinal 59 Right/Left 102 Urine 912 Estimated Blood Loss 600 Other: Voiding Method Toilet Toilet Indwelling Catheter Urinal Urinal # Voids 3 3 ABP, PAP, CO, CI - Last Documented Arterial Blood Pressure 116/62 Pulmonary Artery Pressure 38/24 Cardiac Output 7.2 Cardiac Index 3.6 - Labs CBC & Chem 7: 06/18/22 12:44 06/18/22 12:44 Labs: Abnormal Lab Results - Last 24 Hours (Table) 06/17/22 06/17/22 06/18/22 Range/Units 08:11 20:10 06:22 WBC (3.8-10.6) k/uL RBC (4.30-5.90) m/uL Hgb (13.0-17.5) gm/dL Hct (39.0-53.0) % Plt Count (150-450) k/uL Neutrophils # (1.3-7.7) k/uL PT (9.0-12.0) sec INR (<1.2) ABG pH (7.35-7.45) ABG pCO2 (35-45) mmHg ABG pO2 (83-108) mmHg ABG Total CO2 (19-24) mmol/L ABG O2 Saturation (94-97) % ABG Hematocrit (34.0-46.0) % ABG Ionized Calcium (4.5-5.3) mg/dL ABG Glucose (75-99) mg/dL ABG Lactic Acid (0.5-1.6) mmol/L Hemoglobin (13.0-17.5) gm/dL Chloride (98-107) mmol/L Glucose (74-99) mg/dL POC Glucose (mg/dL) 174 H 146 H (70-110) mg/dL Calcium (8.4-10.2) mg/dL Alkaline Phosphatase (38-126) U/L Total Protein (6.3-8.2) g/dL Albumin (3.5-5.0) g/dL Arterial Blood Glucose (75-99) mg/dL Crossmatch See Detail 06/18/22 06/18/22 06/18/22 Range/Units 08:42 10:28 11:29 WBC (3.8-10.6) k/uL RBC (4.30-5.90) m/uL Hgb (13.0-17.5) gm/dL Hct (39.0-53.0) % Plt Count (150-450) k/uL Neutrophils # (1.3-7.7) k/uL PT (9.0-12.0) sec INR (<1.2) ABG pH (7.35-7.45) ABG pCO2 34 L 33 L (35-45) mmHg ABG pO2 340 H 151 H 165 H (83-108) mmHg ABG Total CO2 25 H (19-24) mmol/L ABG O2 Saturation 100.0 H 98.9 H 99.3 H (94-97) % ABG Hematocrit 32 L (34.0-46.0) % ABG Ionized Calcium 4.4 L (4.5-5.3) mg/dL ABG Glucose 137 H 171 H 151 H (75-99) mg/dL ABG Lactic Acid 1.9 H 1.7 H 2.4 H* (0.5-1.6) mmol/L Hemoglobin 11.6 L 11.3 L 10.3 L (13.0-17.5) gm/dL Chloride (98-107) mmol/L Glucose (74-99) mg/dL POC Glucose (mg/dL) (70-110) mg/dL Calcium (8.4-10.2) mg/dL Alkaline Phosphatase (38-126) U/L Total Protein (6.3-8.2) g/dL Albumin (3.5-5.0) g/dL Arterial Blood Glucose 137 H 171 H 151 H (75-99) mg/dL Crossmatch 06/18/22 06/18/22 06/18/22 Range/Units 12:33 12:44 12:44 WBC 11.0 H (3.8-10.6) k/uL RBC 3.15 L (4.30-5.90) m/uL Hgb 9.9 L D (13.0-17.5) gm/dL Hct 30.3 L (39.0-53.0) % Plt Count 141 L (150-450) k/uL Neutrophils # 8.0 H (1.3-7.7) k/uL PT 12.4 H (9.0-12.0) sec INR 1.2 H (<1.2) ABG pH (7.35-7.45) ABG pCO2 (35-45) mmHg ABG pO2 (83-108) mmHg ABG Total CO2 (19-24) mmol/L ABG O2 Saturation 97.2 H (94-97) % ABG Hematocrit 31 L (34.0-46.0) % ABG Ionized Calcium (4.5-5.3) mg/dL ABG Glucose 126 H (75-99) mg/dL ABG Lactic Acid 2.4 H* (0.5-1.6) mmol/L Hemoglobin 10.2 L (13.0-17.5) gm/dL Chloride (98-107) mmol/L Glucose (74-99) mg/dL POC Glucose (mg/dL) (70-110) mg/dL Calcium (8.4-10.2) mg/dL Alkaline Phosphatase (38-126) U/L Total Protein (6.3-8.2) g/dL Albumin (3.5-5.0) g/dL Arterial Blood Glucose 126 H (75-99) mg/dL Crossmatch 06/18/22 06/18/22 06/18/22 Range/Units 12:44 13:16 14:08 WBC (3.8-10.6) k/uL RBC (4.30-5.90) m/uL Hgb (13.0-17.5) gm/dL Hct (39.0-53.0) % Plt Count (150-450) k/uL Neutrophils # (1.3-7.7) k/uL PT (9.0-12.0) sec INR (<1.2) ABG pH (7.35-7.45) ABG pCO2 (35-45) mmHg ABG pO2 (83-108) mmHg ABG Total CO2 (19-24) mmol/L ABG O2 Saturation (94-97) % ABG Hematocrit (34.0-46.0) % ABG Ionized Calcium (4.5-5.3) mg/dL ABG Glucose (75-99) mg/dL ABG Lactic Acid (0.5-1.6) mmol/L Hemoglobin (13.0-17.5) gm/dL Chloride 109 H (98-107) mmol/L Glucose 114 H (74-99) mg/dL POC Glucose (mg/dL) 124 H 134 H (70-110) mg/dL Calcium 7.7 L (8.4-10.2) mg/dL Alkaline Phosphatase 35 L (38-126) U/L Total Protein 4.5 L (6.3-8.2) g/dL Albumin 2.9 L (3.5-5.0) g/dL Arterial Blood Glucose (75-99) mg/dL Crossmatch 06/18/22 06/18/22 06/18/22 Range/Units 15:08 16:04 16:05 WBC (3.8-10.6) k/uL RBC (4.30-5.90) m/uL Hgb (13.0-17.5) gm/dL Hct (39.0-53.0) % Plt Count (150-450) k/uL Neutrophils # (1.3-7.7) k/uL PT (9.0-12.0) sec INR (<1.2) ABG pH 7.31 L (7.35-7.45) ABG pCO2 47 H (35-45) mmHg ABG pO2 72 L (83-108) mmHg ABG Total CO2 25 H (19-24) mmol/L ABG O2 Saturation 93.7 L (94-97) % ABG Hematocrit (34.0-46.0) % ABG Ionized Calcium (4.5-5.3) mg/dL ABG Glucose (75-99) mg/dL ABG Lactic Acid (0.5-1.6) mmol/L Hemoglobin (13.0-17.5) gm/dL Chloride (98-107) mmol/L Glucose (74-99) mg/dL POC Glucose (mg/dL) 154 H 193 H (70-110) mg/dL Calcium (8.4-10.2) mg/dL Alkaline Phosphatase (38-126) U/L Total Protein (6.3-8.2) g/dL Albumin (3.5-5.0) g/dL Arterial Blood Glucose (75-99) mg/dL Crossmatch
[2022-06-18 17:14] LABS: Glucose,Whole Blood 158 mg/dL (70-110)
[2022-06-18] MEDS: ACETAMINOPHEN IV (For NPO) 1,000 MG in EMPTY BAG 1 BAG IVPB SCH (17:22)
[2022-06-18] MEDS: KETOROLAC 15 MG/ML 1 ML VIAL IVP SCH (17:22)
[2022-06-18 17:27] LABS: Basophils # (A) 0.1 k/uL (0-0.2); Basophils % (A) 1 %; Eosinophils # (A) 0.1 k/uL (0-0.7); Eosinophils % (A) 1 %; HCT 33.2 % (39.0-53.0); HGB 11.1 gm/dL (13.0-17.5); Lymphocytes # (A) 2.6 k/uL (1.0-4.8); Lymphocytes % (A) 16 %; MCH 31.8 pg (25.0-35.0); MCHC 33.3 g/dL (31.0-37.0); MCV 95.3 fL (80.0-100.0); Mean Platelet Volume 8.3; Monocytes # (A) 1.4 k/uL (0-1.0); Monocytes % (A) 8 %; Neutrophils # (A) 11.9 k/uL (1.3-7.7); Neutrophils % (A) 73 %; Platelet Count 249 k/uL (150-450); RBC 3.49 m/uL (4.30-5.90); RDW 13.2 % (11.5-15.5); WBC 16.2 k/uL (3.8-10.6)
[2022-06-18 18:12] LABS: Glucose,Whole Blood 167 mg/dL (70-110)
[2022-06-18 18:59] LABS: Glucose,Whole Blood 152 mg/dL (70-110)
[2022-06-18 20:06] LABS: Glucose,Whole Blood 127 mg/dL (70-110)
[2022-06-18 20:53] LABS: Glucose,Whole Blood 114 mg/dL (70-110)
--- NOTE | 2022-06-18 21:20 | P.ANPRN ---
Procedure Note - Anesthesia - Invasive Line Right Arterial Line Time Out Performed: Yes (2030) Date of Procedure: 06/18/22 Time of Procedure: 20:35 (ICU) Preparation: Sterile Prep, Sterile Dressing Arterial Line Location: Radial Ultrasound Used: Yes Purpose - Visualization and Identification of Vasculature: Yes Needle Guage: 20G- 2.5 inch arrow catheter , one attempt Image Stored and Saved: Yes Narrative: Central line placement per sterile protocol utilized.
[2022-06-18 21:22] LABS: African American GFR (CKD) >90 (>60 ml/min/1.73 sqM); Anion Gap 10 mmol/L; Basophils % (A) 0 %; Blood Urea Nitrogen 17 mg/dL (9-20); Calcium 8.1 mg/dL (8.4-10.2); Carbon Dioxide 22 mmol/L (22-30); Chloride 104 mmol/L (98-107); Eosinophils % (A) 0 %; Glucose 106 mg/dL (74-99); HCT 33.2 % (39.0-53.0); HGB 11.1 gm/dL (13.0-17.5); Lymphocytes % (A) 11 %; MCH 31.5 pg (25.0-35.0); MCHC 33.6 g/dL (31.0-37.0); MCV 93.9 fL (80.0-100.0); Magnesium 1.5 mg/dL (1.6-2.3); Monocytes # (A) 0.8 k/uL (0-1.0); Monocytes % (A) 9 %; Neutrophils # (A) 7.3 k/uL (1.3-7.7); Neutrophils % (A) 79 %; Non-African American GFR(CKD) >90 (>60 ml/min/1.73 sqM); Platelet Count 192 k/uL (150-450); Potassium 4.4 mmol/L (3.5-5.1); RBC 3.53 m/uL (4.30-5.90); RDW 13.1 % (11.5-15.5); Sodium 136 mmol/L (137-145); WBC 9.2 k/uL (3.8-10.6)
[2022-06-18] MEDS: MAGNESIUM SULFATE-D5W PMX 1 GM in DEXTROSE/WATER 1 100ML.BAG IVPB SCH ×2 (21:47→22:43)
[2022-06-18 21:59] LABS: Glucose,Whole Blood 140 mg/dL (70-110)
[2022-06-18 23:13] LABS: Glucose,Whole Blood 136 mg/dL (70-110)
[2022-06-18 23:56] LABS: Glucose,Whole Blood 132 mg/dL (70-110)
[2022-06-19] MEDS: ACETAMINOPHEN IV (For NPO) 1,000 MG in EMPTY BAG 1 BAG IVPB SCH (00:01)
[2022-06-19] MEDS: HEPARIN SODIUM,PORCINE/PF 5,000 UNIT/0.5 ML SYRINGE SQ SCH ×4 (00:01→23:54)
[2022-06-19] MEDS: KETOROLAC 15 MG/ML 1 ML VIAL IVP SCH ×5 (00:02→23:54)
[2022-06-19 01:01] LABS: Glucose,Whole Blood 113 mg/dL (70-110)
[2022-06-19 01:58] LABS: Glucose,Whole Blood 117 mg/dL (70-110)
[2022-06-19 02:56] LABS: Glucose,Whole Blood 136 mg/dL (70-110)
[2022-06-19 03:52] LABS: Glucose,Whole Blood 137 mg/dL (70-110)
[2022-06-19 04:12] LABS: Basophils % (A) 0 %; Eosinophils % (A) 0 %; HCT 33.2 % (39.0-53.0); Lymphocytes # (A) 1.3 k/uL (1.0-4.8); Lymphocytes % (A) 19 %; MCH 31.4 pg (25.0-35.0); MCHC 33.2 g/dL (31.0-37.0); MCV 94.8 fL (80.0-100.0); Mean Platelet Volume 8.1; Monocytes # (A) 0.6 k/uL (0-1.0); Monocytes % (A) 9 %; Neutrophils # (A) 4.8 k/uL (1.3-7.7); Neutrophils % (A) 70 %; Platelet Count 161 k/uL (150-450); WBC 6.8 k/uL (3.8-10.6)
[2022-06-19 04:54] LABS: Ionized Calcium 4.6 mg/dL (4.5-5.3)
[2022-06-19 04:58] LABS: Glucose,Whole Blood 135 mg/dL (70-110)
[2022-06-19] MEDS: HYDROcodone/APAP 5-325MG 1 EACH TAB PO PRN ×4 (05:00→21:12)
[2022-06-19 05:04] LABS: ALT 25 U/L (4-49); AST 30 U/L (17-59); African American GFR (CKD) >90 (>60 ml/min/1.73 sqM); Albumin 3.2 g/dL (3.5-5.0); Alkaline Phosphatase 48 U/L (38-126); Anion Gap 8 mmol/L; Blood Urea Nitrogen 14 mg/dL (9-20); Calcium 7.8 mg/dL (8.4-10.2); Carbon Dioxide 23 mmol/L (22-30); Chloride 102 mmol/L (98-107); Glucose 127 mg/dL (74-99); Magnesium 1.8 mg/dL (1.6-2.3); Non-African American GFR(CKD) >90 (>60 ml/min/1.73 sqM); Potassium 4.3 mmol/L (3.5-5.1); Sodium 133 mmol/L (137-145); Total Bilirubin 0.7 mg/dL (0.2-1.3); Total Protein 4.9 g/dL (6.3-8.2)
[2022-06-19] MEDS: ALBUMIN HUMAN 5% 250 ML in EMPTY BAG 1 BAG IVPB PRN ×2 (05:47→06:06)
[2022-06-19] MEDS: MAGNESIUM SULFATE-D5W PMX 1 GM in DEXTROSE/WATER 1 100ML.BAG IVPB SCH ×2 (05:52→06:54)
[2022-06-19 05:58] LABS: Glucose,Whole Blood 140 mg/dL (70-110)
[2022-06-19] MEDS ORDERED: ACETAMINOPHEN TAB 325 MG TAB PO PRN (06:46)
[2022-06-19 06:57] LABS: Glucose,Whole Blood 157 mg/dL (70-110)
--- NOTE | 2022-06-19 07:30 | US ---
EXAMINATION TYPE: US vein mapping BIL DATE OF EXAM: 06/15/2022 1:00 PM COMPARISON: NONE CLINICAL HISTORY: preop cardiac surgery. SIDE PERFORMED: Bilateral TECHNIQUE: Lower extremity saphenous vein is examined and measured utilizing real time linear array sonography. Patient History: Smoker: Yes Heart Disease: Yes Vascular Surgery: Yes Discoloration: No Hypertension: Yes Paralysis: No Varicosities: No Edema: No DUPLEX FINDINGS: Greater Saphenous: Color flow seen Measurements in mm: Right Greater Saphenous: Groin: 4.7 x 4.4 mm High Thigh: 2.8 x 2.6 mm Mid Thigh: 2.3 x 2.7 mm Above Knee: 2.9 x 2.3 mm Knee: 2.4 x 1.4 mm Below Knee: 2.2 x 1.4 mm Mid Calf: too small to visualized At Ankle: 2.6 x 1.5 mm Left Greater Saphenous: Groin: 4.3 x 3.7 mm High Thigh: 2.5 x 2.2 mm Mid Thigh: 1.9 x 2.4 mm Above Knee: 2.7 x 1.9 mm Knee: 2.1 x 1.6 mm Below Knee: 1.5 x 1.2 mm Mid Calf: Too small to visualized At Ankle: 1.8 x 1.4 mm IMPRESSION: 1. Bilateral GSV measurements listed above. 2. Performing surgeon to determine viability as conduit.
--- NOTE | 2022-06-19 07:31 | US ---
EXAMINATION TYPE: Pre-Operative Non-Invasive Evaluation of the hand for Potential Radial Artery Zeferino kelly, Measurements only DATE OF EXAM: 06/15/2022 12:59 PM CLINICAL HISTORY: measurements only. Preopen cardiac surgery. SIDE PERFORMED: Left TECHNIQUE: Radial artery is measured utilizing real time linear array sonography. Dominant hand: Right Duplex Findings: Radial Artery: Color flow seen Measurements in mm, transverse view: Left Radial: Proximal: 3.7 x 3.6 mm Mid: 2.9 x 2.6 mm Distal: 3.0 x 2.9 mm IMPRESSION: 1. Left radial artery measurements listed above. 2. Performing surgeon to determine viability as conduit.
--- NOTE | 2022-06-19 08:01 | P.PN ---
Subjective Progress Note Date: 06/19/22 Principal diagnosis: Triple-vessel coronary artery disease with left main disease, non-STEMI this admission. Previous medical history PCI x2, hypertension, hyperlipidemia, rzu-asmlffp-stgfribyx diabetes, current tobacco dependence, mild COPD, peripheral arterial disease with left lower extremity stenting, and family history of premature coronary artery disease with father having 3 vessel CABG at 47 years old POD #1 off-pump coronary artery bypass grafting 4, left internal thoracic artery sequentially to the diagonal then left anterior descending coronary artery, left radial artery from the aorta to the ramus intermedius, reverse saphenous vein graft to the posterior descending artery, endoscopic left radial and bilateral greater saphenous vein harvest, left atrial appendage ligation with #35 mm AtriCure clip, intraoperative transesophageal echocardiogram The patient was seen and examined this morning sitting up in a recliner in no acute distress. He was successfully extubated yesterday at 16:12. Currently in sinus rhythm and hemodynamically stable on no inotropes or pressors. Apparently he had a brief episode yesterday of second-degree type II heart block, IV Cardizem was discontinued and the patient has remained in sinus rhythm since. IV nitro remains for vessel spasm prophylaxis. Patient states postsurgical pain controlled on current medication regimen, denies shortness of breath. Currently on 6 L high flow nasal cannula with oxygen saturation in the low 90s, only able to achieve 750 mL on incentive spirometry. Urine output stable. Right internal jugular Orange/Cordis, right radial arterial line, mediastinal/right/left pleural chest tubes all remain. No other new concerns. Objective - Vital Signs Vital signs: Vital Signs Temp 98.4 F 06/19/22 04:00 Pulse 85 06/19/22 07:00 Resp 16 06/19/22 07:00 BP 114/66 06/19/22 07:00 Pulse Ox 96 06/19/22 07:00 FiO2 40 06/18/22 15:28 Intake & Output 06/18/22 06/19/22 06/19/22 18:59 06:59 18:59 Intake Total 614.222 949.442 Output Total 2337 1752 Balance -2352.778 -802.558 Weight 87.1 kg Intake: IV 581.5 873.5 ACETAMINOPHEN IV (For NPO 100 ) 1,000 mg In Empty Bag 1 bag @ 400 mls/hr IVPB Q6HR [facility] Rx#:[id number] CO/CI 80 130 Diltiazem 125 mg In 25 5 Sodium Chloride 0.9% 100 ml @ 5 MG/HR 5 mls/hr IV .Q24H [facility] Rx#:[id number] Lactated Ringers 1,000 ml 220 620 @ 20 mls/hr IV .Q24H [facility] Rx#:[id number] Nitroglycerin-D5w Pmx 50 7.5 1.5 mg In Dextrose/Water 1 250ml.bag @ 5 MCG/MIN 1.5 mls/hr IV .Q24H [facility] Rx#: [id number] PRESSURE BAG 45 117 ceFAZolin 2 gm In Sodium 100 Chloride 0.9% 50 ml @ 100 mls/hr IVPB Q8HR [facility] Rx# :[id number] Intake, IV Titration 32.722 75.942 Amount Clevidipine Butyrate 25 1.267 19.267 mg In Empty Bag 1 bag @ 1 MG/HR 2 mls/hr IV .Q24H [facility] Rx#:[id number] Diltiazem 125 mg In 29.833 Sodium Chloride 0.9% 100 ml @ 5 MG/HR 5 mls/hr IV .Q24H [facility] Rx#:[id number] Insulin Regular 100 unit 9.630 26.842 In Sodium Chloride 0.9% 100 ml @ Per Protocol IV .Q0M [facility] Rx#:[id number] propofoL 1,000 mg In 21.825 Empty Bag 1 bag @ Titrate IV .Q0M [facility] Rx#: [id number] Output: Chest Tube Drainage 275 472 Chest Tube Mediastinal 115 256 Right/Left 160 216 Urine 1462 1280 Estimated Blood Loss 600 Other: Voiding Method Indwelling Catheter Indwelling Catheter ABP, PAP, CO, CI - Last Documented Arterial Blood Pressure 113/98 Pulmonary Artery Pressure 25/8 Cardiac Output 3.4 Cardiac Index 6.7 - Exam CONSTITUTIONAL: Appears comfortable, cooperative, no acute distress RESPIRATORY: Lungs sounds diminished bilaterally. Respirations even, nonlabored. Currently on 6 L high flow nasal cannula with oxygen saturation 96%. Able to achieve 750 mL on incentive spirometry. Strong nonproductive cough. CARDIOVASCULAR: S1, S2 present. Regular rate and rhythm, sinus rhythm on telemetry. Sternum stable. Palpable peripheral pulses bilaterally. Trace generalized edema present. No calf pain or tenderness noted. Heart hugger in place with patient demonstrating appropriate use. Antiembolism stockings, SCDs present. GASTROINTESTINAL: Abdomen soft, nontender, nondistended. Hypoactive bowel sounds present 4 quadrants. Tolerating clear liquids. Denies flatus. GENITOURINARY: [place] present draining clear, yellow urine. Output overnight 40-100 mL per hour INTEGUMENTARY: Skin is warm and dry with evidence of good perfusion. Anterior chest incision well approximated and covered with dry intact dressing. Bilateral lower extremity EVH sites as well as left radial artery harvest site well approximated without redness or drainage. NEUROLOGIC: Cranial nerves II through XII intact MUSKULOSKELETAL: Able to move all extremities, strength equal bilaterally PSYCHIATRIC: Alert and oriented to person place and time, appropriate affect, intact judgment and insight INVASIVE LINES AND TUBES: Mediastinal/left/right pleural chest tubes present and connected to wall suction, no air leaks present. Mediastinal tube with 170 mL serosanguineous drainage overnight, 400 mL since surgery. Left/right pleural chest tubes with 150 mL serosanguineous drainage overnight, 400 mL since surgery. Right internal jugular Orange/Cordis, right radial arterial line present. Last CO/CI 6.7/3.4, PA 28/10, CVP 3. - Allied health notes Allied health notes reviewed: nursing - Labs CBC & Chem 7: 06/19/22 03:55 06/19/22 03:55 Labs: Abnormal Lab Results - Last 24 Hours (Table) 06/17/22 06/18/22 06/18/22 Range/Units 08:11 08:42 10:28 WBC (3.8-10.6) k/uL RBC (4.30-5.90) m/uL Hgb (13.0-17.5) gm/dL Hct (39.0-53.0) % Plt Count (150-450) k/uL Neutrophils # (1.3-7.7) k/uL Monocytes # (0-1.0) k/uL PT (9.0-12.0) sec INR (<1.2) ABG pH (7.35-7.45) ABG pCO2 34 L (35-45) mmHg ABG pO2 340 H 151 H (83-108) mmHg ABG Total CO2 25 H (19-24) mmol/L ABG O2 Saturation 100.0 H 98.9 H (94-97) % ABG Hematocrit (34.0-46.0) % ABG Ionized Calcium (4.5-5.3) mg/dL ABG Glucose 137 H 171 H (75-99) mg/dL ABG Lactic Acid 1.9 H 1.7 H (0.5-1.6) mmol/L Hemoglobin 11.6 L 11.3 L (13.0-17.5) gm/dL Sodium (137-145) mmol/L Chloride (98-107) mmol/L Glucose (74-99) mg/dL POC Glucose (mg/dL) (70-110) mg/dL Calcium (8.4-10.2) mg/dL Magnesium (1.6-2.3) mg/dL Alkaline Phosphatase (38-126) U/L Total Protein (6.3-8.2) g/dL Albumin (3.5-5.0) g/dL Arterial Blood Glucose 137 H 171 H (75-99) mg/dL Crossmatch See Detail 06/18/22 06/18/22 06/18/22 Range/Units 11:29 12:33 12:44 WBC 11.0 H (3.8-10.6) k/uL RBC 3.15 L (4.30-5.90) m/uL Hgb 9.9 L D (13.0-17.5) gm/dL Hct 30.3 L (39.0-53.0) % Plt Count 141 L (150-450) k/uL Neutrophils # 8.0 H (1.3-7.7) k/uL Monocytes # (0-1.0) k/uL PT (9.0-12.0) sec INR (<1.2) ABG pH (7.35-7.45) ABG pCO2 33 L (35-45) mmHg ABG pO2 165 H (83-108) mmHg ABG Total CO2 (19-24) mmol/L ABG O2 Saturation 99.3 H 97.2 H (94-97) % ABG Hematocrit 32 L 31 L (34.0-46.0) % ABG Ionized Calcium 4.4 L (4.5-5.3) mg/dL ABG Glucose 151 H 126 H (75-99) mg/dL ABG Lactic Acid 2.4 H* 2.4 H* (0.5-1.6) mmol/L Hemoglobin 10.3 L 10.2 L (13.0-17.5) gm/dL Sodium (137-145) mmol/L Chloride (98-107) mmol/L Glucose (74-99) mg/dL POC Glucose (mg/dL) (70-110) mg/dL Calcium (8.4-10.2) mg/dL Magnesium (1.6-2.3) mg/dL Alkaline Phosphatase (38-126) U/L Total Protein (6.3-8.2) g/dL Albumin (3.5-5.0) g/dL Arterial Blood Glucose 151 H 126 H (75-99) mg/dL Crossmatch 06/18/22 06/18/22 06/18/22 Range/Units 12:44 12:44 13:16 WBC (3.8-10.6) k/uL RBC (4.30-5.90) m/uL Hgb (13.0-17.5) gm/dL Hct (39.0-53.0) % Plt Count (150-450) k/uL Neutrophils # (1.3-7.7) k/uL Monocytes # (0-1.0) k/uL PT 12.4 H (9.0-12.0) sec INR 1.2 H (<1.2) ABG pH (7.35-7.45) ABG pCO2 (35-45) mmHg ABG pO2 (83-108) mmHg ABG Total CO2 (19-24) mmol/L ABG O2 Saturation (94-97) % ABG Hematocrit (34.0-46.0) % ABG Ionized Calcium (4.5-5.3) mg/dL ABG Glucose (75-99) mg/dL ABG Lactic Acid (0.5-1.6) mmol/L Hemoglobin (13.0-17.5) gm/dL Sodium (137-145) mmol/L Chloride 109 H (98-107) mmol/L Glucose 114 H (74-99) mg/dL POC Glucose (mg/dL) 124 H (70-110) mg/dL Calcium 7.7 L (8.4-10.2) mg/dL Magnesium (1.6-2.3) mg/dL Alkaline Phosphatase 35 L (38-126) U/L Total Protein 4.5 L (6.3-8.2) g/dL Albumin 2.9 L (3.5-5.0) g/dL Arterial Blood Glucose (75-99) mg/dL Crossmatch 06/18/22 06/18/22 06/18/22 Range/Units 14:08 15:08 16:04 WBC (3.8-10.6) k/uL RBC (4.30-5.90) m/uL Hgb (13.0-17.5) gm/dL Hct (39.0-53.0) % Plt Count (150-450) k/uL Neutrophils # (1.3-7.7) k/uL Monocytes # (0-1.0) k/uL PT (9.0-12.0) sec INR (<1.2) ABG pH (7.35-7.45) ABG pCO2 (35-45) mmHg ABG pO2 (83-108) mmHg ABG Total CO2 (19-24) mmol/L ABG O2 Saturation (94-97) % ABG Hematocrit (34.0-46.0) % ABG Ionized Calcium (4.5-5.3) mg/dL ABG Glucose (75-99) mg/dL ABG Lactic Acid (0.5-1.6) mmol/L Hemoglobin (13.0-17.5) gm/dL Sodium (137-145) mmol/L Chloride (98-107) mmol/L Glucose (74-99) mg/dL POC Glucose (mg/dL) 134 H 154 H 193 H (70-110) mg/dL Calcium (8.4-10.2) mg/dL Magnesium (1.6-2.3) mg/dL Alkaline Phosphatase (38-126) U/L Total Protein (6.3-8.2) g/dL Albumin (3.5-5.0) g/dL Arterial Blood Glucose (75-99) mg/dL Crossmatch 06/18/22 06/18/22 06/18/22 Range/Units 16:05 17:12 17:15 WBC 16.2 H (3.8-10.6) k/uL RBC 3.49 L (4.30-5.90) m/uL Hgb 11.1 L (13.0-17.5) gm/dL Hct 33.2 L (39.0-53.0) % Plt Count (150-450) k/uL Neutrophils # 11.9 H (1.3-7.7) k/uL Monocytes # 1.4 H (0-1.0) k/uL PT (9.0-12.0) sec INR (<1.2) ABG pH 7.31 L (7.35-7.45) ABG pCO2 47 H (35-45) mmHg ABG pO2 72 L (83-108) mmHg ABG Total CO2 25 H (19-24) mmol/L ABG O2 Saturation 93.7 L (94-97) % ABG Hematocrit (34.0-46.0) % ABG Ionized Calcium (4.5-5.3) mg/dL ABG Glucose (75-99) mg/dL ABG Lactic Acid (0.5-1.6) mmol/L Hemoglobin (13.0-17.5) gm/dL Sodium (137-145) mmol/L Chloride (98-107) mmol/L Glucose (74-99) mg/dL POC Glucose (mg/dL) 158 H (70-110) mg/dL Calcium (8.4-10.2) mg/dL Magnesium (1.6-2.3) mg/dL Alkaline Phosphatase (38-126) U/L Total Protein (6.3-8.2) g/dL Albumin (3.5-5.0) g/dL Arterial Blood Glucose (75-99) mg/dL Crossmatch 06/18/22 06/18/22 06/18/22 Range/Units 18:10 18:57 20:04 WBC (3.8-10.6) k/uL RBC (4.30-5.90) m/uL Hgb (13.0-17.5) gm/dL Hct (39.0-53.0) % Plt Count (150-450) k/uL Neutrophils # (1.3-7.7) k/uL Monocytes # (0-1.0) k/uL PT (9.0-12.0) sec INR (<1.2) ABG pH (7.35-7.45) ABG pCO2 (35-45) mmHg ABG pO2 (83-108) mmHg ABG Total CO2 (19-24) mmol/L ABG O2 Saturation (94-97) % ABG Hematocrit (34.0-46.0) % ABG Ionized Calcium (4.5-5.3) mg/dL ABG Glucose (75-99) mg/dL ABG Lactic Acid (0.5-1.6) mmol/L Hemoglobin (13.0-17.5) gm/dL Sodium (137-145) mmol/L Chloride (98-107) mmol/L Glucose (74-99) mg/dL POC Glucose (mg/dL) 167 H 152 H 127 H (70-110) mg/dL Calcium (8.4-10.2) mg/dL Magnesium (1.6-2.3) mg/dL Alkaline Phosphatase (38-126) U/L Total Protein (6.3-8.2) g/dL Albumin (3.5-5.0) g/dL Arterial Blood Glucose (75-99) mg/dL Crossmatch 06/18/22 06/18/22 06/18/22 Range/Units 20:50 20:50 20:51 WBC (3.8-10.6) k/uL RBC 3.53 L (4.30-5.90) m/uL Hgb 11.1 L (13.0-17.5) gm/dL Hct 33.2 L (39.0-53.0) % Plt Count (150-450) k/uL Neutrophils # (1.3-7.7) k/uL Monocytes # (0-1.0) k/uL PT (9.0-12.0) sec INR (<1.2) ABG pH (7.35-7.45) ABG pCO2 (35-45) mmHg ABG pO2 (83-108) mmHg ABG Total CO2 (19-24) mmol/L ABG O2 Saturation (94-97) % ABG Hematocrit (34.0-46.0) % ABG Ionized Calcium (4.5-5.3) mg/dL ABG Glucose (75-99) mg/dL ABG Lactic Acid (0.5-1.6) mmol/L Hemoglobin (13.0-17.5) gm/dL Sodium 136 L (137-145) mmol/L Chloride (98-107) mmol/L Glucose 106 H (74-99) mg/dL POC Glucose (mg/dL) 114 H (70-110) mg/dL Calcium 8.1 L (8.4-10.2) mg/dL Magnesium 1.5 L (1.6-2.3) mg/dL Alkaline Phosphatase (38-126) U/L Total Protein (6.3-8.2) g/dL Albumin (3.5-5.0) g/dL Arterial Blood Glucose (75-99) mg/dL Crossmatch 06/18/22 06/18/22 06/18/22 Range/Units 21:57 23:11 23:55 WBC (3.8-10.6) k/uL RBC (4.30-5.90) m/uL Hgb (13.0-17.5) gm/dL Hct (39.0-53.0) % Plt Count (150-450) k/uL Neutrophils # (1.3-7.7) k/uL Monocytes # (0-1.0) k/uL PT (9.0-12.0) sec INR (<1.2) ABG pH (7.35-7.45) ABG pCO2 (35-45) mmHg ABG pO2 (83-108) mmHg ABG Total CO2 (19-24) mmol/L ABG O2 Saturation (94-97) % ABG Hematocrit (34.0-46.0) % ABG Ionized Calcium (4.5-5.3) mg/dL ABG Glucose (75-99) mg/dL ABG Lactic Acid (0.5-1.6) mmol/L Hemoglobin (13.0-17.5) gm/dL Sodium (137-145) mmol/L Chloride (98-107) mmol/L Glucose (74-99) mg/dL POC Glucose (mg/dL) 140 H 136 H 132 H (70-110) mg/dL Calcium (8.4-10.2) mg/dL Magnesium (1.6-2.3) mg/dL Alkaline Phosphatase (38-126) U/L Total Protein (6.3-8.2) g/dL Albumin (3.5-5.0) g/dL Arterial Blood Glucose (75-99) mg/dL Crossmatch 06/19/22 06/19/22 06/19/22 Range/Units 00:59 01:56 02:54 WBC (3.8-10.6) k/uL RBC (4.30-5.90) m/uL Hgb (13.0-17.5) gm/dL Hct (39.0-53.0) % Plt Count (150-450) k/uL Neutrophils # (1.3-7.7) k/uL Monocytes # (0-1.0) k/uL PT (9.0-12.0) sec INR (<1.2) ABG pH (7.35-7.45) ABG pCO2 (35-45) mmHg ABG pO2 (83-108) mmHg ABG Total CO2 (19-24) mmol/L ABG O2 Saturation (94-97) % ABG Hematocrit (34.0-46.0) % ABG Ionized Calcium (4.5-5.3) mg/dL ABG Glucose (75-99) mg/dL ABG Lactic Acid (0.5-1.6) mmol/L Hemoglobin (13.0-17.5) gm/dL Sodium (137-145) mmol/L Chloride (98-107) mmol/L Glucose (74-99) mg/dL POC Glucose (mg/dL) 113 H 117 H 136 H (70-110) mg/dL Calcium (8.4-10.2) mg/dL Magnesium (1.6-2.3) mg/dL Alkaline Phosphatase (38-126) U/L Total Protein (6.3-8.2) g/dL Albumin (3.5-5.0) g/dL Arterial Blood Glucose (75-99) mg/dL Crossmatch 06/19/22 06/19/22 06/19/22 Range/Units 03:50 03:55 03:55 WBC (3.8-10.6) k/uL RBC 3.50 L (4.30-5.90) m/uL Hgb 11.0 L (13.0-17.5) gm/dL Hct 33.2 L (39.0-53.0) % Plt Count (150-450) k/uL Neutrophils # (1.3-7.7) k/uL Monocytes # (0-1.0) k/uL PT (9.0-12.0) sec INR (<1.2) ABG pH (7.35-7.45) ABG pCO2 (35-45) mmHg ABG pO2 (83-108) mmHg ABG Total CO2 (19-24) mmol/L ABG O2 Saturation (94-97) % ABG Hematocrit (34.0-46.0) % ABG Ionized Calcium (4.5-5.3) mg/dL ABG Glucose (75-99) mg/dL ABG Lactic Acid (0.5-1.6) mmol/L Hemoglobin (13.0-17.5) gm/dL Sodium 133 L (137-145) mmol/L Chloride (98-107) mmol/L Glucose 127 H (74-99) mg/dL POC Glucose (mg/dL) 137 H (70-110) mg/dL Calcium 7.8 L (8.4-10.2) mg/dL Magnesium (1.6-2.3) mg/dL Alkaline Phosphatase (38-126) U/L Total Protein 4.9 L (6.3-8.2) g/dL Albumin 3.2 L (3.5-5.0) g/dL Arterial Blood Glucose (75-99) mg/dL Crossmatch 06/19/22 06/19/22 06/19/22 Range/Units 04:56 05:56 06:55 WBC (3.8-10.6) k/uL RBC (4.30-5.90) m/uL Hgb (13.0-17.5) gm/dL Hct (39.0-53.0) % Plt Count (150-450) k/uL Neutrophils # (1.3-7.7) k/uL Monocytes # (0-1.0) k/uL PT (9.0-12.0) sec INR (<1.2) ABG pH (7.35-7.45) ABG pCO2 (35-45) mmHg ABG pO2 (83-108) mmHg ABG Total CO2 (19-24) mmol/L ABG O2 Saturation (94-97) % ABG Hematocrit (34.0-46.0) % ABG Ionized Calcium (4.5-5.3) mg/dL ABG Glucose (75-99) mg/dL ABG Lactic Acid (0.5-1.6) mmol/L Hemoglobin (13.0-17.5) gm/dL Sodium (137-145) mmol/L Chloride (98-107) mmol/L Glucose (74-99) mg/dL POC Glucose (mg/dL) 135 H 140 H 157 H (70-110) mg/dL Calcium (8.4-10.2) mg/dL Magnesium (1.6-2.3) mg/dL Alkaline Phosphatase (38-126) U/L Total Protein (6.3-8.2) g/dL Albumin (3.5-5.0) g/dL Arterial Blood Glucose (75-99) mg/dL Crossmatch - Imaging and Cardiology Chest x-ray: image reviewed Assessment and Plan Assessment: 1. Triple-vessel coronary artery disease with left main disease, non-STEMI this admission, status post three-vessel off-pump CABG 2. History of previous PCI 3. Hypertension 4. Hyperlipidemia, treated, cholesterol 154, LDL 78, triglycerides 160 5. Mwc-ienldxh-pgxedpwal diabetes, current hemoglobin A1c 7.2% 6. Current tobacco dependence 7. Mild COPD with preoperative FEV1 71% of predicted 8. Peripheral arterial disease with left lower extremity stenting 9. Family history of premature coronary artery disease with father having 3 vessel CABG at 47 years old Plan: 1. Continue to maximize medical therapy with aspirin, statin, Plavix, beta bloc ker therapy. Will increase beta lidya therapy as tolerated. Discontinue IV nitro, will start low-dose amlodipine for radial artery spasm prophylaxis 2. Wean O2 as tolerated. Encourage incentive spirometry use 10 times every hour while awake. Bronchodilators per pulmonology 3. Increase activity, ambulate as tolerated. PT/OT/cardiac rehab consulted 4. Will monitor daily labs and x-rays. Electrolyte replacement per protocol. No lasix today. 5. GI/DVT prophylaxis 6. Insulin management per internal medicine 7. Pain control with current medication regimen 8. Discontinue Orange. Connect Cordis to continuous CVP monitoring. Discontinue arterial line as its no longer functional 9. Continue chest tubes for another 24 hours 10. Continue Vegas catheter for another 24 hours for strict accurate intake and output. Daily weights 11. Smoking cessation education and counseling was provided, patient was strongly encouraged to quit smoking completely 12. More recommendations to follow
[2022-06-19 08:07] LABS: Glucose,Whole Blood 135 mg/dL (70-110)
[2022-06-19] MEDS: IPRATROPIUM-ALBUTEROL 3 ML NEB INHALATION SCH ×4 (08:19→19:28)
--- NOTE | 2022-06-19 08:23 | XR ---
EXAMINATION TYPE: XR chest 1V portable DATE OF EXAM: 06/19/2022 5:43 AM COMPARISON: Chest radiographs from 06/18/2022 TECHNIQUE: XR chest 1V portable Portable AP radiograph of the chest. CLINICAL INDICATION:Male, 67 years old with history of Post Operative Cardiac Surgery; FINDINGS: Lungs/Pleura: There is no evidence of pleural effusion, focal consolidation, or pneumothorax. Pulmonary vascularity: Unremarkable. Heart/mediastinum: Cardiomediastinal silhouette is enlarged and stable. Left atrial appendage occlusi on device is present. Musculoskeletal: No acute osseous pathology. Midline sternotomy wires are noted. Lines/Tubes: Interval removal of endotracheal and nasogastric tubes. Drainage tubes with tips projecting over the mediastinum. Left thoracotomy tube is present without evidence of pneumothorax. There is a [place]-R[place]to catheter with tip projecting over the spine. IMPRESSION: 1. No acute cardiopulmonary disease/process. 2. Lines and tubes as above.
--- NOTE | 2022-06-19 08:38 | P.PN ---
Subjective PROGRESS NOTE The patient is feeling well this morning, ambulating without any chest discomfort. His breathing is stable. He underwent cardiac catheterization yesterday and was found to have severe triple vessel disease with significant distal left main disease. He is scheduled to undergo CABG on Saturday. He continues to be on IV heparin. He was evaluated by the pulmonary service. He continues to be in sinus mechanism with no evidence of atrial fibrillation. June 17: The patient is doing well, ambulating, has no chest discomfort, dizziness or palpitations. He had some burning in the chest after using the updraft. He denies any nausea or vomiting. He continues to be in sinus mechanism. He is using incentive spirometry. He is scheduled to undergo CABG tomorrow. 06/19 Patient seen and examined. Patient underwent 4 vessel CABG with GRESHAM to diagonal to LAD, SVG to PDA, left radial to ramus. Patient was extubated and not on any vasopressors. He did have brief episodes of second-degree block which appears to be Wenkebach. Therefore cardizem drip was stopped and on Amlodipine. Denies any chest pain or pressure other than his incision. No shortness breath. PHYSICAL EXAMINATION: Blood pressure 137/84 heart rate 87 LUNGS: Mild decrease in the breath sounds, no wheezes HEART: Regular rate and rhythm, S1, S2. No S3. systolic ejection murmur ABDOMEN: Soft, nontender, no organomegaly EXTREMETIES: No edema, IMPRESSION: 1. Severe triple-vessel disease with non-STEMI, s/p CABG x 4 06/18 2. Status post stenting of the RCA and ramus intermedius in the past 3. History of hypertension 4. Hyperlipidemia 5. History of diabetes 6. Chronic tobacco use with COPD 7. 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 Second- degree type I AV block with no indication for any pacemaker. Continue to monitor patient symptomatically. Further recommendations to follow. Objective - Vital Signs Vital signs: Vital Signs Temp 98.4 F 06/19/22 04:00 Pulse 95 06/19/22 08:31 Resp 16 06/19/22 07:00 BP 114/66 06/19/22 07:00 Pulse Ox 96 06/19/22 07:00 FiO2 40 06/18/22 15:28 Intake & Output 06/18/22 06/19/22 06/19/22 18:59 06:59 18:59 Intake Total 614.222 949.442 4.065 Output Total 2337 1752 Balance -1722.778 -802.558 4.065 Weight 87.1 kg Intake: IV 581.5 873.5 ACETAMINOPHEN IV (For NPO 100 ) 1,000 mg In Empty Bag 1 bag @ 400 mls/hr IVPB Q6HR [facility]IE Rx#:[id number] CO/CI 80 130 Diltiazem 125 mg In 25 5 Sodium Chloride 0.9% 100 ml @ 5 MG/HR 5 mls/hr IV .Q24H ONE Rx#:[id number] Lactated Ringers 1,000 ml 220 620 @ 20 mls/hr IV .Q24H [facility]IE Rx#:[id number] Nitroglycerin-D5w Pmx 50 7.5 1.5 mg In Dextrose/Water 1 250ml.bag @ 5 MCG/MIN 1.5 mls/hr IV .Q24H BETHANIE Rx#: [id number] PRESSURE BAG 45 117 ceFAZolin 2 gm In Sodium 100 Chloride 0.9% 50 ml @ 100 mls/hr IVPB Q8HR [facility]IE Rx# :[id number] Intake, IV Titration 32.722 75.942 4.065 Amount Clevidipine Butyrate 25 1.267 19.267 mg In Empty Bag 1 bag @ 1 MG/HR 2 mls/hr IV .Q24H [facility]IE Rx#:[id number] Diltiazem 125 mg In 29.833 Sodium Chloride 0.9% 100 ml @ 5 MG/HR 5 mls/hr IV .Q24H [facility]IE Rx#:[id number] Insulin Regular 100 unit 9.630 26.842 4.065 In Sodium Chloride 0.9% 100 ml @ Per Protocol IV .Q0M [facility]IE Rx#:[id number] propofoL 1,000 mg In 21.825 Empty Bag 1 bag @ Titrate IV .Q0M B[facility]ANIE Rx#: [id number] Output: Chest Tube Drainage 275 472 Chest Tube Mediastinal 115 256 Right/Left 160 216 Urine 1462 1280 Estimated Blood Loss 600 Other: Voiding Method Indwelling Catheter Indwelling Catheter ABP, PAP, CO, CI - Last Documented Arterial Blood Pressure 113/98 Pulmonary Artery Pressure 25/8 Cardiac Output 3.4 Cardiac Index 6.7 - Labs CBC & Chem 7: 06/19/22 03:55 06/19/22 03:55 Labs: Abnormal Lab Results - Last 24 Hours (Table) 06/17/22 06/18/22 06/18/22 Range/Units 08:11 08:42 10:28 WBC (3.8-10.6) k/uL RBC (4.30-5.90) m/uL Hgb (13.0-17.5) gm/dL Hct (39.0-53.0) % Plt Count (150-450) k/uL Neutrophils # (1.3-7.7) k/uL Monocytes # (0-1.0) k/uL PT (9.0-12.0) sec INR (<1.2) ABG pH (7.35-7.45) ABG pCO2 34 L (35-45) mmHg ABG pO2 340 H 151 H (83-108) mmHg ABG Total CO2 25 H (19-24) mmol/L ABG O2 Saturation 100.0 H 98.9 H (94-97) % ABG Hematocrit (34.0-46.0) % ABG Ionized Calcium (4.5-5.3) mg/dL ABG Glucose 137 H 171 H (75-99) mg/dL ABG Lactic Acid 1.9 H 1.7 H (0.5-1.6) mmol/L Hemoglobin 11.6 L 11.3 L (13.0-17.5) gm/dL Sodium (137-145) mmol/L Chloride (98-107) mmol/L Glucose (74-99) mg/dL POC Glucose (mg/dL) (70-110) mg/dL Calcium (8.4-10.2) mg/dL Magnesium (1.6-2.3) mg/dL Alkaline Phosphatase (38-126) U/L Total Protein (6.3-8.2) g/dL Albumin (3.5-5.0) g/dL Arterial Blood Glucose 137 H 171 H (75-99) mg/dL Crossmatch See Detail 06/18/22 06/18/22 06/18/22 Range/Units 11:29 12:33 12:44 WBC 11.0 H (3.8-10.6) k/uL RBC 3.15 L (4.30-5.90) m/uL Hgb 9.9 L D (13.0-17.5) gm/dL Hct 30.3 L (39.0-53.0) % Plt Count 141 L (150-450) k/uL Neutrophils # 8.0 H (1.3-7.7) k/uL Monocytes # (0-1.0) k/uL PT (9.0-12.0) sec INR (<1.2) ABG pH (7.35-7.45) ABG pCO2 33 L (35-45) mmHg ABG pO2 165 H (83-108) mmHg ABG Total CO2 (19-24) mmol/L ABG O2 Saturation 99.3 H 97.2 H (94-97) % ABG Hematocrit 32 L 31 L (34.0-46.0) % ABG Ionized Calcium 4.4 L (4.5-5.3) mg/dL ABG Glucose 151 H 126 H (75-99) mg/dL ABG Lactic Acid 2.4 H* 2.4 H* (0.5-1.6) mmol/L Hemoglobin 10.3 L 10.2 L (13.0-17.5) gm/dL Sodium (137-145) mmol/L Chloride (98-107) mmol/L Glucose (74-99) mg/dL POC Glucose (mg/dL) (70-110) mg/dL Calcium (8.4-10.2) mg/dL Magnesium (1.6-2.3) mg/dL Alkaline Phosphatase (38-126) U/L Total Protein (6.3-8.2) g/dL Albumin (3.5-5.0) g/dL Arterial Blood Glucose 151 H 126 H (75-99) mg/dL Crossmatch 06/18/22 06/18/22 06/18/22 Range/Units 12:44 12:44 13:16 WBC (3.8-10.6) k/uL RBC (4.30-5.90) m/uL Hgb (13.0-17.5) gm/dL Hct (39.0-53.0) % Plt Count (150-450) k/uL Neutrophils # (1.3-7.7) k/uL Monocytes # (0-1.0) k/uL PT 12.4 H (9.0-12.0) sec INR 1.2 H (<1.2) ABG pH (7.35-7.45) ABG pCO2 (35-45) mmHg ABG pO2 (83-108) mmHg ABG Total CO2 (19-24) mmol/L ABG O2 Saturation (94-97) % ABG Hematocrit (34.0-46.0) % ABG Ionized Calcium (4.5-5.3) mg/dL ABG Glucose (75-99) mg/dL ABG Lactic Acid (0.5-1.6) mmol/L Hemoglobin (13.0-17.5) gm/dL Sodium (137-145) mmol/L Chloride 109 H (98-107) mmol/L Glucose 114 H (74-99) mg/dL POC Glucose (mg/dL) 124 H (70-110) mg/dL Calcium 7.7 L (8.4-10.2) mg/dL Magnesium (1.6-2.3) mg/dL Alkaline Phosphatase 35 L (38-126) U/L Total Protein 4.5 L (6.3-8.2) g/dL Albumin 2.9 L (3.5-5.0) g/dL Arterial Blood Glucose (75-99) mg/dL Crossmatch 06/18/22 06/18/22 06/18/22 Range/Units 14:08 15:08 16:04 WBC (3.8-10.6) k/uL RBC (4.30-5.90) m/uL Hgb (13.0-17.5) gm/dL Hct (39.0-53.0) % Plt Count (150-450) k/uL Neutrophils # (1.3-7.7) k/uL Monocytes # (0-1.0) k/uL PT (9.0-12.0) sec INR (<1.2) ABG pH (7.35-7.45) ABG pCO2 (35-45) mmHg ABG pO2 (83-108) mmHg ABG Total CO2 (19-24) mmol/L ABG O2 Saturation (94-97) % ABG Hematocrit (34.0-46.0) % ABG Ionized Calcium (4.5-5.3) mg/dL ABG Glucose (75-99) mg/dL ABG Lactic Acid (0.5-1.6) mmol/L Hemoglobin (13.0-17.5) gm/dL Sodium (137-145) mmol/L Chloride (98-107) mmol/L Glucose (74-99) mg/dL POC Glucose (mg/dL) 134 H 154 H 193 H (70-110) mg/dL Calcium (8.4-10.2) mg/dL Magnesium (1.6-2.3) mg/dL Alkaline Phosphatase (38-126) U/L Total Protein (6.3-8.2) g/dL Albumin (3.5-5.0) g/dL Arterial Blood Glucose (75-99) mg/dL Crossmatch 06/18/22 06/18/22 06/18/22 Range/Units 16:05 17:12 17:15 WBC 16.2 H (3.8-10.6) k/uL RBC 3.49 L (4.30-5.90) m/uL Hgb 11.1 L (13.0-17.5) gm/dL Hct 33.2 L (39.0-53.0) % Plt Count (150-450) k/uL Neutrophils # 11.9 H (1.3-7.7) k/uL Monocytes # 1.4 H (0-1.0) k/uL PT (9.0-12.0) sec INR (<1.2) ABG pH 7.31 L (7.35-7.45) ABG pCO2 47 H (35-45) mmHg ABG pO2 72 L (83-108) mmHg ABG Total CO2 25 H (19-24) mmol/L ABG O2 Saturation 93.7 L (94-97) % ABG Hematocrit (34.0-46.0) % ABG Ionized Calcium (4.5-5.3) mg/dL ABG Glucose (75-99) mg/dL ABG Lactic Acid (0.5-1.6) mmol/L Hemoglobin (13.0-17.5) gm/dL Sodium (137-145) mmol/L Chloride (98-107) mmol/L Glucose (74-99) mg/dL POC Glucose (mg/dL) 158 H (70-110) mg/dL Calcium (8.4-10.2) mg/dL Magnesium (1.6-2.3) mg/dL Alkaline Phosphatase (38-126) U/L Total Protein (6.3-8.2) g/dL Albumin (3.5-5.0) g/dL Arterial Blood Glucose (75-99) mg/dL Crossmatch 06/18/22 06/18/22 06/18/22 Range/Units 18:10 18:57 20:04 WBC (3.8-10.6) k/uL RBC (4.30-5.90) m/uL Hgb (13.0-17.5) gm/dL Hct (39.0-53.0) % Plt Count (150-450) k/uL Neutrophils # (1.3-7.7) k/uL Monocytes # (0-1.0) k/uL PT (9.0-12.0) sec INR (<1.2) ABG pH (7.35-7.45) ABG pCO2 (35-45) mmHg ABG pO2 (83-108) mmHg ABG Total CO2 (19-24) mmol/L ABG O2 Saturation (94-97) % ABG Hematocrit (34.0-46.0) % ABG Ionized Calcium (4.5-5.3) mg/dL ABG Glucose (75-99) mg/dL ABG Lactic Acid (0.5-1.6) mmol/L Hemoglobin (13.0-17.5) gm/dL Sodium (137-145) mmol/L Chloride (98-107) mmol/L Glucose (74-99) mg/dL POC Glucose (mg/dL) 167 H 152 H 127 H (70-110) mg/dL Calcium (8.4-10.2) mg/dL Magnesium (1.6-2.3) mg/dL Alkaline Phosphatase (38-126) U/L Total Protein (6.3-8.2) g/dL Albumin (3.5-5.0) g/dL Arterial Blood Glucose (75-99) mg/dL Crossmatch 06/18/22 06/18/22 06/18/22 Range/Units 20:50 20:50 20:51 WBC (3.8-10.6) k/uL RBC 3.53 L (4.30-5.90) m/uL Hgb 11.1 L (13.0-17.5) gm/dL Hct 33.2 L (39.0-53.0) % Plt Count (150-450) k/uL Neutrophils # (1.3-7.7) k/uL Monocytes # (0-1.0) k/uL PT (9.0-12.0) sec INR (<1.2) ABG pH (7.35-7.45) ABG pCO2 (35-45) mmHg ABG pO2 (83-108) mmHg ABG Total CO2 (19-24) mmol/L ABG O2 Saturation (94-97) % ABG Hematocrit (34.0-46.0) % ABG Ionized Calcium (4.5-5.3) mg/dL ABG Glucose (75-99) mg/dL ABG Lactic Acid (0.5-1.6) mmol/L Hemoglobin (13.0-17.5) gm/dL Sodium 136 L (137-145) mmol/L Chloride (98-107) mmol/L Glucose 106 H (74-99) mg/dL POC Glucose (mg/dL) 114 H (70-110) mg/dL Calcium 8.1 L (8.4-10.2) mg/dL Magnesium 1.5 L (1.6-2.3) mg/dL Alkaline Phosphatase (38-126) U/L Total Protein (6.3-8.2) g/dL Albumin (3.5-5.0) g/dL Arterial Blood Glucose (75-99) mg/dL Crossmatch 06/18/22 06/18/22 06/18/22 Range/Units 21:57 23:11 23:55 WBC (3.8-10.6) k/uL RBC (4.30-5.90) m/uL Hgb (13.0-17.5) gm/dL Hct (39.0-53.0) % Plt Count (150-450) k/uL Neutrophils # (1.3-7.7) k/uL Monocytes # (0-1.0) k/uL PT (9.0-12.0) sec INR (<1.2) ABG pH (7.35-7.45) ABG pCO2 (35-45) mmHg ABG pO2 (83-108) mmHg ABG Total CO2 (19-24) mmol/L ABG O2 Saturation (94-97) % ABG Hematocrit (34.0-46.0) % ABG Ionized Calcium (4.5-5.3) mg/dL ABG Glucose (75-99) mg/dL ABG Lactic Acid (0.5-1.6) mmol/L Hemoglobin (13.0-17.5) gm/dL Sodium (137-145) mmol/L Chloride (98-107) mmol/L Glucose (74-99) mg/dL POC Glucose (mg/dL) 140 H 136 H 132 H (70-110) mg/dL Calcium (8.4-10.2) mg/dL Magnesium (1.6-2.3) mg/dL Alkaline Phosphatase (38-126) U/L Total Protein (6.3-8.2) g/dL Albumin (3.5-5.0) g/dL Arterial Blood Glucose (75-99) mg/dL Crossmatch 06/19/22 06/19/22 06/19/22 Range/Units 00:59 01:56 02:54 WBC (3.8-10.6) k/uL RBC (4.30-5.90) m/uL Hgb (13.0-17.5) gm/dL Hct (39.0-53.0) % Plt Count (150-450) k/uL Neutrophils # (1.3-7.7) k/uL Monocytes # (0-1.0) k/uL PT (9.0-12.0) sec INR (<1.2) ABG pH (7.35-7.45) ABG pCO2 (35-45) mmHg ABG pO2 (83-108) mmHg ABG Total CO2 (19-24) mmol/L ABG O2 Saturation (94-97) % ABG Hematocrit (34.0-46.0) % ABG Ionized Calcium (4.5-5.3) mg/dL ABG Glucose (75-99) mg/dL ABG Lactic Acid (0.5-1.6) mmol/L Hemoglobin (13.0-17.5) gm/dL Sodium (137-145) mmol/L Chloride (98-107) mmol/L Glucose (74-99) mg/dL POC Glucose (mg/dL) 113 H 117 H 136 H (70-110) mg/dL Calcium (8.4-10.2) mg/dL Magnesium (1.6-2.3) mg/dL Alkaline Phosphatase (38-126) U/L Total Protein (6.3-8.2) g/dL Albumin (3.5-5.0) g/dL Arterial Blood Glucose (75-99) mg/dL Crossmatch 06/19/22 06/19/22 06/19/22 Range/Units 03:50 03:55 03:55 WBC (3.8-10.6) k/uL RBC 3.50 L (4.30-5.90) m/uL Hgb 11.0 L (13.0-17.5) gm/dL Hct 33.2 L (39.0-53.0) % Plt Count (150-450) k/uL Neutrophils # (1.3-7.7) k/uL Monocytes # (0-1.0) k/uL PT (9.0-12.0) sec INR (<1.2) ABG pH (7.35-7.45) ABG pCO2 (35-45) mmHg ABG pO2 (83-108) mmHg ABG Total CO2 (19-24) mmol/L ABG O2 Saturation (94-97) % ABG Hematocrit (34.0-46.0) % ABG Ionized Calcium (4.5-5.3) mg/dL ABG Glucose (75-99) mg/dL ABG Lactic Acid (0.5-1.6) mmol/L Hemoglobin (13.0-17.5) gm/dL Sodium 133 L (137-145) mmol/L Chloride (98-107) mmol/L Glucose 127 H (74-99) mg/dL POC Glucose (mg/dL) 137 H (70-110) mg/dL Calcium 7.8 L (8.4-10.2) mg/dL Magnesium (1.6-2.3) mg/dL Alkaline Phosphatase (38-126) U/L Total Protein 4.9 L (6.3-8.2) g/dL Albumin 3.2 L (3.5-5.0) g/dL Arterial Blood Glucose (75-99) mg/dL Crossmatch 06/19/22 06/19/22 06/19/22 Range/Units 04:56 05:56 06:55 WBC (3.8-10.6) k/uL RBC (4.30-5.90) m/uL Hgb (13.0-17.5) gm/dL Hct (39.0-53.0) % Plt Count (150-450) k/uL Neutrophils # (1.3-7.7) k/uL Monocytes # (0-1.0) k/uL PT (9.0-12.0) sec INR (<1.2) ABG pH (7.35-7.45) ABG pCO2 (35-45) mmHg ABG pO2 (83-108) mmHg ABG Total CO2 (19-24) mmol/L ABG O2 Saturation (94-97) % ABG Hematocrit (34.0-46.0) % ABG Ionized Calcium (4.5-5.3) mg/dL ABG Glucose (75-99) mg/dL ABG Lactic Acid (0.5-1.6) mmol/L Hemoglobin (13.0-17.5) gm/dL Sodium (137-145) mmol/L Chloride (98-107) mmol/L Glucose (74-99) mg/dL POC Glucose (mg/dL) 135 H 140 H 157 H (70-110) mg/dL Calcium (8.4-10.2) mg/dL Magnesium (1.6-2.3) mg/dL Alkaline Phosphatase (38-126) U/L Total Protein (6.3-8.2) g/dL Albumin (3.5-5.0) g/dL Arterial Blood Glucose (75-99) mg/dL Crossmatch 06/19/22 Range/Units 08:05 WBC (3.8-10.6) k/uL RBC (4.30-5.90) m/uL Hgb (13.0-17.5) gm/dL Hct (39.0-53.0) % Plt Count (150-450) k/uL Neutrophils # (1.3-7.7) k/uL Monocytes # (0-1.0) k/uL PT (9.0-12.0) sec INR (<1.2) ABG pH (7.35-7.45) ABG pCO2 (35-45) mmHg ABG pO2 (83-108) mmHg ABG Total CO2 (19-24) mmol/L ABG O2 Saturation (94-97) % ABG Hematocrit (34.0-46.0) % ABG Ionized Calcium (4.5-5.3) mg/dL ABG Glucose (75-99) mg/dL ABG Lactic Acid (0.5-1.6) mmol/L Hemoglobin (13.0-17.5) gm/dL Sodium (137-145) mmol/L Chloride (98-107) mmol/L Glucose (74-99) mg/dL POC Glucose (mg/dL) 135 H (70-110) mg/dL Calcium (8.4-10.2) mg/dL Magnesium (1.6-2.3) mg/dL Alkaline Phosphatase (38-126) U/L Total Protein (6.3-8.2) g/dL Albumin (3.5-5.0) g/dL Arterial Blood Glucose (75-99) mg/dL Crossmatch
[2022-06-19] MEDS: ASPIRIN 325 MG TAB PO SCH (08:42)
[2022-06-19] MEDS: ATORVASTATIN 40 MG TAB PO SCH (08:42)
[2022-06-19] MEDS: CLOPIDOGREL 75 MG TAB PO SCH (08:42)
[2022-06-19] MEDS: EZETIMIBE 10 MG TAB PO SCH (08:42)
[2022-06-19 08:56] LABS: Glucose,Whole Blood 231 mg/dL (70-110)
[2022-06-19] MEDS ORDERED: bisacodyL 10 MG SUPP RECTAL PRN (09:00)
[2022-06-19] MEDS ORDERED: PANTOPRAZOLE 40 MG/10 ML VIAL IVP SCH (09:00)
[2022-06-19] MEDS ORDERED: METOPROLOL TARTRATE 12.5 MG TAB PO SCH ×2 (09:00→16:00)
[2022-06-19] MEDS ORDERED: MAGNESIUM HYDROXIDE 2,400 MG/10 ML CUP PO PRN (09:00)
[2022-06-19 09:22] VITALS: BMI 29.2
[2022-06-19 10:11] LABS: Glucose,Whole Blood 180 mg/dL (70-110)
[2022-06-19 10:58] LABS: Glucose,Whole Blood 145 mg/dL (70-110)
--- NOTE | 2022-06-19 11:03 | P.PN ---
Subjective Progress Note Date: 06/19/22 Principal diagnosis: Status post off-pump CABG 4, left internal thoracic artery to diagonal to left internal mammary artery saphenous vein to posterior descending artery left radi al artery from aorta to ramus intermedius postoperative day #1 06/16/2022, the patient is doing well. No chest pain. No shortness of breath. Last bronchus spastic and wheezy compared to yesterday. The patient underwent spirometry yesterday and FEV1 is on that of 73% of predicted. He is currently on bronchodilators. He is also on IV Solu-Medrol. He was started on Levemir insulin 10 units along with that slight scale insulin coverage. No nausea. No chest pain. No significant shortness of breath. No cardiac arrhythmias. He remains on IV heparin. 06/17/2022, no complaints and the patient is doing well. Overnight, he did have some limited chest pain which subsequently subsided and the patient remains on IV heparin. He is less bronchospastic and wheezy. I will also take him off the IV Solu-Medrol and put him on DuoNeb nebulized treatments around the clock. He is using incentive spirometer. He was given Levemir insulin for high blood sugar control due to steroid intake. This can be also discontinued. The patient is ready for surgery to be done on 06/18/2022. This will include coronary artery bypass surgery. Patient was reevaluated today on 06/18/2022, patient is now status post off-pump CABG 4 vessel. He is on mechanical ventilation, he is on assist control rate of 14, volume 500 FiO2 100% and PEEP of 5. ABG showed a pO2 of over 400 with normal acid base status and normal pCO2, and his FiO2 was cut down to 40%. Patient is on nitroglycerin drip at 5 mcg/m, is also on insulin drip at 1 unit per hour, propofol 20 mcg/kg/m. He is not requiring any inotropes or pressors. His cardiac output is 4.1 and cardiac index is 2.1. Chest x-ray showed no evidence of acute process, lines and catheters seem to be all in the proper position. Reevaluated today on 06/19/2022, patient is now postoperative day #1. Patient is sitting in a recliner, he was extubated yesterday at 16:12, patient is doing great, tolerated the extubation well. Apparently he had a brief episode of second degree AV block yesterday, hence IV Cardizem was discontinued and the patient is in sinus rhythm at present. Remains on IV nitro. Pain seems to be fairly well controlled. Chest x-ray showed minimal atelectasis which is expected. is doing poorly with incentive spirometry but improving steadily. He is achieving no more than 750 ML. Urine output is excellent. Lines and catheters were all noted. Including right IJ Winthrop-Ruperto catheter right radial arterial line mediastinal right and left pleural chest tubes. CBC is relatively normal, electrolytes and renal profile are normal O Objective - Vital Signs Vital signs: Vital Signs Temp 98.4 F 06/19/22 04:00 Pulse 82 06/19/22 09:30 Resp 17 06/19/22 09:30 BP 120/63 06/19/22 09:00 Pulse Ox 95 06/19/22 09:30 FiO2 40 06/18/22 15:28 Intake & Output 06/18/22 06/19/22 06/19/22 18:59 06:59 18:59 Intake Total 614.222 949.442 496.974 Output Total 2337 1752 127 Balance -1722.778 -802.558 369.974 Weight 87.1 kg 87.1 kg Intake: IV 581.5 873.5 102 ACETAMINOPHEN IV (For NPO 100 ) 1,000 mg In Empty Bag 1 bag @ 400 mls/hr IVPB Q6HR BETHANIE Rx#:[id number] CO/CI 80 130 Diltiazem 125 mg In 25 5 Sodium Chloride 0.9% 100 ml @ 5 MG/HR 5 mls/hr IV .Q24H ONE Rx#:[id number] Lactated Ringers 1,000 ml 220 620 40 @ 20 mls/hr IV .Q24H BETHANIE Rx#:[id number] Nitroglycerin-D5w Pmx 50 7.5 1.5 mg In Dextrose/Water 1 250ml.bag @ 5 MCG/MIN 1.5 mls/hr IV .Q24H BETHANIE Rx#: [id number] PRESSURE BAG 45 117 12 ceFAZolin 2 gm In Sodium 100 50 Chloride 0.9% 50 ml @ 100 mls/hr IVPB Q8HR BETHANIE Rx# :[id number] Intake, IV Titration 32.722 75.942 14.974 Amount Clevidipine Butyrate 25 1.267 19.267 mg In Empty Bag 1 bag @ 1 MG/HR 2 mls/hr IV .Q24H BETHANIE Rx#:[id number] Diltiazem 125 mg In 29.833 Sodium Chloride 0.9% 100 ml @ 5 MG/HR 5 mls/hr IV .Q24H BETHANIE Rx#:[id number] Insulin Regular 100 unit 9.630 26.842 14.974 In Sodium Chloride 0.9% 100 ml @ Per Protocol IV .Q0M B[facility]ANIE Rx#:[id number] propofoL 1,000 mg In 21.825 Empty Bag 1 bag @ Titrate IV .Q0M BETHANIE Rx#: [id number] Oral 380 Output: Chest Tube Drainage 275 472 50 Chest Tube Mediastinal 115 256 30 Right/Left 160 216 20 Urine 1462 1280 77 Estimated Blood Loss 600 Other: Voiding Method Indwelling Catheter Indwelling Catheter ABP, PAP, CO, CI - Last Documented Arterial Blood Pressure 113/98 Pulmonary Artery Pressure 24/11 Cardiac Output 3.4 Cardiac Index 6.7 - Exam Physical Exam: Revealed a 67-year-old white male in no distress, on few liters nasal cannula O2 saturation is 96%. Head: Atraumatic, normocephalic. HEENT:[Neck is supple.] [No neck masses.] [No thyromegaly.] [No JVD.] Chest: Symmetrical chest expansion, slightly diminished breath sounds at the bases Cardiac Exam: [Normal S1 and S2, no S3 gallop, 2/6 systolic murmur thought the precordium. Positive pericardial rub. Abdomen: [Soft, nontender, no megaly, no rebound, no guarding, normal bowel sounds.] Extremities: [No clubbing, no edema, no cyanosis.] Neurological Exam: Alert and oriented 3 focal neurologic deficit Psychiatric: Normal mood, affect and normal mental status examination Skin: No rashes. - Labs CBC & Chem 7: 06/19/22 03:55 06/19/22 03:55 Labs: Abnormal Lab Results - Last 24 Hours (Table) 06/17/22 06/18/22 06/18/22 Range/Units 08:11 08:42 10:28 WBC (3.8-10.6) k/uL RBC (4.30-5.90) m/uL Hgb (13.0-17.5) gm/dL Hct (39.0-53.0) % Plt Count (150-450) k/uL Neutrophils # (1.3-7.7) k/uL Monocytes # (0-1.0) k/uL PT (9.0-12.0) sec INR (<1.2) ABG pH (7.35-7.45) ABG pCO2 34 L (35-45) mmHg ABG pO2 340 H 151 H (83-108) mmHg ABG Total CO2 25 H (19-24) mmol/L ABG O2 Saturation 100.0 H 98.9 H (94-97) % ABG Hematocrit (34.0-46.0) % ABG Ionized Calcium (4.5-5.3) mg/dL ABG Glucose 137 H 171 H (75-99) mg/dL ABG Lactic Acid 1.9 H 1.7 H (0.5-1.6) mmol/L Hemoglobin 11.6 L 11.3 L (13.0-17.5) gm/dL Sodium (137-145) mmol/L Chloride (98-107) mmol/L Glucose (74-99) mg/dL POC Glucose (mg/dL) (70-110) mg/dL Calcium (8.4-10.2) mg/dL Magnesium (1.6-2.3) mg/dL Alkaline Phosphatase (38-126) U/L Total Protein (6.3-8.2) g/dL Albumin (3.5-5.0) g/dL Arterial Blood Glucose 137 H 171 H (75-99) mg/dL Crossmatch See Detail 06/18/22 06/18/22 06/18/22 Range/Units 11:29 12:33 12:44 WBC 11.0 H (3.8-10.6) k/uL RBC 3.15 L (4.30-5.90) m/uL Hgb 9.9 L D (13.0-17.5) gm/dL Hct 30.3 L (39.0-53.0) % Plt Count 141 L (150-450) k/uL Neutrophils # 8.0 H (1.3-7.7) k/uL Monocytes # (0-1.0) k/uL PT (9.0-12.0) sec INR (<1.2) ABG pH (7.35-7.45) ABG pCO2 33 L (35-45) mmHg ABG pO2 165 H (83-108) mmHg ABG Total CO2 (19-24) mmol/L ABG O2 Saturation 99.3 H 97.2 H (94-97) % ABG Hematocrit 32 L 31 L (34.0-46.0) % ABG Ionized Calcium 4.4 L (4.5-5.3) mg/dL ABG Glucose 151 H 126 H (75-99) mg/dL ABG Lactic Acid 2.4 H* 2.4 H* (0.5-1.6) mmol/L Hemoglobin 10.3 L 10.2 L (13.0-17.5) gm/dL Sodium (137-145) mmol/L Chloride (98-107) mmol/L Glucose (74-99) mg/dL POC Glucose (mg/dL) (70-110) mg/dL Calcium (8.4-10.2) mg/dL Magnesium (1.6-2.3) mg/dL Alkaline Phosphatase (38-126) U/L Total Protein (6.3-8.2) g/dL Albumin (3.5-5.0) g/dL Arterial Blood Glucose 151 H 126 H (75-99) mg/dL Crossmatch 06/18/22 06/18/22 06/18/22 Range/Units 12:44 12:44 13:16 WBC (3.8-10.6) k/uL RBC (4.30-5.90) m/uL Hgb (13.0-17.5) gm/dL Hct (39.0-53.0) % Plt Count (150-450) k/uL Neutrophils # (1.3-7.7) k/uL Monocytes # (0-1.0) k/uL PT 12.4 H (9.0-12.0) sec INR 1.2 H (<1.2) ABG pH (7.35-7.45) ABG pCO2 (35-45) mmHg ABG pO2 (83-108) mmHg ABG Total CO2 (19-24) mmol/L ABG O2 Saturation (94-97) % ABG Hematocrit (34.0-46.0) % ABG Ionized Calcium (4.5-5.3) mg/dL ABG Glucose (75-99) mg/dL ABG Lactic Acid (0.5-1.6) mmol/L Hemoglobin (13.0-17.5) gm/dL Sodium (137-145) mmol/L Chloride 109 H (98-107) mmol/L Glucose 114 H (74-99) mg/dL POC Glucose (mg/dL) 124 H (70-110) mg/dL Calcium 7.7 L (8.4-10.2) mg/dL Magnesium (1.6-2.3) mg/dL Alkaline Phosphatase 35 L (38-126) U/L Total Protein 4.5 L (6.3-8.2) g/dL Albumin 2.9 L (3.5-5.0) g/dL Arterial Blood Glucose (75-99) mg/dL Crossmatch 06/18/22 06/18/22 06/18/22 Range/Units 14:08 15:08 16:04 WBC (3.8-10.6) k/uL RBC (4.30-5.90) m/uL Hgb (13.0-17.5) gm/dL Hct (39.0-53.0) % Plt Count (150-450) k/uL Neutrophils # (1.3-7.7) k/uL Monocytes # (0-1.0) k/uL PT (9.0-12.0) sec INR (<1.2) ABG pH (7.35-7.45) ABG pCO2 (35-45) mmHg ABG pO2 (83-108) mmHg ABG Total CO2 (19-24) mmol/L ABG O2 Saturation (94-97) % ABG Hematocrit (34.0-46.0) % ABG Ionized Calcium (4.5-5.3) mg/dL ABG Glucose (75-99) mg/dL ABG Lactic Acid (0.5-1.6) mmol/L Hemoglobin (13.0-17.5) gm/dL Sodium (137-145) mmol/L Chloride (98-107) mmol/L Glucose (74-99) mg/dL POC Glucose (mg/dL) 134 H 154 H 193 H (70-110) mg/dL Calcium (8.4-10.2) mg/dL Magnesium (1.6-2.3) mg/dL Alkaline Phosphatase (38-126) U/L Total Protein (6.3-8.2) g/dL Albumin (3.5-5.0) g/dL Arterial Blood Glucose (75-99) mg/dL Crossmatch 06/18/22 06/18/22 06/18/22 Range/Units 16:05 17:12 17:15 WBC 16.2 H (3.8-10.6) k/uL RBC 3.49 L (4.30-5.90) m/uL Hgb 11.1 L (13.0-17.5) gm/dL Hct 33.2 L (39.0-53.0) % Plt Count (150-450) k/uL Neutrophils # 11.9 H (1.3-7.7) k/uL Monocytes # 1.4 H (0-1.0) k/uL PT (9.0-12.0) sec INR (<1.2) ABG pH 7.31 L (7.35-7.45) ABG pCO2 47 H (35-45) mmHg ABG pO2 72 L (83-108) mmHg ABG Total CO2 25 H (19-24) mmol/L ABG O2 Saturation 93.7 L (94-97) % ABG Hematocrit (34.0-46.0) % ABG Ionized Calcium (4.5-5.3) mg/dL ABG Glucose (75-99) mg/dL ABG Lactic Acid (0.5-1.6) mmol/L Hemoglobin (13.0-17.5) gm/dL Sodium (137-145) mmol/L Chloride (98-107) mmol/L Glucose (74-99) mg/dL POC Glucose (mg/dL) 158 H (70-110) mg/dL Calcium (8.4-10.2) mg/dL Magnesium (1.6-2.3) mg/dL Alkaline Phosphatase (38-126) U/L Total Protein (6.3-8.2) g/dL Albumin (3.5-5.0) g/dL Arterial Blood Glucose (75-99) mg/dL Crossmatch 06/18/22 06/18/22 06/18/22 Range/Units 18:10 18:57 20:04 WBC (3.8-10.6) k/uL RBC (4.30-5.90) m/uL Hgb (13.0-17.5) gm/dL Hct (39.0-53.0) % Plt Count (150-450) k/uL Neutrophils # (1.3-7.7) k/uL Monocytes # (0-1.0) k/uL PT (9.0-12.0) sec INR (<1.2) ABG pH (7.35-7.45) ABG pCO2 (35-45) mmHg ABG pO2 (83-108) mmHg ABG Total CO2 (19-24) mmol/L ABG O2 Saturation (94-97) % ABG Hematocrit (34.0-46.0) % ABG Ionized Calcium (4.5-5.3) mg/dL ABG Glucose (75-99) mg/dL ABG Lactic Acid (0.5-1.6) mmol/L Hemoglobin (13.0-17.5) gm/dL Sodium (137-145) mmol/L Chloride (98-107) mmol/L Glucose (74-99) mg/dL POC Glucose (mg/dL) 167 H 152 H 127 H (70-110) mg/dL Calcium (8.4-10.2) mg/dL Magnesium (1.6-2.3) mg/dL Alkaline Phosphatase (38-126) U/L Total Protein (6.3-8.2) g/dL Albumin (3.5-5.0) g/dL Arterial Blood Glucose (75-99) mg/dL Crossmatch 06/18/22 06/18/22 06/18/22 Range/Units 20:50 20:50 20:51 WBC (3.8-10.6) k/uL RBC 3.53 L (4.30-5.90) m/uL Hgb 11.1 L (13.0-17.5) gm/dL Hct 33.2 L (39.0-53.0) % Plt Count (150-450) k/uL Neutrophils # (1.3-7.7) k/uL Monocytes # (0-1.0) k/uL PT (9.0-12.0) sec INR (<1.2) ABG pH (7.35-7.45) ABG pCO2 (35-45) mmHg ABG pO2 (83-108) mmHg ABG Total CO2 (19-24) mmol/L ABG O2 Saturation (94-97) % ABG Hematocrit (34.0-46.0) % ABG Ionized Calcium (4.5-5.3) mg/dL ABG Glucose (75-99) mg/dL ABG Lactic Acid (0.5-1.6) mmol/L Hemoglobin (13.0-17.5) gm/dL Sodium 136 L (137-145) mmol/L Chloride (98-107) mmol/L Glucose 106 H (74-99) mg/dL POC Glucose (mg/dL) 114 H (70-110) mg/dL Calcium 8.1 L (8.4-10.2) mg/dL Magnesium 1.5 L (1.6-2.3) mg/dL Alkaline Phosphatase (38-126) U/L Total Protein (6.3-8.2) g/dL Albumin (3.5-5.0) g/dL Arterial Blood Glucose (75-99) mg/dL Crossmatch 06/18/22 06/18/22 06/18/22 Range/Units 21:57 23:11 23:55 WBC (3.8-10.6) k/uL RBC (4.30-5.90) m/uL Hgb (13.0-17.5) gm/dL Hct (39.0-53.0) % Plt Count (150-450) k/uL Neutrophils # (1.3-7.7) k/uL Monocytes # (0-1.0) k/uL PT (9.0-12.0) sec INR (<1.2) ABG pH (7.35-7.45) ABG pCO2 (35-45) mmHg ABG pO2 (83-108) mmHg ABG Total CO2 (19-24) mmol/L ABG O2 Saturation (94-97) % ABG Hematocrit (34.0-46.0) % ABG Ionized Calcium (4.5-5.3) mg/dL ABG Glucose (75-99) mg/dL ABG Lactic Acid (0.5-1.6) mmol/L Hemoglobin (13.0-17.5) gm/dL Sodium (137-145) mmol/L Chloride (98-107) mmol/L Glucose (74-99) mg/dL POC Glucose (mg/dL) 140 H 136 H 132 H (70-110) mg/dL Calcium (8.4-10.2) mg/dL Magnesium (1.6-2.3) mg/dL Alkaline Phosphatase (38-126) U/L Total Protein (6.3-8.2) g/dL Albumin (3.5-5.0) g/dL Arterial Blood Glucose (75-99) mg/dL Crossmatch 06/19/22 06/19/22 06/19/22 Range/Units 00:59 01:56 02:54 WBC (3.8-10.6) k/uL RBC (4.30-5.90) m/uL Hgb (13.0-17.5) gm/dL Hct (39.0-53.0) % Plt Count (150-450) k/uL Neutrophils # (1.3-7.7) k/uL Monocytes # (0-1.0) k/uL PT (9.0-12.0) sec INR (<1.2) ABG pH (7.35-7.45) ABG pCO2 (35-45) mmHg ABG pO2 (83-108) mmHg ABG Total CO2 (19-24) mmol/L ABG O2 Saturation (94-97) % ABG Hematocrit (34.0-46.0) % ABG Ionized Calcium (4.5-5.3) mg/dL ABG Glucose (75-99) mg/dL ABG Lactic Acid (0.5-1.6) mmol/L Hemoglobin (13.0-17.5) gm/dL Sodium (137-145) mmol/L Chloride (98-107) mmol/L Glucose (74-99) mg/dL POC Glucose (mg/dL) 113 H 117 H 136 H (70-110) mg/dL Calcium (8.4-10.2) mg/dL Magnesium (1.6-2.3) mg/dL Alkaline Phosphatase (38-126) U/L Total Protein (6.3-8.2) g/dL Albumin (3.5-5.0) g/dL Arterial Blood Glucose (75-99) mg/dL Crossmatch 06/19/22 06/19/22 06/19/22 Range/Units 03:50 03:55 03:55 WBC (3.8-10.6) k/uL RBC 3.50 L (4.30-5.90) m/uL Hgb 11.0 L (13.0-17.5) gm/dL Hct 33.2 L (39.0-53.0) % Plt Count (150-450) k/uL Neutrophils # (1.3-7.7) k/uL Monocytes # (0-1.0) k/uL PT (9.0-12.0) sec INR (<1.2) ABG pH (7.35-7.45) ABG pCO2 (35-45) mmHg ABG pO2 (83-108) mmHg ABG Total CO2 (19-24) mmol/L ABG O2 Saturation (94-97) % ABG Hematocrit (34.0-46.0) % ABG Ionized Calcium (4.5-5.3) mg/dL ABG Glucose (75-99) mg/dL ABG Lactic Acid (0.5-1.6) mmol/L Hemoglobin (13.0-17.5) gm/dL Sodium 133 L (137-145) mmol/L Chloride (98-107) mmol/L Glucose 127 H (74-99) mg/dL POC Glucose (mg/dL) 137 H (70-110) mg/dL Calcium 7.8 L (8.4-10.2) mg/dL Magnesium (1.6-2.3) mg/dL Alkaline Phosphatase (38-126) U/L Total Protein 4.9 L (6.3-8.2) g/dL Albumin 3.2 L (3.5-5.0) g/dL Arterial Blood Glucose (75-99) mg/dL Crossmatch 06/19/22 06/19/22 06/19/22 Range/Units 04:56 05:56 06:55 WBC (3.8-10.6) k/uL RBC (4.30-5.90) m/uL Hgb (13.0-17.5) gm/dL Hct (39.0-53.0) % Plt Count (150-450) k/uL Neutrophils # (1.3-7.7) k/uL Monocytes # (0-1.0) k/uL PT (9.0-12.0) sec INR (<1.2) ABG pH (7.35-7.45) ABG pCO2 (35-45) mmHg ABG pO2 (83-108) mmHg ABG Total CO2 (19-24) mmol/L ABG O2 Saturation (94-97) % ABG Hematocrit (34.0-46.0) % ABG Ionized Calcium (4.5-5.3) mg/dL ABG Glucose (75-99) mg/dL ABG Lactic Acid (0.5-1.6) mmol/L Hemoglobin (13.0-17.5) gm/dL Sodium (137-145) mmol/L Chloride (98-107) mmol/L Glucose (74-99) mg/dL POC Glucose (mg/dL) 135 H 140 H 157 H (70-110) mg/dL Calcium (8.4-10.2) mg/dL Magnesium (1.6-2.3) mg/dL Alkaline Phosphatase (38-126) U/L Total Protein (6.3-8.2) g/dL Albumin (3.5-5.0) g/dL Arterial Blood Glucose (75-99) mg/dL Crossmatch 06/19/22 06/19/22 06/19/22 Range/Units 08:05 08:55 10:09 WBC (3.8-10.6) k/uL RBC (4.30-5.90) m/uL Hgb (13.0-17.5) gm/dL Hct (39.0-53.0) % Plt Count (150-450) k/uL Neutrophils # (1.3-7.7) k/uL Monocytes # (0-1.0) k/uL PT (9.0-12.0) sec INR (<1.2) ABG pH (7.35-7.45) ABG pCO2 (35-45) mmHg ABG pO2 (83-108) mmHg ABG Total CO2 (19-24) mmol/L ABG O2 Saturation (94-97) % ABG Hematocrit (34.0-46.0) % ABG Ionized Calcium (4.5-5.3) mg/dL ABG Glucose (75-99) mg/dL ABG Lactic Acid (0.5-1.6) mmol/L Hemoglobin (13.0-17.5) gm/dL Sodium (137-145) mmol/L Chloride (98-107) mmol/L Glucose (74-99) mg/dL POC Glucose (mg/dL) 135 H 231 H 180 H (70-110) mg/dL Calcium (8.4-10.2) mg/dL Magnesium (1.6-2.3) mg/dL Alkaline Phosphatase (38-126) U/L Total Protein (6.3-8.2) g/dL Albumin (3.5-5.0) g/dL Arterial Blood Glucose (75-99) mg/dL Crossmatch Assessment and Plan Assessment: Impression: Status post off-pump CABG 4 vessel, postoperative day #1 Symptomatic multivessel coronary artery disease Acute non-ST segment elevation myocardial infarction Mild ischemic cardiomyopathy and LV dysfunction with ejection fraction of 45-50% Underlying COPD, FEV1 is 70% of the predicted value. Type 2 diabetes. Benign essential hypertension. Dyslipidemia. History of smoking. Recommendation: Continue to maximize medical therapy, patient is on aspirin statins and Plavix and beta blockers Continue to encourage incentive spirometry Ambulate Discontinue unnecessary catheters and lines. Continue GI and DVT prophylaxis Continue insulin and adjust accordingly. Continue bronchodilators Encouraged to stop smoking We will continue to follow Time with Patient: Less than 30
[2022-06-19 12:25] LABS: Glucose,Whole Blood 145 mg/dL (70-110)
[2022-06-19] MEDS: amLODIPine 2.5 MG TAB PO SCH (12:38)
--- NOTE | 2022-06-19 12:47 | P.PN ---
Subjective Progress Note Date: 06/19/22 Patient is doing well s/p CABG. Seen up and ambulating in the hallway. No complaints, in good spirits. Gen: awake, alert HEENT: normocephalic, atraumatic, good hearing acuity, moist mucous membranes Resp: good air exchange, breathing comfortably with no accessory muscle use CVS: good distal perfusion x 4, GI: soft, NTTP, ND : no SPT, no CVAT, caal catheter not present MSK: no pitting edema, no clubbing Neuro: non-focal, moving all extremities Psych: cooperative, euthymic mood Assessment/plan: Unstable angina Multivessel coronary artery disease -Daily EKGs -Cardiology consult -Echocardiogram -Resume aspirin and statin -CT surgery consult -strict BS control to encourage healing post-op Hypomagnesemia -Replete as needed Suspect underlying COPD -DuoNeb as needed Chronic issues Hypertension Diabetes Hyperlipidemia Tobacco abuse -Resume home meds when available -Hold oral hypoglycemic agents and start Sliding-scale insulin and long-acting insulin -Nicotine patch, patient counseled on smoking cessation CODE STATUS:full code DVT prophylaxis: Heparin drip Objective - Vital Signs Vital signs: Vital Signs Temp 98.4 F 06/19/22 04:00 Pulse 92 06/19/22 11:36 Resp 18 06/19/22 11:00 BP 105/65 06/19/22 11:00 Pulse Ox 93 L 06/19/22 11:00 FiO2 40 06/18/22 15:28 Intake & Output 06/18/22 06/19/22 06/19/22 18:59 06:59 18:59 Intake Total 614.222 949.442 550.940 Output Total 2337 1752 266 Balance -1722.778 -802.558 284.940 Weight 87.1 kg 87.1 kg Intake: IV 581.5 873.5 151 ACETAMINOPHEN IV (For NPO 100 ) 1,000 mg In Empty Bag 1 bag @ 400 mls/hr IVPB Q6HR [facility] Rx#:[id number] CO/CI 80 130 Diltiazem 125 mg In 25 5 Sodium Chloride 0.9% 100 ml @ 5 MG/HR 5 mls/hr IV .Q24H [facility] Rx#:[id number] Lactated Ringers 1,000 ml 220 620 80 @ 20 mls/hr IV .Q24H [facility] Rx#:[id number] Nitroglycerin-D5w Pmx 50 7.5 1.5 mg In Dextrose/Water 1 250ml.bag @ 5 MCG/MIN 1.5 mls/hr IV .Q24H [facility] Rx#: [id number] PRESSURE BAG 45 117 21 ceFAZolin 2 gm In Sodium 100 50 Chloride 0.9% 50 ml @ 100 mls/hr IVPB Q8HR [facility] Rx# :[id number] Intake, IV Titration 32.722 75.942 19.940 Amount Clevidipine Butyrate 25 1.267 19.267 mg In Empty Bag 1 bag @ 1 MG/HR 2 mls/hr IV .Q24H [facility] Rx#:[id number] Diltiazem 125 mg In 29.833 Sodium Chloride 0.9% 100 ml @ 5 MG/HR 5 mls/hr IV .Q24H [facility] Rx#:[id number] Insulin Regular 100 unit 9.630 26.842 19.940 In Sodium Chloride 0.9% 100 ml @ Per Protocol IV .Q0M [facility] Rx#:[id number] propofoL 1,000 mg In 21.825 Empty Bag 1 bag @ Titrate IV .Q0M [facility] Rx#: [id number] Oral 380 Output: Chest Tube Drainage 275 472 110 Chest Tube Mediastinal 115 256 70 Right/Left 160 216 40 Urine 1462 1280 156 Estimated Blood Loss 600 Other: Voiding Method Indwelling Catheter Indwelling Catheter Indwelling Catheter ABP, PAP, CO, CI - Last Documented Arterial Blood Pressure 113/98 Pulmonary Artery Pressure 25/13 Cardiac Output 3.4 Cardiac Index 6.7 - Labs CBC & Chem 7: 06/19/22 03:55 06/19/22 03:55 Labs: Abnormal Lab Results - Last 24 Hours (Table) 06/17/22 06/18/22 06/18/22 Range/Units 08:11 12:44 12:44 WBC 11.0 H (3.8-10.6) k/uL RBC 3.15 L (4.30-5.90) m/uL Hgb 9.9 L D (13.0-17.5) gm/dL Hct 30.3 L (39.0-53.0) % Plt Count 141 L (150-450) k/uL Neutrophils # 8.0 H (1.3-7.7) k/uL Monocytes # (0-1.0) k/uL PT 12.4 H (9.0-12.0) sec INR 1.2 H (<1.2) ABG pH (7.35-7.45) ABG pCO2 (35-45) mmHg ABG pO2 (83-108) mmHg ABG Total CO2 (19-24) mmol/L ABG O2 Saturation (94-97) % Sodium (137-145) mmol/L Chloride (98-107) mmol/L Glucose (74-99) mg/dL POC Glucose (mg/dL) (70-110) mg/dL Calcium (8.4-10.2) mg/dL Magnesium (1.6-2.3) mg/dL Alkaline Phosphatase (38-126) U/L Total Protein (6.3-8.2) g/dL Albumin (3.5-5.0) g/dL Crossmatch See Detail 06/18/22 06/18/22 06/18/22 Range/Units 12:44 13:16 14:08 WBC (3.8-10.6) k/uL RBC (4.30-5.90) m/uL Hgb (13.0-17.5) gm/dL Hct (39.0-53.0) % Plt Count (150-450) k/uL Neutrophils # (1.3-7.7) k/uL Monocytes # (0-1.0) k/uL PT (9.0-12.0) sec INR (<1.2) ABG pH (7.35-7.45) ABG pCO2 (35-45) mmHg ABG pO2 (83-108) mmHg ABG Total CO2 (19-24) mmol/L ABG O2 Saturation (94-97) % Sodium (137-145) mmol/L Chloride 109 H (98-107) mmol/L Glucose 114 H (74-99) mg/dL POC Glucose (mg/dL) 124 H 134 H (70-110) mg/dL Calcium 7.7 L (8.4-10.2) mg/dL Magnesium (1.6-2.3) mg/dL Alkaline Phosphatase 35 L (38-126) U/L Total Protein 4.5 L (6.3-8.2) g/dL Albumin 2.9 L (3.5-5.0) g/dL Crossmatch 06/18/22 06/18/22 06/18/22 Range/Units 15:08 16:04 16:05 WBC (3.8-10.6) k/uL RBC (4.30-5.90) m/uL Hgb (13.0-17.5) gm/dL Hct (39.0-53.0) % Plt Count (150-450) k/uL Neutrophils # (1.3-7.7) k/uL Monocytes # (0-1.0) k/uL PT (9.0-12.0) sec INR (<1.2) ABG pH 7.31 L (7.35-7.45) ABG pCO2 47 H (35-45) mmHg ABG pO2 72 L (83-108) mmHg ABG Total CO2 25 H (19-24) mmol/L ABG O2 Saturation 93.7 L (94-97) % Sodium (137-145) mmol/L Chloride (98-107) mmol/L Glucose (74-99) mg/dL POC Glucose (mg/dL) 154 H 193 H (70-110) mg/dL Calcium (8.4-10.2) mg/dL Magnesium (1.6-2.3) mg/dL Alkaline Phosphatase (38-126) U/L Total Protein (6.3-8.2) g/dL Albumin (3.5-5.0) g/dL Crossmatch 06/18/22 06/18/22 06/18/22 Range/Units 17:12 17:15 18:10 WBC 16.2 H (3.8-10.6) k/uL RBC 3.49 L (4.30-5.90) m/uL Hgb 11.1 L (13.0-17.5) gm/dL Hct 33.2 L (39.0-53.0) % Plt Count (150-450) k/uL Neutrophils # 11.9 H (1.3-7.7) k/uL Monocytes # 1.4 H (0-1.0) k/uL PT (9.0-12.0) sec INR (<1.2) ABG pH (7.35-7.45) ABG pCO2 (35-45) mmHg ABG pO2 (83-108) mmHg ABG Total CO2 (19-24) mmol/L ABG O2 Saturation (94-97) % Sodium (137-145) mmol/L Chloride (98-107) mmol/L Glucose (74-99) mg/dL POC Glucose (mg/dL) 158 H 167 H (70-110) mg/dL Calcium (8.4-10.2) mg/dL Magnesium (1.6-2.3) mg/dL Alkaline Phosphatase (38-126) U/L Total Protein (6.3-8.2) g/dL Albumin (3.5-5.0) g/dL Crossmatch 06/18/22 06/18/22 06/18/22 Range/Units 18:57 20:04 20:50 WBC (3.8-10.6) k/uL RBC (4.30-5.90) m/uL Hgb (13.0-17.5) gm/dL Hct (39.0-53.0) % Plt Count (150-450) k/uL Neutrophils # (1.3-7.7) k/uL Monocytes # (0-1.0) k/uL PT (9.0-12.0) sec INR (<1.2) ABG pH (7.35-7.45) ABG pCO2 (35-45) mmHg ABG pO2 (83-108) mmHg ABG Total CO2 (19-24) mmol/L ABG O2 Saturation (94-97) % Sodium 136 L (137-145) mmol/L Chloride (98-107) mmol/L Glucose 106 H (74-99) mg/dL POC Glucose (mg/dL) 152 H 127 H (70-110) mg/dL Calcium 8.1 L (8.4-10.2) mg/dL Magnesium 1.5 L (1.6-2.3) mg/dL Alkaline Phosphatase (38-126) U/L Total Protein (6.3-8.2) g/dL Albumin (3.5-5.0) g/dL Crossmatch 06/18/22 06/18/22 06/18/22 Range/Units 20:50 20:51 21:57 WBC (3.8-10.6) k/uL RBC 3.53 L (4.30-5.90) m/uL Hgb 11.1 L (13.0-17.5) gm/dL Hct 33.2 L (39.0-53.0) % Plt Count (150-450) k/uL Neutrophils # (1.3-7.7) k/uL Monocytes # (0-1.0) k/uL PT (9.0-12.0) sec INR (<1.2) ABG pH (7.35-7.45) ABG pCO2 (35-45) mmHg ABG pO2 (83-108) mmHg ABG Total CO2 (19-24) mmol/L ABG O2 Saturation (94-97) % Sodium (137-145) mmol/L Chloride (98-107) mmol/L Glucose (74-99) mg/dL POC Glucose (mg/dL) 114 H 140 H (70-110) mg/dL Calcium (8.4-10.2) mg/dL Magnesium (1.6-2.3) mg/dL Alkaline Phosphatase (38-126) U/L Total Protein (6.3-8.2) g/dL Albumin (3.5-5.0) g/dL Crossmatch 06/18/22 06/18/22 06/19/22 Range/Units 23:11 23:55 00:59 WBC (3.8-10.6) k/uL RBC (4.30-5.90) m/uL Hgb (13.0-17.5) gm/dL Hct (39.0-53.0) % Plt Count (150-450) k/uL Neutrophils # (1.3-7.7) k/uL Monocytes # (0-1.0) k/uL PT (9.0-12.0) sec INR (<1.2) ABG pH (7.35-7.45) ABG pCO2 (35-45) mmHg ABG pO2 (83-108) mmHg ABG Total CO2 (19-24) mmol/L ABG O2 Saturation (94-97) % Sodium (137-145) mmol/L Chloride (98-107) mmol/L Glucose (74-99) mg/dL POC Glucose (mg/dL) 136 H 132 H 113 H (70-110) mg/dL Calcium (8.4-10.2) mg/dL Magnesium (1.6-2.3) mg/dL Alkaline Phosphatase (38-126) U/L Total Protein (6.3-8.2) g/dL Albumin (3.5-5.0) g/dL Crossmatch 06/19/22 06/19/22 06/19/22 Range/Units 01:56 02:54 03:50 WBC (3.8-10.6) k/uL RBC (4.30-5.90) m/uL Hgb (13.0-17.5) gm/dL Hct (39.0-53.0) % Plt Count (150-450) k/uL Neutrophils # (1.3-7.7) k/uL Monocytes # (0-1.0) k/uL PT (9.0-12.0) sec INR (<1.2) ABG pH (7.35-7.45) ABG pCO2 (35-45) mmHg ABG pO2 (83-108) mmHg ABG Total CO2 (19-24) mmol/L ABG O2 Saturation (94-97) % Sodium (137-145) mmol/L Chloride (98-107) mmol/L Glucose (74-99) mg/dL POC Glucose (mg/dL) 117 H 136 H 137 H (70-110) mg/dL Calcium (8.4-10.2) mg/dL Magnesium (1.6-2.3) mg/dL Alkaline Phosphatase (38-126) U/L Total Protein (6.3-8.2) g/dL Albumin (3.5-5.0) g/dL Crossmatch 06/19/22 06/19/22 06/19/22 Range/Units 03:55 03:55 04:56 WBC (3.8-10.6) k/uL RBC 3.50 L (4.30-5.90) m/uL Hgb 11.0 L (13.0-17.5) gm/dL Hct 33.2 L (39.0-53.0) % Plt Count (150-450) k/uL Neutrophils # (1.3-7.7) k/uL Monocytes # (0-1.0) k/uL PT (9.0-12.0) sec INR (<1.2) ABG pH (7.35-7.45) ABG pCO2 (35-45) mmHg ABG pO2 (83-108) mmHg ABG Total CO2 (19-24) mmol/L ABG O2 Saturation (94-97) % Sodium 133 L (137-145) mmol/L Chloride (98-107) mmol/L Glucose 127 H (74-99) mg/dL POC Glucose (mg/dL) 135 H (70-110) mg/dL Calcium 7.8 L (8.4-10.2) mg/dL Magnesium (1.6-2.3) mg/dL Alkaline Phosphatase (38-126) U/L Total Protein 4.9 L (6.3-8.2) g/dL Albumin 3.2 L (3.5-5.0) g/dL Crossmatch 06/19/22 06/19/22 06/19/22 Range/Units 05:56 06:55 08:05 WBC (3.8-10.6) k/uL RBC (4.30-5.90) m/uL Hgb (13.0-17.5) gm/dL Hct (39.0-53.0) % Plt Count (150-450) k/uL Neutrophils # (1.3-7.7) k/uL Monocytes # (0-1.0) k/uL PT (9.0-12.0) sec INR (<1.2) ABG pH (7.35-7.45) ABG pCO2 (35-45) mmHg ABG pO2 (83-108) mmHg ABG Total CO2 (19-24) mmol/L ABG O2 Saturation (94-97) % Sodium (137-145) mmol/L Chloride (98-107) mmol/L Glucose (74-99) mg/dL POC Glucose (mg/dL) 140 H 157 H 135 H (70-110) mg/dL Calcium (8.4-10.2) mg/dL Magnesium (1.6-2.3) mg/dL Alkaline Phosphatase (38-126) U/L Total Protein (6.3-8.2) g/dL Albumin (3.5-5.0) g/dL Crossmatch 06/19/22 06/19/22 06/19/22 Range/Units 08:55 10:09 10:57 WBC (3.8-10.6) k/uL RBC (4.30-5.90) m/uL Hgb (13.0-17.5) gm/dL Hct (39.0-53.0) % Plt Count (150-450) k/uL Neutrophils # (1.3-7.7) k/uL Monocytes # (0-1.0) k/uL PT (9.0-12.0) sec INR (<1.2) ABG pH (7.35-7.45) ABG pCO2 (35-45) mmHg ABG pO2 (83-108) mmHg ABG Total CO2 (19-24) mmol/L ABG O2 Saturation (94-97) % Sodium (137-145) mmol/L Chloride (98-107) mmol/L Glucose (74-99) mg/dL POC Glucose (mg/dL) 231 H 180 H 145 H (70-110) mg/dL Calcium (8.4-10.2) mg/dL Magnesium (1.6-2.3) mg/dL Alkaline Phosphatase (38-126) U/L Total Protein (6.3-8.2) g/dL Albumin (3.5-5.0) g/dL Crossmatch 06/19/22 Range/Units 12:24 WBC (3.8-10.6) k/uL RBC (4.30-5.90) m/uL Hgb (13.0-17.5) gm/dL Hct (39.0-53.0) % Plt Count (150-450) k/uL Neutrophils # (1.3-7.7) k/uL Monocytes # (0-1.0) k/uL PT (9.0-12.0) sec INR (<1.2) ABG pH (7.35-7.45) ABG pCO2 (35-45) mmHg ABG pO2 (83-108) mmHg ABG Total CO2 (19-24) mmol/L ABG O2 Saturation (94-97) % Sodium (137-145) mmol/L Chloride (98-107) mmol/L Glucose (74-99) mg/dL POC Glucose (mg/dL) 145 H (70-110) mg/dL Calcium (8.4-10.2) mg/dL Magnesium (1.6-2.3) mg/dL Alkaline Phosphatase (38-126) U/L Total Protein (6.3-8.2) g/dL Albumin (3.5-5.0) g/dL Crossmatch
[2022-06-19 13:05] LABS: Glucose,Whole Blood 155 mg/dL (70-110)
[2022-06-19 14:14] LABS: Glucose,Whole Blood 143 mg/dL (70-110)
[2022-06-19 15:07] LABS: Glucose,Whole Blood 134 mg/dL (70-110)
[2022-06-19] MEDS: INSULIN REGULAR 100 UNIT in SODIUM CHLORIDE 0.9% 100 ML IV SCH (15:15)
[2022-06-19 16:17] LABS: Glucose,Whole Blood 115 mg/dL (70-110)
[2022-06-19 18:10] LABS: Glucose,Whole Blood 114 mg/dL (70-110)
[2022-06-19 19:04] LABS: Glucose,Whole Blood 163 mg/dL (70-110)
[2022-06-19 20:39] LABS: Glucose,Whole Blood 184 mg/dL (70-110)
[2022-06-19] MEDS: SENNOSIDES-DOCUSATE SODIUM 1 EACH TAB PO SCH (21:12)
[2022-06-19] MEDS: METOPROLOL TARTRATE 25 MG TAB PO SCH (21:12)
[2022-06-19 21:28] LABS: Glucose,Whole Blood 172 mg/dL (70-110)
[2022-06-19 21:44] LABS: Phosphorus 2.8 mg/dL (2.5-4.5); Potassium 3.7 mmol/L (3.5-5.1)
[2022-06-19 21:47] LABS: Ionized Calcium 4.7 mg/dL (4.5-5.3)
[2022-06-19] MEDS ORDERED: POTASSIUM CHLORIDE ER 20 MEQ TAB.ER PO SCH (22:00)
[2022-06-19 22:26] LABS: Glucose,Whole Blood 126 mg/dL (70-110)
[2022-06-19 23:47] LABS: Glucose,Whole Blood 104 mg/dL (70-110)
[2022-06-20 00:49] LABS: Glucose,Whole Blood 124 mg/dL (70-110)
[2022-06-20 01:32] LABS: Glucose,Whole Blood 131 mg/dL (70-110)
[2022-06-20 03:02] LABS: Glucose,Whole Blood 128 mg/dL (70-110)
[2022-06-20 04:06] LABS: Glucose,Whole Blood 140 mg/dL (70-110)
[2022-06-20 04:59] LABS: Glucose,Whole Blood 105 mg/dL (70-110)
[2022-06-20 05:13] LABS: Basophils % (A) 0 %; Eosinophils # (A) 0.1 k/uL (0-0.7); Eosinophils % (A) 1 %; HCT 32.1 % (39.0-53.0); HGB 10.6 gm/dL (13.0-17.5); Lymphocytes % (A) 10 %; MCH 31.5 pg (25.0-35.0); MCHC 32.9 g/dL (31.0-37.0); MCV 95.8 fL (80.0-100.0); Mean Platelet Volume 8.3; Monocytes # (A) 0.7 k/uL (0-1.0); Monocytes % (A) 8 %; Neutrophils # (A) 7.7 k/uL (1.3-7.7); Neutrophils % (A) 80 %; Platelet Count 142 k/uL (150-450); RBC 3.35 m/uL (4.30-5.90); RDW 12.9 % (11.5-15.5); WBC 9.6 k/uL (3.8-10.6)
[2022-06-20 05:37] LABS: Ionized Calcium 4.8 mg/dL (4.5-5.3)
[2022-06-20 05:46] LABS: ALT 19 U/L (4-49); AST 32 U/L (17-59); African American GFR (CKD) >90 (>60 ml/min/1.73 sqM); Albumin 3.1 g/dL (3.5-5.0); Alkaline Phosphatase 54 U/L (38-126); Anion Gap 6 mmol/L; Blood Urea Nitrogen 11 mg/dL (9-20); Calcium 7.9 mg/dL (8.4-10.2); Carbon Dioxide 25 mmol/L (22-30); Chloride 104 mmol/L (98-107); Glucose 99 mg/dL (74-99); Magnesium 1.9 mg/dL (1.6-2.3); Non-African American GFR(CKD) >90 (>60 ml/min/1.73 sqM); Potassium 4.2 mmol/L (3.5-5.1); Sodium 135 mmol/L (137-145)
[2022-06-20 06:01] LABS: Glucose,Whole Blood 122 mg/dL (70-110)
[2022-06-20] MEDS: HYDROcodone/APAP 5-325MG 1 EACH TAB PO PRN (06:01)
[2022-06-20] MEDS: KETOROLAC 15 MG/ML 1 ML VIAL IVP SCH ×4 (06:02→23:15)
[2022-06-20] MEDS: MAGNESIUM SULFATE-D5W PMX 1 GM in DEXTROSE/WATER 1 100ML.BAG IVPB SCH ×2 (06:02→07:12)
[2022-06-20 07:09] LABS: Glucose,Whole Blood 165 mg/dL (70-110)
[2022-06-20] MEDS: PANTOPRAZOLE 40 MG TABLET PO SCH (07:12)
--- NOTE | 2022-06-20 07:42 | P.PN ---
Subjective Progress Note Date: 06/20/22 Principal diagnosis: Triple-vessel coronary artery disease with left main disease, non-STEMI this admission. Previous medical history PCI x2, hypertension, hyperlipidemia, mzm-hynqtmf-zabdzyrfu diabetes, current tobacco dependence, mild COPD, peripheral arterial disease with left lower extremity stenting, and family history of premature coronary artery disease with father having 3 vessel CABG at 47 years old POD #2 off-pump coronary artery bypass grafting 4, left internal thoracic artery sequentially to the diagonal then left anterior descending coronary artery, left radial artery from the aorta to the ramus intermedius, reverse saphenous vein graft to the posterior descending artery, endoscopic left radial and bilateral greater saphenous vein harvest, left atrial appendage ligation with #35 mm AtriCure clip, intraoperative transesophageal echocardiogram Postoperative atrial fibrillation, known common occurrence after open heart surgery The patient was seen and examined this morning sitting up in a recliner in no acute distress eating breakfast. Currently in atrial fibrillation, hemodynamically stable on no inotropes or pressors. Patient had multiple solo ges in his heart rhythm last night going from sinus rhythm to atrial fibrillation to secondary heart block to sinus pauses. Electrolytes were checked and replaced. Beta lidya was increased last night. Patient has remained asymptomatic, blood pressure stable throughout. Patient states postsurgical pain controlled on current medication regimen, denies shortness of breath. Currently on 3 L nasal cannula with oxygen saturation in the mid 90s, only able to achieve 750 mL on incentive spirometry. Urine output stable. Patient has been ambulatory in the hallway without difficulty. Right internal jugular Cordis, mediastinal/right/left pleural chest tubes all remain. No other new concerns. Objective - Vital Signs Vital signs: Vital Signs Temp 98.7 F 06/20/22 04:00 Pulse 96 06/20/22 07:00 Resp 24 06/20/22 07:00 BP 112/75 06/20/22 06:30 Pulse Ox 95 06/20/22 07:00 FiO2 40 06/18/22 15:28 Intake & Output 06/19/22 06/20/22 06/20/22 18:59 06:59 18:59 Intake Total 734.413 588.733 2.458 Output Total 921 1760 Balance -186.587 -1171.267 2.458 Weight 87.1 kg 90.2 kg Intake: IV 312 376 Lactated Ringers 1,000 ml 220 240 @ 20 mls/hr IV .Q24H [facility] Rx#:[id number] Magnesium Sulfate-D5w Pmx 100 1 gm In Dextrose/Water 1 100ml.bag @ 100 mls/hr IVPB Q1H [facility] Rx#: [id number] PRESSURE BAG 42 36 ceFAZolin 2 gm In Sodium 50 Chloride 0.9% 50 ml @ 100 mls/hr IVPB Q8HR [facility] Rx# :[id number] Intake, IV Titration 42.413 32.733 2.458 Amount Insulin Regular 100 unit 42.413 32.733 2.458 In Sodium Chloride 0.9% 100 ml @ Per Protocol IV .Q0M [facility] Rx#:[id number] Oral 380 180 Output: Chest Tube Drainage 290 230 Chest Tube Mediastinal 160 80 Right/Left 130 150 Urine 631 1530 Other: Voiding Method Indwelling Catheter Indwelling Catheter ABP, PAP, CO, CI - Last Documented Arterial Blood Pressure 113/98 Pulmonary Artery Pressure 25/13 Cardiac Output 6.7 Cardiac Index 3.4 - Exam CONSTITUTIONAL: Appears comfortable, cooperative, no acute distress RESPIRATORY: Lungs sounds diminished bilaterally. Respirations even, nonlabored. Currently on 3 L nasal cannula with oxygen saturation 93%. Able to achieve 750 mL on incentive spirometry. Strong nonproductive cough. CARDIOVASCULAR: S1, S2 present. Irregular rate and rhythm, atrial fibrillation on telemetry. Sternum stable. Palpable peripheral pulses bilaterally. Trace generalized edema present. No calf pain or tenderness noted. Heart hugger in place with patient demonstrating appropriate use. Antiembolism stockings, SCDs present. GASTROINTESTINAL: Abdomen soft, nontender, nondistended. Active bowel sounds present 4 quadrants. Tolerating diet. Positive flatus. GENITOURINARY: [place] present draining clear, yellow urine. Output overnight 25-200 mL per hour, 2161 milliliters in the last 24 hours INTEGUMENTARY: Skin is warm and dry with evidence of good perfusion. Anterior chest incision well approximated and covered with dry intact dressing. Bilateral lower extremity EVH sites as well as left radial artery harvest site well approximated without redness or drainage. NEUROLOGIC: Cranial nerves II through XII intact MUSKULOSKELETAL: Able to move all extremities, strength equal bilaterally PSYCHIATRIC: Alert and oriented to person place and time, appropriate affect, intact judgment and insight INVASIVE LINES AND TUBES: Mediastinal/left/right pleural chest tubes present and connected to wall suction, no air leaks present. Mediastinal tube with 70 mL serosanguineous drainage overnight, 220 mL in the last 24 hours. Left/right pleural chest tubes with 140 mL serosanguineous drainage overnight, 260 mL in the last 24 hours. Right internal jugular Cordis present. - Allied health notes Allied health notes reviewed: nursing - Labs CBC & Chem 7: 06/20/22 04:55 06/20/22 04:55 Labs: Abnormal Lab Results - Last 24 Hours (Table) 06/19/22 06/19/22 06/19/22 Range/Units 08:05 08:55 10:09 RBC (4.30-5.90) m/uL Hgb (13.0-17.5) gm/dL Hct (39.0-53.0) % Plt Count (150-450) k/uL Sodium (137-145) mmol/L POC Glucose (mg/dL) 135 H 231 H 180 H (70-110) mg/dL Calcium (8.4-10.2) mg/dL Total Protein (6.3-8.2) g/dL Albumin (3.5-5.0) g/dL 06/19/22 06/19/22 06/19/22 Range/Units 10:57 12:24 13:03 RBC (4.30-5.90) m/uL Hgb (13.0-17.5) gm/dL Hct (39.0-53.0) % Plt Count (150-450) k/uL Sodium (137-145) mmol/L POC Glucose (mg/dL) 145 H 145 H 155 H (70-110) mg/dL Calcium (8.4-10.2) mg/dL Total Protein (6.3-8.2) g/dL Albumin (3.5-5.0) g/dL 06/19/22 06/19/22 06/19/22 Range/Units 14:12 15:06 16:16 RBC (4.30-5.90) m/uL Hgb (13.0-17.5) gm/dL Hct (39.0-53.0) % Plt Count (150-450) k/uL Sodium (137-145) mmol/L POC Glucose (mg/dL) 143 H 134 H 115 H (70-110) mg/dL Calcium (8.4-10.2) mg/dL Total Protein (6.3-8.2) g/dL Albumin (3.5-5.0) g/dL 06/19/22 06/19/22 06/19/22 Range/Units 18:08 19:02 20:38 RBC (4.30-5.90) m/uL Hgb (13.0-17.5) gm/dL Hct (39.0-53.0) % Plt Count (150-450) k/uL Sodium (137-145) mmol/L POC Glucose (mg/dL) 114 H 163 H 184 H (70-110) mg/dL Calcium (8.4-10.2) mg/dL Total Protein (6.3-8.2) g/dL Albumin (3.5-5.0) g/dL 06/19/22 06/19/22 06/20/22 Range/Units 21:26 22:24 00:46 RBC (4.30-5.90) m/uL Hgb (13.0-17.5) gm/dL Hct (39.0-53.0) % Plt Count (150-450) k/uL Sodium (137-145) mmol/L POC Glucose (mg/dL) 172 H 126 H 124 H (70-110) mg/dL Calcium (8.4-10.2) mg/dL Total Protein (6.3-8.2) g/dL Albumin (3.5-5.0) g/dL 06/20/22 06/20/22 06/20/22 Range/Units 01:31 02:59 04:04 RBC (4.30-5.90) m/uL Hgb (13.0-17.5) gm/dL Hct (39.0-53.0) % Plt Count (150-450) k/uL Sodium (137-145) mmol/L POC Glucose (mg/dL) 131 H 128 H 140 H (70-110) mg/dL Calcium (8.4-10.2) mg/dL Total Protein (6.3-8.2) g/dL Albumin (3.5-5.0) g/dL 06/20/22 06/20/22 06/20/22 Range/Units 04:55 04:55 05:59 RBC 3.35 L (4.30-5.90) m/uL Hgb 10.6 L (13.0-17.5) gm/dL Hct 32.1 L (39.0-53.0) % Plt Count 142 L (150-450) k/uL Sodium 135 L (137-145) mmol/L POC Glucose (mg/dL) 122 H (70-110) mg/dL Calcium 7.9 L (8.4-10.2) mg/dL Total Protein 5.0 L (6.3-8.2) g/dL Albumin 3.1 L (3.5-5.0) g/dL 06/20/22 Range/Units 07:09 RBC (4.30-5.90) m/uL Hgb (13.0-17.5) gm/dL Hct (39.0-53.0) % Plt Count (150-450) k/uL Sodium (137-145) mmol/L POC Glucose (mg/dL) 165 H (70-110) mg/dL Calcium (8.4-10.2) mg/dL Total Protein (6.3-8.2) g/dL Albumin (3.5-5.0) g/dL - Imaging and Cardiology Chest x-ray: image reviewed Assessment and Plan Assessment: 1. Triple-vessel coronary artery disease with left main disease, non-STEMI this admission, status post three-vessel off-pump CABG 2. History of previous PCI 3. Hypertension 4. Hyperlipidemia, treated, cholesterol 154, LDL 78, triglycerides 160 5. Pqt-vzuthvg-uoryxqtok diabetes, current hemoglobin A1c 7.2% 6. Current tobacco dependence 7. Mild COPD with preoperative FEV1 71% of predicted 8. Peripheral arterial disease with left lower extremity stenting 9. Family history of premature coronary artery disease with father having 3 vessel CABG at 47 years old 10. Postoperative atrial fibrillation Plan: 1. Continue to maximize medical therapy with aspirin, statin, Plavix, beta lidya therapy. Will increase beta lidya therapy as tolerated, increased to 25 mg twice daily yesterday. Continue low-dose amlodipine for radial artery spasm prophylaxis. Will start amiodarone for afib prophylaxis 2. Wean O2 as tolerated. Encourage incentive spirometry use 10 times every hour while awake. Bronchodilators per pulmonology 3. Increase activity, ambulate as tolerated. PT/OT/cardiac rehab consulted 4. Will monitor daily labs and x-rays. Electrolyte replacement per protocol. Will give 20 mg IVP lasix 5. GI/DVT prophylaxis 6. Insulin management per internal medicine 7. Pain control with current medication regimen 8. Discontinue Cordis 9. Will discontinue chest tubes 10. Discontinue [place] catheter, may bladder scan and straight cath for greater than 300 mL residual 11. Strict accurate intake and output. Daily weights 12. Smoking cessation education and counseling was provided, patient was strongly encouraged to quit smoking completely 13. More recommendations to follow
[2022-06-20] MEDS: IPRATROPIUM-ALBUTEROL 3 ML NEB INHALATION SCH ×4 (07:55→21:18)
--- NOTE | 2022-06-20 08:40 | XR ---
EXAMINATION TYPE: XR chest 1V portable DATE OF EXAM: 06/20/2022 COMPARISON: 06/19/2022 HISTORY: Postop TECHNIQUE: Single frontal view of the chest is obtained. FINDINGS: Right-sided [place] catheter has been. There is no sizable pneumothorax. Mediastinal moses in, chest tube and postsurgical changes noted. Bilateral infiltrates and pleural effusion. Chronic ap pearing cystic changes right humerus. IMPRESSION: Postoperative change with persistent bilateral infiltrate and pleural effusion.
[2022-06-20] MEDS: HEPARIN SODIUM,PORCINE/PF 5,000 UNIT/0.5 ML SYRINGE SQ SCH ×3 (08:54→23:16)
[2022-06-20] MEDS: ASPIRIN 325 MG TAB PO SCH (08:56)
[2022-06-20] MEDS: CLOPIDOGREL 75 MG TAB PO SCH (08:56)
[2022-06-20] MEDS: METOPROLOL TARTRATE 25 MG TAB PO SCH ×2 (08:56→21:16)
[2022-06-20] MEDS: ATORVASTATIN 40 MG TAB PO SCH (08:56)
[2022-06-20] MEDS: EZETIMIBE 10 MG TAB PO SCH (08:56)
[2022-06-20] MEDS: LACTATED RINGERS 1,000 ML IV SCH (08:57)
--- NOTE | 2022-06-20 10:06 | P.PN ---
Subjective PROGRESS NOTE The patient is feeling well this morning, ambulating without any chest discomfort. His breathing is stable. He underwent cardiac catheterization yesterday and was found to have severe triple vessel disease with significant distal left main disease. He is scheduled to undergo CABG on Saturday. He continues to be on IV heparin. He was evaluated by the pulmonary service. He continues to be in sinus mechanism with no evidence of atrial fibrillation. June 17: The patient is doing well, ambulating, has no chest discomfort, dizziness or palpitations. He had some burning in the chest after using the updraft. He denies any nausea or vomiting. He continues to be in sinus mechanism. He is using incentive spirometry. He is scheduled to undergo CABG tomorrow. 06/19 Patient seen and examined. Patient underwent 4 vessel CABG with GRESHAM to diagonal to LAD, SVG to PDA, left radial to ramus. Patient was extubated and not on any vasopressors. He did have brief episodes of second-degree block which appears to be Wenkebach. Therefore cardizem drip was stopped and on Amlodipine. Denies any chest pain or pressure other than his incision. No shortness breath. 06/20 Seen and examined. Patient still having intermittent episodes of second-degree AV block. He denies any lightheadedness. Mild chest pain with inspiration. St ill some dyspnea walking on the halls. Mild sinus tachycardia. PHYSICAL EXAMINATION: Vitals reviewed LUNGS: Mild decrease in the breath sounds, no wheezes HEART: Regular rate and rhythm, S1, S2. No S3. systolic ejection murmur ABDOMEN: Soft, nontender, no organomegaly EXTREMETIES: No edema, IMPRESSION: 1. Severe triple-vessel disease with non-STEMI, s/p CABG x 4 06/18 2. Status post stenting of the RCA and ramus intermedius in the past 3. History of hypertension 4. Hyperlipidemia 5. History of diabetes 6. Chronic tobacco use with COPD 7. 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 Second-degree type I AV block with no indication for any pacemaker. Continue to monitor patient symptomatically. Mild sinus tachycardia and intermittent AV block however no the AV block noted. Continue with current therapy. Objective - Vital Signs Vital signs: Vital Signs Temp 98.3 F 06/20/22 08:00 Pulse 101 H 06/20/22 09:00 Resp 15 06/20/22 09:00 BP 114/40 06/20/22 09:00 Pulse Ox 92 L 06/20/22 09:00 FiO2 40 06/18/22 15:28 Intake & Output 06/19/22 06/20/22 06/20/22 18:59 06:59 18:59 Intake Total 734.413 588.733 218.458 Output Total 921 1760 110 Balance -186.587 -1171.267 108.458 Weight 87.1 kg 90.2 kg Intake: IV 312 376 66 Lactated Ringers 1,000 ml 220 240 60 @ 20 mls/hr IV .Q24H [facility] Rx#:[id number] Magnesium Sulfate-D5w Pmx 100 1 gm In Dextrose/Water 1 100ml.bag @ 100 mls/hr IVPB Q1H [facility] Rx#: [id number] PRESSURE BAG 42 36 6 ceFAZolin 2 gm In Sodium 50 Chloride 0.9% 50 ml @ 100 mls/hr IVPB Q8HR [facility] Rx# :[id number] Intake, IV Titration 42.413 32.733 2.458 Amount Insulin Regular 100 unit 42.413 32.733 2.458 In Sodium Chloride 0.9% 100 ml @ Per Protocol IV .Q0M [facility] Rx#:[id number] Oral 380 180 150 Output: Chest Tube Drainage 290 230 60 Chest Tube Mediastinal 160 80 20 Right/Left 130 150 40 Urine 631 1530 50 Other: Voiding Method Indwelling Catheter Indwelling Catheter Indwelling Catheter ABP, PAP, CO, CI - Last Documented Arterial Blood Pressure 113/98 Pulmonary Artery Pressure 25/13 Cardiac Output 6.7 Cardiac Index 3.4 - Labs CBC & Chem 7: 06/20/22 04:55 06/20/22 04:55 Labs: Abnormal Lab Results - Last 24 Hours (Table) 06/19/22 06/19/22 06/19/22 Range/Units 10:09 10:57 12:24 RBC (4.30-5.90) m/uL Hgb (13.0-17.5) gm/dL Hct (39.0-53.0) % Plt Count (150-450) k/uL Sodium (137-145) mmol/L POC Glucose (mg/dL) 180 H 145 H 145 H (70-110) mg/dL Calcium (8.4-10.2) mg/dL Total Protein (6.3-8.2) g/dL Albumin (3.5-5.0) g/dL 06/19/22 06/19/22 06/19/22 Range/Units 13:03 14:12 15:06 RBC (4.30-5.90) m/uL Hgb (13.0-17.5) gm/dL Hct (39.0-53.0) % Plt Count (150-450) k/uL Sodium (137-145) mmol/L POC Glucose (mg/dL) 155 H 143 H 134 H (70-110) mg/dL Calcium (8.4-10.2) mg/dL Total Protein (6.3-8.2) g/dL Albumin (3.5-5.0) g/dL 06/19/22 06/19/22 06/19/22 Range/Units 16:16 18:08 19:02 RBC (4.30-5.90) m/uL Hgb (13.0-17.5) gm/dL Hct (39.0-53.0) % Plt Count (150-450) k/uL Sodium (137-145) mmol/L POC Glucose (mg/dL) 115 H 114 H 163 H (70-110) mg/dL Calcium (8.4-10.2) mg/dL Total Protein (6.3-8.2) g/dL Albumin (3.5-5.0) g/dL 06/19/22 06/19/22 06/19/22 Range/Units 20:38 21:26 22:24 RBC (4.30-5.90) m/uL Hgb (13.0-17.5) gm/dL Hct (39.0-53.0) % Plt Count (150-450) k/uL Sodium (137-145) mmol/L POC Glucose (mg/dL) 184 H 172 H 126 H (70-110) mg/dL Calcium (8.4-10.2) mg/dL Total Protein (6.3-8.2) g/dL Albumin (3.5-5.0) g/dL 06/20/22 06/20/22 06/20/22 Range/Units 00:46 01:31 02:59 RBC (4.30-5.90) m/uL Hgb (13.0-17.5) gm/dL Hct (39.0-53.0) % Plt Count (150-450) k/uL Sodium (137-145) mmol/L POC Glucose (mg/dL) 124 H 131 H 128 H (70-110) mg/dL Calcium (8.4-10.2) mg/dL Total Protein (6.3-8.2) g/dL Albumin (3.5-5.0) g/dL 06/20/22 06/20/22 06/20/22 Range/Units 04:04 04:55 04:55 RBC 3.35 L (4.30-5.90) m/uL Hgb 10.6 L (13.0-17.5) gm/dL Hct 32.1 L (39.0-53.0) % Plt Count 142 L (150-450) k/uL Sodium 135 L (137-145) mmol/L POC Glucose (mg/dL) 140 H (70-110) mg/dL Calcium 7.9 L (8.4-10.2) mg/dL Total Protein 5.0 L (6.3-8.2) g/dL Albumin 3.1 L (3.5-5.0) g/dL 06/20/22 06/20/22 Range/Units 05:59 07:09 RBC (4.30-5.90) m/uL Hgb (13.0-17.5) gm/dL Hct (39.0-53.0) % Plt Count (150-450) k/uL Sodium (137-145) mmol/L POC Glucose (mg/dL) 122 H 165 H (70-110) mg/dL Calcium (8.4-10.2) mg/dL Total Protein (6.3-8.2) g/dL Albumin (3.5-5.0) g/dL
[2022-06-20] MEDS ORDERED: DEXTROSE 50% SYRINGE 50 ML IVP PRN ×2 (10:10)
[2022-06-20] MEDS ORDERED: FUROSEMIDE 10 MG/ML 2 ML VIAL IV ONE (10:20)
[2022-06-20] MEDS: AMIODARONE 200 MG TAB PO SCH ×2 (10:32→21:16)
[2022-06-20 11:29] LABS: Glucose,Whole Blood 188 mg/dL (70-110)
[2022-06-20] MEDS: amLODIPine 2.5 MG TAB PO SCH (11:39)
[2022-06-20] MEDS: INSULIN ASPART (NovoLOG) 100 UNIT/ML VIAL SQ SCH ×3 (11:39→21:16)
--- NOTE | 2022-06-20 12:35 | P.PN ---
Subjective Progress Note Date: 06/20/22 Principal diagnosis: Status post off-pump CABG 4, left internal thoracic artery to diagonal to left internal mammary artery saphenous vein to posterior descending artery left radi al artery from aorta to ramus intermedius postoperative day #2 06/16/2022, the patient is doing well. No chest pain. No shortness of breath. Last bronchus spastic and wheezy compared to yesterday. The patient underwent spirometry yesterday and FEV1 is on that of 73% of predicted. He is currently on bronchodilators. He is also on IV Solu-Medrol. He was started on Levemir insulin 10 units along with that slight scale insulin coverage. No nausea. No chest pain. No significant shortness of breath. No cardiac arrhythmias. He remains on IV heparin. 06/17/2022, no complaints and the patient is doing well. Overnight, he did have some limited chest pain which subsequently subsided and the patient remains on IV heparin. He is less bronchospastic and wheezy. I will also take him off the IV Solu-Medrol and put him on DuoNeb nebulized treatments around the clock. He is using incentive spirometer. He was given Levemir insulin for high blood sugar control due to steroid intake. This can be also discontinued. The patient is ready for surgery to be done on 06/18/2022. This will include coronary artery bypass surgery. Patient was reevaluated today on 06/18/2022, patient is now status post off-pump CABG 4 vessel. He is on mechanical ventilation, he is on assist control rate of 14, volume 500 FiO2 100% and PEEP of 5. ABG showed a pO2 of over 400 with normal acid base status and normal pCO2, and his FiO2 was cut down to 40%. Patient is on nitroglycerin drip at 5 mcg/m, is also on insulin drip at 1 unit per hour, propofol 20 mcg/kg/m. He is not requiring any inotropes or pressors. His cardiac output is 4.1 and cardiac index is 2.1. Chest x-ray showed no evidence of acute process, lines and catheters seem to be all in the proper position. Reevaluated today on 06/19/2022, patient is now postoperative day #1. Patient is sitting in a recliner, he was extubated yesterday at 16:12, patient is doing great, tolerated the extubation well. Apparently he had a brief episode of second degree AV block yesterday, hence IV Cardizem was discontinued and the patient is in sinus rhythm at present. Remains on IV nitro. Pain seems to be fairly well controlled. Chest x-ray showed minimal atelectasis which is expected. is doing poorly with incentive spirometry but improving steadily. He is achieving no more than 750 ML. Urine output is excellent. Lines and catheters were all noted. Including right IJ [place]-Ruperto catheter right radial arterial line mediastinal right and left pleural chest tubes. CBC is relatively normal, electrolytes and renal profile are normal Reevaluated today on 06/20/22, patient is sitting in her recliner, currently in atrial fibrillation but hemodynamically stable, not requiring any pressors or any inotropes. Patient is relatively asymptomatic, blood pressure is stable. His pain is well controlled. And he is on 3 L nasal cannula with O2 saturation of 95%. Achieving 7 50 mL on his incentive spirometer. Has been ambulatory in the hallway. Chest x-ray is reassuring. Labs from today are basically unremarkable hemoglobin is 10 point O Objective - Vital Signs Vital signs: Vital Signs Temp 98.3 F 06/20/22 08:00 Pulse 105 H 06/20/22 12:20 Resp 30 H 06/20/22 12:20 BP 97/57 06/20/22 12:20 Pulse Ox 90 L 06/20/22 12:20 FiO2 40 06/18/22 15:28 Intake & Output 06/19/22 06/20/22 06/20/22 18:59 06:59 18:59 Intake Total 734.413 588.733 521.663 Output Total 921 1760 335 Balance -186.587 -1171.267 186.663 Weight 87.1 kg 90.2 kg Intake: IV 312 376 112 Lactated Ringers 1,000 ml 220 240 100 @ 20 mls/hr IV .Q24H [facility] Rx#:[id number] Magnesium Sulfate-D5w Pmx 100 1 gm In Dextrose/Water 1 100ml.bag @ 100 mls/hr IVPB Q1H [facility] Rx#: [id number] PRESSURE BAG 42 36 12 ceFAZolin 2 gm In Sodium 50 Chloride 0.9% 50 ml @ 100 mls/hr IVPB Q8HR [facility] Rx# :[id number] Intake, IV Titration 42.413 32.733 9.663 Amount Insulin Regular 100 unit 42.413 32.733 9.663 In Sodium Chloride 0.9% 100 ml @ Per Protocol IV .Q0M [facility] Rx#:[id number] Oral 380 180 400 Output: Chest Tube Drainage 290 230 100 Chest Tube Mediastinal 160 80 50 Right/Left 130 150 50 Urine 631 1530 235 Other: Voiding Method Indwelling Catheter Indwelling Catheter Toilet Urinal ABP, PAP, CO, CI - Last Documented Arterial Blood Pressure 113/98 Pulmonary Artery Pressure 25/13 Cardiac Output 6.7 Cardiac Index 3.4 - Exam Physical Exam: Revealed a 67-year-old white male in no distress, on 3 liters nasal cannula O2 saturation is 95%. Head: Atraumatic, normocephalic. HEENT:[Neck is supple.] [No neck masses.] [No thyromegaly.] [No JVD.] Chest: Symmetrical chest expansion, slightly diminished breath sounds at the bases Cardiac Exam: [Normal S1 and S2, no S3 gallop, 2/6 systolic murmur thought the precordium. Positive pericardial rub. Abdomen: [Soft, nontender, no megaly, no rebound, no guarding, normal bowel sounds.] Extremities: [No clubbing, no edema, no cyanosis.] Neurological Exam: Alert and oriented 3 focal neurologic deficit Psychiatric: Normal mood, affect and normal mental status examination Skin: No rashes. - Labs CBC & Chem 7: 06/20/22 04:55 06/20/22 04:55 Labs: Abnormal Lab Results - Last 24 Hours (Table) 06/19/22 06/19/22 06/19/22 Range/Units 13:03 14:12 15:06 RBC (4.30-5.90) m/uL Hgb (13.0-17.5) gm/dL Hct (39.0-53.0) % Plt Count (150-450) k/uL Sodium (137-145) mmol/L POC Glucose (mg/dL) 155 H 143 H 134 H (70-110) mg/dL Calcium (8.4-10.2) mg/dL Total Protein (6.3-8.2) g/dL Albumin (3.5-5.0) g/dL 06/19/22 06/19/22 06/19/22 Range/Units 16:16 18:08 19:02 RBC (4.30-5.90) m/uL Hgb (13.0-17.5) gm/dL Hct (39.0-53.0) % Plt Count (150-450) k/uL Sodium (137-145) mmol/L POC Glucose (mg/dL) 115 H 114 H 163 H (70-110) mg/dL Calcium (8.4-10.2) mg/dL Total Protein (6.3-8.2) g/dL Albumin (3.5-5.0) g/dL 06/19/22 06/19/22 06/19/22 Range/Units 20:38 21:26 22:24 RBC (4.30-5.90) m/uL Hgb (13.0-17.5) gm/dL Hct (39.0-53.0) % Plt Count (150-450) k/uL Sodium (137-145) mmol/L POC Glucose (mg/dL) 184 H 172 H 126 H (70-110) mg/dL Calcium (8.4-10.2) mg/dL Total Protein (6.3-8.2) g/dL Albumin (3.5-5.0) g/dL 06/20/22 06/20/22 06/20/22 Range/Units 00:46 01:31 02:59 RBC (4.30-5.90) m/uL Hgb (13.0-17.5) gm/dL Hct (39.0-53.0) % Plt Count (150-450) k/uL Sodium (137-145) mmol/L POC Glucose (mg/dL) 124 H 131 H 128 H (70-110) mg/dL Calcium (8.4-10.2) mg/dL Total Protein (6.3-8.2) g/dL Albumin (3.5-5.0) g/dL 06/20/22 06/20/22 06/20/22 Range/Units 04:04 04:55 04:55 RBC 3.35 L (4.30-5.90) m/uL Hgb 10.6 L (13.0-17.5) gm/dL Hct 32.1 L (39.0-53.0) % Plt Count 142 L (150-450) k/uL Sodium 135 L (137-145) mmol/L POC Glucose (mg/dL) 140 H (70-110) mg/dL Calcium 7.9 L (8.4-10.2) mg/dL Total Protein 5.0 L (6.3-8.2) g/dL Albumin 3.1 L (3.5-5.0) g/dL 06/20/22 06/20/22 06/20/22 Range/Units 05:59 07:09 11:27 RBC (4.30-5.90) m/uL Hgb (13.0-17.5) gm/dL Hct (39.0-53.0) % Plt Count (150-450) k/uL Sodium (137-145) mmol/L POC Glucose (mg/dL) 122 H 165 H 188 H (70-110) mg/dL Calcium (8.4-10.2) mg/dL Total Protein (6.3-8.2) g/dL Albumin (3.5-5.0) g/dL Assessment and Plan Assessment: Impression: Status post off-pump CABG 4 vessel, postoperative day #2 Symptomatic multivessel coronary artery disease Acute non-ST segment elevation myocardial infarction Mild ischemic cardiomyopathy and LV dysfunction with ejection fraction of 45-50% Underlying COPD, FEV1 is 70% of the predicted value. Type 2 diabetes. Benign essential hypertension. Dyslipidemia. History of smoking. Recommendation: Continue aspirin statins and Plavix and beta blockers Continue incentive spirometry Ambulate Continue GI and DVT prophylaxis Continue insulin and adjust accordingly. Continue bronchodilators We will continue to follow Time with Patient: Less than 30
--- NOTE | 2022-06-20 12:38 | P.PN ---
Subjective Progress Note Date: 06/20/22 Patient is doing well s/p CABG. No complaints, in good spirits. In and out of A Fib, started on amiodarone. Cordis, caal, mediastinal chest tube, pleural chest tubes have been removed. Gen: awake, alert HEENT: normocephalic, atraumatic, good hearing acuity, moist mucous membranes Resp: good air exchange, breathing comfortably with no accessory muscle use CVS: good distal perfusion x 4, GI: soft, NTTP, ND : no SPT, no CVAT, caal catheter not present MSK: no pitting edema, no clubbing Neuro: non-focal, moving all extremities Psych: cooperative, euthymic mood Assessment/plan: Unstable angina Multivessel coronary artery disease -Daily EKGs -Cardiology consult -Echocardiogram -Resume aspirin and statin -CT surgery consult -strict BS control to encourage healing post-op Hypomagnesemia -Replete as needed Suspect underlying COPD -DuoNeb as needed Chronic issues Hypertension Diabetes Hyperlipidemia Tobacco abuse -Resume home meds when available -Hold oral hypoglycemic agents and start Sliding-scale insulin and long-acting insulin -Nicotine patch, patient counseled on smoking cessation CODE STATUS:full code DVT prophylaxis: Heparin drip Objective - Vital Signs Vital signs: Vital Signs Temp 98.3 F 06/20/22 08:00 Pulse 105 H 06/20/22 12:20 Resp 30 H 06/20/22 12:20 BP 97/57 06/20/22 12:20 Pulse Ox 90 L 06/20/22 12:20 FiO2 40 06/18/22 15:28 Intake & Output 06/19/22 06/20/22 06/20/22 18:59 06:59 18:59 Intake Total 734.413 588.733 521.663 Output Total 921 1760 335 Balance -186.587 -1171.267 186.663 Weight 87.1 kg 90.2 kg Intake: IV 312 376 112 Lactated Ringers 1,000 ml 220 240 100 @ 20 mls/hr IV .Q24H [facility] Rx#:[id number] Magnesium Sulfate-D5w Pmx 100 1 gm In Dextrose/Water 1 100ml.bag @ 100 mls/hr IVPB Q1H [facility] Rx#: [id number] PRESSURE BAG 42 36 12 ceFAZolin 2 gm In Sodium 50 Chloride 0.9% 50 ml @ 100 mls/hr IVPB Q8HR [facility] Rx# :[id number] Intake, IV Titration 42.413 32.733 9.663 Amount Insulin Regular 100 unit 42.413 32.733 9.663 In Sodium Chloride 0.9% 100 ml @ Per Protocol IV .Q0M [facility] Rx#:[id number] Oral 380 180 400 Output: Chest Tube Drainage 290 230 100 Chest Tube Mediastinal 160 80 50 Right/Left 130 150 50 Urine 631 1530 235 Other: Voiding Method Indwelling Catheter Indwelling Catheter Toilet Urinal ABP, PAP, CO, CI - Last Documented Arterial Blood Pressure 113/98 Pulmonary Artery Pressure 25/13 Cardiac Output 6.7 Cardiac Index 3.4 - Labs CBC & Chem 7: 06/20/22 04:55 06/20/22 04:55 Labs: Abnormal Lab Results - Last 24 Hours (Table) 06/19/22 06/19/22 06/19/22 Range/Units 13:03 14:12 15:06 RBC (4.30-5.90) m/uL Hgb (13.0-17.5) gm/dL Hct (39.0-53.0) % Plt Count (150-450) k/uL Sodium (137-145) mmol/L POC Glucose (mg/dL) 155 H 143 H 134 H (70-110) mg/dL Calcium (8.4-10.2) mg/dL Total Protein (6.3-8.2) g/dL Albumin (3.5-5.0) g/dL 06/19/22 06/19/22 06/19/22 Range/Units 16:16 18:08 19:02 RBC (4.30-5.90) m/uL Hgb (13.0-17.5) gm/dL Hct (39.0-53.0) % Plt Count (150-450) k/uL Sodium (137-145) mmol/L POC Glucose (mg/dL) 115 H 114 H 163 H (70-110) mg/dL Calcium (8.4-10.2) mg/dL Total Protein (6.3-8.2) g/dL Albumin (3.5-5.0) g/dL 06/19/22 06/19/22 06/19/22 Range/Units 20:38 21:26 22:24 RBC (4.30-5.90) m/uL Hgb (13.0-17.5) gm/dL Hct (39.0-53.0) % Plt Count (150-450) k/uL Sodium (137-145) mmol/L POC Glucose (mg/dL) 184 H 172 H 126 H (70-110) mg/dL Calcium (8.4-10.2) mg/dL Total Protein (6.3-8.2) g/dL Albumin (3.5-5.0) g/dL 06/20/22 06/20/22 06/20/22 Range/Units 00:46 01:31 02:59 RBC (4.30-5.90) m/uL Hgb (13.0-17.5) gm/dL Hct (39.0-53.0) % Plt Count (150-450) k/uL Sodium (137-145) mmol/L POC Glucose (mg/dL) 124 H 131 H 128 H (70-110) mg/dL Calcium (8.4-10.2) mg/dL Total Protein (6.3-8.2) g/dL Albumin (3.5-5.0) g/dL 06/20/22 06/20/22 06/20/22 Range/Units 04:04 04:55 04:55 RBC 3.35 L (4.30-5.90) m/uL Hgb 10.6 L (13.0-17.5) gm/dL Hct 32.1 L (39.0-53.0) % Plt Count 142 L (150-450) k/uL Sodium 135 L (137-145) mmol/L POC Glucose (mg/dL) 140 H (70-110) mg/dL Calcium 7.9 L (8.4-10.2) mg/dL Total Protein 5.0 L (6.3-8.2) g/dL Albumin 3.1 L (3.5-5.0) g/dL 06/20/22 06/20/22 06/20/22 Range/Units 05:59 07:09 11:27 RBC (4.30-5.90) m/uL Hgb (13.0-17.5) gm/dL Hct (39.0-53.0) % Plt Count (150-450) k/uL Sodium (137-145) mmol/L POC Glucose (mg/dL) 122 H 165 H 188 H (70-110) mg/dL Calcium (8.4-10.2) mg/dL Total Protein (6.3-8.2) g/dL Albumin (3.5-5.0) g/dL
[2022-06-20 20:50] LABS: Glucose,Whole Blood 344 mg/dL (70-110)
[2022-06-20 21:14] LABS: Glucose,Whole Blood 333 mg/dL (70-110)
[2022-06-20] MEDS: SENNOSIDES-DOCUSATE SODIUM 1 EACH TAB PO SCH (21:16)
[2022-06-21] MEDS: INSULIN ASPART (NovoLOG) 100 UNIT/ML VIAL SQ SCH ×3 (01:34→12:37)
[2022-06-21] MEDS: METOPROLOL SUCCINATE (ER) 100 MG TAB.ER.24H PO SCH (01:38)
[2022-06-21] MEDS: NITROGLYCERIN OINT 1 INCH/GM PACKET TOPICAL SCH (01:38)
[2022-06-21] MEDS: lisinopriL 20 MG TAB PO SCH (01:38)
[2022-06-21] MEDS: ASPIRIN 81 MG PO SCH (01:38)
[2022-06-21] MEDS: PIOGLITAZONE 30 MG TAB PO SCH (01:39)
[2022-06-21] MEDS: MUPIROCIN 2% OINT 22 GM TUBE NASAL SCH (01:39)
[2022-06-21] MEDS: NICOTINE 21MG/24HR PATCH TRANSDERM SCH (01:39)
[2022-06-21 06:06] LABS: Glucose,Whole Blood 196 mg/dL (70-110)
[2022-06-21 06:16] LABS: HCT 29.3 % (39.0-53.0); HGB 9.8 gm/dL (13.0-17.5); MCH 31.8 pg (25.0-35.0); MCHC 33.3 g/dL (31.0-37.0); MCV 95.3 fL (80.0-100.0); Platelet Count 160 k/uL (150-450); RBC 3.08 m/uL (4.30-5.90); WBC 10.9 k/uL (3.8-10.6)
[2022-06-21 06:24] LABS: African American GFR (CKD) >90 (>60 ml/min/1.73 sqM); Anion Gap 8 mmol/L; Blood Urea Nitrogen 14 mg/dL (9-20); Calcium 8.1 mg/dL (8.4-10.2); Carbon Dioxide 25 mmol/L (22-30); Chloride 100 mmol/L (98-107); Glucose 186 mg/dL (74-99); Magnesium 1.7 mg/dL (1.6-2.3); Non-African American GFR(CKD) >90 (>60 ml/min/1.73 sqM); Potassium 4.5 mmol/L (3.5-5.1); Sodium 133 mmol/L (137-145)
[2022-06-21] MEDS: KETOROLAC 15 MG/ML 1 ML VIAL IVP SCH (06:37)
[2022-06-21] MEDS: PANTOPRAZOLE 40 MG TABLET PO SCH (06:37)
[2022-06-21] MEDS ORDERED: metFORMIN 500 MG TAB PO SCH (07:30)
[2022-06-21] MEDS ORDERED: KETOROLAC 15 MG/ML 1 ML VIAL IVP PRN (07:34)
--- NOTE | 2022-06-21 07:49 | P.PN ---
Subjective Progress Note Date: 06/21/22 Principal diagnosis: Triple-vessel coronary artery disease with left main disease, non-STEMI this admission. Previous medical history PCI x2, hypertension, hyperlipidemia, fmm-taegcah-kylhulqub diabetes, current tobacco dependence, mild COPD, peripheral arterial disease with left lower extremity stenting, and family history of premature coronary artery disease with father having 3 vessel CABG at 47 years old POD #3 off-pump coronary artery bypass grafting 4, left internal thoracic artery sequentially to the diagonal then left anterior descending coronary artery, left radial artery from the aorta to the ramus intermedius, reverse saphenous vein graft to the posterior descending artery, endoscopic left radial and bilateral greater saphenous vein harvest, left atrial appendage ligation with #35 mm AtriCure clip, intraoperative transesophageal echocardiogram Postoperative atrial fibrillation, known common occurrence after open heart surgery The patient was seen and examined this morning sitting up in a recliner on the cardiac stepdown unit in no acute distress eating breakfast. Currently in sinus rhythm, hemodynamically stable. Patient states postsurgical pain controlled on current medication regimen, denies shortness of breath. Continues to take his oxygen off, refused to allow nurse to check his oxygen saturation on room air this morning, oxygen placed back on patient and instructed to leave it until we can prove that he does not need it. Able to achieve 1250 mL on incentive spirometry. Urine output stable. Patient has been ambulatory in the hallway without difficulty. The patient really wanting to go home today, explained we are still adjusting medications but will set him up for early discharge tomorrow. No other new concerns. Objective - Vital Signs Vital signs: Vital Signs Temp 98.1 F 06/20/22 20:00 Pulse 108 H 06/21/22 03:35 Resp 15 06/21/22 03:35 BP 162/68 06/21/22 03:35 Pulse Ox 92 L 06/20/22 20:00 FiO2 40 06/18/22 15:28 Intake & Output 06/20/22 06/21/22 06/21/22 18:59 06:59 18:59 Intake Total 521.663 250 Output Total 635 Balance -113.337 250 Weight 89.9 kg Intake: IV 112 Lactated Ringers 1,000 ml 100 @ 20 mls/hr IV .Q24H [facility] Rx#:[id number] PRESSURE BAG 12 Intake, IV Titration 9.663 Amount Insulin Regular 100 unit 9.663 In Sodium Chloride 0.9% 100 ml @ Per Protocol IV .Q0M [facility] Rx#:[id number] Oral 400 250 Output: Chest Tube Drainage 100 Chest Tube Mediastinal 50 Right/Left 50 Urine 535 Other: Voiding Method Toilet Urinal # Bowel Movements 1 ABP, PAP, CO, CI - Last Documented Arterial Blood Pressure 113/98 Pulmonary Artery Pressure 25/13 Cardiac Output 6.7 Cardiac Index 3.4 - Exam CONSTITUTIONAL: Appears comfortable, cooperative, no acute distress RESPIRATORY: Lungs sounds diminished bilaterally. Respirations even, nonlabored. Currently on 3 L nasal cannula. Able to achieve 1250 mL on incentive spirometry. Strong nonproductive cough. CARDIOVASCULAR: S1, S2 present. Regular rate and rhythm, sinus rhythm on telemetry. Sternum stable. Palpable peripheral pulses bilaterally. Trace generalized edema present. No calf pain or tenderness noted. Heart hugger in place with patient demonstrating appropriate use. Antiembolism stockings, SCDs present. GASTROINTESTINAL: Abdomen soft, nontender, nondistended. Active bowel sounds present 4 quadrants. Tolerating diet. Positive bowel movement this morning GENITOURINARY: [place] discontinued yesterday, patient continues to void INTEGUMENTARY: Skin is warm and dry with evidence of good perfusion. Anterior chest incision well approximated. Bilateral lower extremity EVH sites as well as left radial artery harvest site well approximated without redness or drainage. NEUROLOGIC: Cranial nerves II through XII intact MUSKULOSKELETAL: Able to move all extremities, strength equal bilaterally PSYCHIATRIC: Alert and oriented to person place and time, appropriate affect, intact judgment and insight - Allied health notes Allied health notes reviewed: nursing - Labs CBC & Chem 7: 06/21/22 05:27 06/21/22 05:27 Labs: Abnormal Lab Results - Last 24 Hours (Table) 06/20/22 06/20/22 06/20/22 Range/Units 04:55 11:27 20:49 WBC (3.8-10.6) k/uL RBC (4.30-5.90) m/uL Hgb (13.0-17.5) gm/dL Hct (39.0-53.0) % Sodium (137-145) mmol/L Glucose (74-99) mg/dL POC Glucose (mg/dL) 188 H 344 H (70-110) mg/dL Hemoglobin A1c 7.1 H (0.0-6.0) % Calcium (8.4-10.2) mg/dL 06/20/22 06/21/22 06/21/22 Range/Units 21:12 05:27 05:27 WBC 10.9 H (3.8-10.6) k/uL RBC 3.08 L (4.30-5.90) m/uL Hgb 9.8 L (13.0-17.5) gm/dL Hct 29.3 L (39.0-53.0) % Sodium 133 L (137-145) mmol/L Glucose 186 H (74-99) mg/dL POC Glucose (mg/dL) 333 H (70-110) mg/dL Hemoglobin A1c (0.0-6.0) % Calcium 8.1 L (8.4-10.2) mg/dL 06/21/22 Range/Units 06:04 WBC (3.8-10.6) k/uL RBC (4.30-5.90) m/uL Hgb (13.0-17.5) gm/dL Hct (39.0-53.0) % Sodium (137-145) mmol/L Glucose (74-99) mg/dL POC Glucose (mg/dL) 196 H (70-110) mg/dL Hemoglobin A1c (0.0-6.0) % Calcium (8.4-10.2) mg/dL - Imaging and Cardiology Chest x-ray: image reviewed Assessment and Plan Assessment: 1. Triple-vessel coronary artery disease with left main disease, non-STEMI this admission, status post three-vessel off-pump CABG 2. History of previous PCI 3. Hypertension 4. Hyperlipidemia, treated, cholesterol 154, LDL 78, triglycerides 160 5. Nrn-jitydud-fsjcnklct diabetes, current hemoglobin A1c 7.2% 6. Current tobacco dependence 7. Mild COPD with preoperative FEV1 71% of predicted 8. Peripheral arterial disease with left lower extremity stenting 9. Family history of premature coronary artery disease with father having 3 vessel CABG at 47 years old 10. Postoperative atrial fibrillation Plan: 1. Continue to maximize medical therapy with aspirin, statin, Plavix, beta lidya therapy. Will increase beta lidya therapy as tolerated, increased to 50 mg twice daily today. Continue low-dose amlodipine for radial artery spasm prophylaxis. Continue amiodarone for afib prophylaxis 2. Wean O2 as tolerated. Encourage incentive spirometry use 10 times every hour while awake. Bronchodilators per pulmonology 3. Increase activity, ambulate as tolerated. PT/OT/cardiac rehab consulted 4. Will monitor daily labs and x-rays. Electrolyte replacement per protocol. Will give 20 mg IVP lasix 5. GI/DVT prophylaxis 6. Insulin management per internal medicine. Patient restarted on oral metformin as blood sugars have been climbing 7. Pain control with current medication regimen 8. Strict accurate intake and output. Daily weights 9. Smoking cessation education and counseling was provided, patient was strongly encouraged to quit smoking completely 10. More recommendations to follow
[2022-06-21] MEDS: IPRATROPIUM-ALBUTEROL 3 ML NEB INHALATION SCH ×2 (07:55→12:07)
[2022-06-21] MEDS ORDERED: FUROSEMIDE 10 MG/ML 2 ML VIAL IV ONE (08:11)
[2022-06-21] MEDS ORDERED: METOPROLOL TARTRATE 50 MG TAB PO SCH (09:00)
[2022-06-21] MEDS: ASPIRIN 325 MG TAB PO SCH (09:01)
[2022-06-21] MEDS: MAGNESIUM SULFATE-D5W PMX 1 GM in DEXTROSE/WATER 1 100ML.BAG IVPB SCH ×2 (09:01→10:17)
[2022-06-21] MEDS: ATORVASTATIN 40 MG TAB PO SCH (09:01)
[2022-06-21] MEDS: CLOPIDOGREL 75 MG TAB PO SCH (09:01)
[2022-06-21] MEDS: AMIODARONE 200 MG TAB PO SCH (09:01)
[2022-06-21] MEDS: EZETIMIBE 10 MG TAB PO SCH (09:01)
[2022-06-21] MEDS: HEPARIN SODIUM,PORCINE/PF 5,000 UNIT/0.5 ML SYRINGE SQ SCH (09:02)
--- NOTE | 2022-06-21 09:22 | XR ---
EXAMINATION TYPE: XR chest 2V DATE OF EXAM: 06/21/2022 COMPARISON: 06/20/2022 TECHNIQUE: PA and lateral views submitted. HISTORY: Postcardiac surgery FINDINGS: Chest tube is been removed with no sizable thorax. Mediastinal drains been removed. Postoperative jayson nges. Coarsened interstitium with bibasilar subsegmental consolidation and small effusions stable. Le ft perihilar subsegmental atelectasis. Underlying COPD suspected. IMPRESSION: 1. No pneumothorax post chest tube removal. Persistent bilateral atelectasis or infiltrate with small effusion. Mild central venous congestion in the differential diagnosis
[2022-06-21 10:40] VITALS: TEMP 97.6
[2022-06-21] MEDS ORDERED: SENNOSIDES-DOCUSATE SODIUM 1 EACH TAB PO PRN (11:24)
[2022-06-21 11:25] LABS: Glucose,Whole Blood 303 mg/dL (70-110)
--- NOTE | 2022-06-21 11:36 | P.PN ---
Subjective Progress Note Date: 06/21/22 HISTORY OF PRESENT ILLNESS: The patient is feeling well this morning, ambulating without any chest discomfort. His breathing is stable. He underwent cardiac catheterization yesterday and was found to have severe triple vessel disease with significant distal left main disease. He is scheduled to undergo CABG on Saturday. He continues to be on IV heparin. He was evaluated by the pulmonary service. He continues to be in sinus mechanism with no evidence of atrial fibrillation. June 17: The patient is doing well, ambulating, has no chest discomfort, dizziness or palpitations. He had some burning in the chest after using the updraft. He denies any nausea or vomiting. He continues to be in sinus mechanism. He is using incentive spirometry. He is scheduled to undergo CABG tomorrow. 06/19 Patient seen and examined. Patient underwent 4 vessel CABG with GRESHAM to drewn al to LAD, SVG to PDA, left radial to ramus. Patient was extubated and not on any vasopressors. He did have brief episodes of second-degree block which appears to be Wenkebach. Therefore cardizem drip was stopped and on Amlodipine. Denies any chest pain or pressure other than his incision. No shortness breath. 06/20 Seen and examined. Patient still having intermittent episodes of second-degree AV block. He denies any lightheadedness. Mild chest pain with inspiration. Still some dyspnea walking on the halls. Mild sinus tachycardia. 06/21/2022 Patient examined this morning at the bedside. Patient denies chest pain or pressure. He denies shortness of breath. Telemetry reveals sinus mechanism with mild tachycardia. Heart rate around 106 at the time of my examination. Patient has been up ambulating without difficulty. His vital signs are stable. He is anxious to be discharged. PHYSICAL EXAM: VITAL SIGNS: Reviewed. GENERAL: Well-developed in no acute distress. NECK: Supple. No JVD or thyromegaly LUNGS: Respirations even and unlabored. Lungs essentially clear to auscultation bilaterally. HEART: Regular rate and rhythm. S1 and S2 heard. Systolic murmur noted. EXTREMITIES: Normal range of motion. No clubbing or cyanosis. Peripheral pulses intact. No lower extremity edema ASSESSMENT: 1. Severe triple-vessel disease with non-STEMI, s/p CABG x 4 06/18 2. Status post stenting of the RCA and ramus intermedius in the past 3. History of hypertension 4. Hyperlipidemia 5. History of diabetes 6. Chronic tobacco use with COPD 7. 2nd degree type 1 AV block PLAN: Continue postoperative management per cardiothoracic surgery Continue telemetry monitoring Continue current cardiac medications Increase activity as tolerated Encourage use of incentive spirometer Further recommendations pending patient's course Possible discharge home tomorrow Nurse practitioner note has been reviewed by physician. Signing provider agrees with the documented findings, assessment, and plan of care. Objective - Vital Signs Vital signs: Vital Signs Temp 97.6 F 06/21/22 08:00 Pulse 102 H 06/21/22 08:04 Resp 16 06/21/22 08:00 BP 143/66 06/21/22 08:00 Pulse Ox 96 06/21/22 08:00 FiO2 40 06/18/22 15:28 Intake & Output 06/20/22 06/21/22 06/21/22 18:59 06:59 18:59 Intake Total 521.663 250 120 Output Total 635 250 Balance -113.337 250 -130 Weight 89.9 kg Intake: IV 112 Lactated Ringers 1,000 ml 100 @ 20 mls/hr IV .Q24H [facility] Rx#:[id number] PRESSURE BAG 12 Intake, IV Titration 9.663 Amount Insulin Regular 100 unit 9.663 In Sodium Chloride 0.9% 100 ml @ Per Protocol IV .Q0M [facility] Rx#:[id number] Oral 400 250 120 Output: Chest Tube Drainage 100 Chest Tube Mediastinal 50 Right/Left 50 Urine 535 250 Other: Voiding Method Toilet Toilet Urinal Urinal # Bowel Movements 1 1 ABP, PAP, CO, CI - Last Documented Arterial Blood Pressure 113/98 Pulmonary Artery Pressure 25/13 Cardiac Output 6.7 Cardiac Index 3.4 - Labs CBC & Chem 7: 06/21/22 05:27 06/21/22 05:27 Labs: Abnormal Lab Results - Last 24 Hours (Table) 06/20/22 06/20/22 06/20/22 Range/Units 04:55 20:49 21:12 WBC (3.8-10.6) k/uL RBC (4.30-5.90) m/uL Hgb (13.0-17.5) gm/dL Hct (39.0-53.0) % Sodium (137-145) mmol/L Glucose (74-99) mg/dL POC Glucose (mg/dL) 344 H 333 H (70-110) mg/dL Hemoglobin A1c 7.1 H (0.0-6.0) % Calcium (8.4-10.2) mg/dL 06/21/22 06/21/22 06/21/22 Range/Units 05:27 05:27 06:04 WBC 10.9 H (3.8-10.6) k/uL RBC 3.08 L (4.30-5.90) m/uL Hgb 9.8 L (13.0-17.5) gm/dL Hct 29.3 L (39.0-53.0) % Sodium 133 L (137-145) mmol/L Glucose 186 H (74-99) mg/dL POC Glucose (mg/dL) 196 H (70-110) mg/dL Hemoglobin A1c (0.0-6.0) % Calcium 8.1 L (8.4-10.2) mg/dL 06/21/22 Range/Units 11:24 WBC (3.8-10.6) k/uL RBC (4.30-5.90) m/uL Hgb (13.0-17.5) gm/dL Hct (39.0-53.0) % Sodium (137-145) mmol/L Glucose (74-99) mg/dL POC Glucose (mg/dL) 303 H (70-110) mg/dL Hemoglobin A1c (0.0-6.0) % Calcium (8.4-10.2) mg/dL
[2022-06-21] MEDS ORDERED: INSULIN ASPART (NovoLOG) 100 UNIT/ML VIAL SQ SCH (12:30)
[2022-06-21] MEDS: amLODIPine 2.5 MG TAB PO SCH (12:36)
--- NOTE | 2022-06-21 13:33 | P.DS ---
Providers Date of admission: 06/14/22 16:51 Expected date of discharge: 06/21/22 Attending physician: Michael Mcgraw MD Consults: 06/14/22 16:51 Consult Physician Urgent Consulting Provider: Emely Kc Consult Reason/Comments: nstemi Do you want consulting provider notified?: Already Contacted 06/15/22 10:48 Consult Physician Routine Consulting Provider: Michael Mcgraw Consult Reason/Comments: cabg Do you want consulting provider notified?: Already Contacted 06/15/22 12:33 Consult Physician Routine Consulting Provider: Noa Kaiser Consult Reason/Comments: preop cabg Do you want consulting provider notified?: Already Contacted 06/17/22 08:30 Consult to Anesthesia Routine Consulting Provider: Anesthesia,Services Consult Reason/Comments: Cardiac Surgery Pre-Op 06/18/22 12:44 Consult Physician Routine Consulting Provider: Kalee Jhaveri Consult Reason/Comments: med mgmt Do you want consulting provider notified?: Already Contacted Primary care physician: Masoud Matias Hospital Course: FINAL DIAGNOSIS: 1. Triple-vessel coronary artery disease with left main disease, non-STEMI this admission 2. History of previous PCI 3. Hypertension 4. Hyperlipidemia, treated, cholesterol 154, LDL 78, triglycerides 160 5. Joc-uepfffd-jcwwlmhpi diabetes, current hemoglobin A1c 7.2% 6. Current tobacco dependence 7. Mild COPD with preoperative FEV1 71% of predicted 8. Peripheral arterial disease with left lower extremity stenting 9. Family history of premature coronary artery disease 10. Postoperative atrial fibrillation, known common occurrence after open heart surgery PRINCIPAL PROCEDURE: 1. Off-pump coronary artery bypass grafting 4, left internal thoracic artery sequentially to the diagonal then left anterior descending coronary artery, left radial artery from the aorta to the ramus intermedius, reverse saphenous vein graft to the posterior descending artery 2. Endoscopic left radial and bilateral greater saphenous vein harvest 3. Left atrial appendage ligation with #35 mm AtriCure clip 4. Intraoperative transesophageal echocardiogram HISTORY OF PRESENT ILLNESS: This is a 67-year-old gentleman who follows on an outpatient basis with Dr. Matias for primary care. Apparently he had been experiencing what he described as heartburn for approximately 3 weeks but did develop chest discomfort with nausea. He stated his symptomatology was only with exertion, never at rest, denied any shortness of breath, diaphoresis, dizziness, or any other symptomatology. He was sent for a stress test by his [facility] physician which was abnormal and he was directed to go to the emergency room. He had troponin elevation and EKG changes consistent with non- STEMI. He underwent heart catheterization which demonstrated distal left main stenosis 70%, ostial LAD stenosis 70%, proximal LAD stenosis at the takeoff of the diagonal branch 95%, ostial circumflex stenosis 60-70%, ramus stenosis 70%, and mid RCA stenosis 70%. Consultation was placed to cardiothoracic surgery for recommendations. He was recommended to undergo coronary artery bypass surgery. The usual perioperative course was discussed in detail with the patient and his family, all risks and benefits were explained, all questions were answered, and consent was obtained to proceed with surgery. The patient was kept inpatient due to the nature of his disease process. HOSPITAL COURSE: The patient was brought to the preoperative area 06/18/22, prepared in the usual fashion, and subsequently taken to the operating room where Dr. Mcgraw performed off pump 4 vessel CABG. Upon completion of surgery the patient was transferred to the cardiovascular intensive care unit where he was recovered and monitored hemodynamically. He was extubated, all lines, tubes, and drips were discontinued when appropriate, and he was transferred to 3 S cardiac stepdown unit for further monitoring and rehabilitation. His oxygen was titrated down, he continued to work with physical and occupational therapy, he was tolerating oral diet, his pain was controlled, and he was ready to be discharged to home with [facility] care on postoperative day #3. He received written and verbal instruction regarding his medications, activity restrictions, signs and symptoms requiring physician notification, and follow-up appointments. He was educated and counseled regarding complete smoking cessation and community resources were provided. Patient Condition at Discharge: Stable Plan - Discharge Summary Discharge Rx Participant: No New Discharge Prescriptions: New amLODIPine [Norvasc] 2.5 mg PO DAILY@1200 #30 tab Pantoprazole [Protonix] 40 mg PO AC-BRKFST #30 tab Sennosides-Docusate Sodium [Senokot-S] 2 each PO HS PRN tab PRN Reason: Constipation Empagliflozin [Jardiance] 10 mg PO DAILY #30 tablet Amiodarone [Cordarone] 400 mg PO BID #45 tab Metoprolol Tartrate [Lopressor] 50 mg PO BID #60 tab Clopidogrel [Plavix] 75 mg PO DAILY #30 tab Acetaminophen Tab [Tylenol] 650 mg PO Q4HR PRN tab PRN Reason: Fever And/ Or Pain Continue metFORMIN HCL 1,000 mg PO BID Atorvastatin Calcium [Lipitor] 80 mg PO HS Aspirin EC [Ecotrin Low Dose] 81 mg PO DAILY Ezetimibe [Zetia] 10 mg PO DAILY Discontinued Pioglitazone HCl 30 mg PO DAILY Nitroglycerin Sl Tabs [Nitrostat] 0.4 mg SUBLINGUAL Q5M PRN PRN Reason: Chest Pain Metoprolol Succinate (ER) [Toprol Xl] 100 mg PO DAILY lisinopriL [Zestril] 20 mg PO BID Discharge Medication List Aspirin EC [Ecotrin Low Dose] 81 mg PO DAILY 06/14/22 [History] Atorvastatin Calcium [Lipitor] 80 mg PO HS 06/14/22 [History] Ezetimibe [Zetia] 10 mg PO DAILY 06/14/22 [History] metFORMIN HCL 1,000 mg PO BID 06/14/22 [History] Acetaminophen Tab [Tylenol] 650 mg PO Q4HR PRN tab 06/21/22 [Rx] Amiodarone [Cordarone] 400 mg PO BID #45 tab 06/21/22 [Rx] Clopidogrel [Plavix] 75 mg PO DAILY #30 tab 06/21/22 [Rx] Empagliflozin [Jardiance] 10 mg PO DAILY #30 tablet 06/21/22 [Rx] Metoprolol Tartrate [Lopressor] 50 mg PO BID #60 tab 06/21/22 [Rx] Pantoprazole [Protonix] 40 mg PO AC-BRKFST #30 tab 06/21/22 [Rx] Sennosides-Docusate Sodium [Senokot-S] 2 each PO HS PRN tab 06/21/22 [Rx] amLODIPine [Norvasc] 2.5 mg PO DAILY@1200 #30 tab 06/21/22 [Rx] Follow up Appointment(s)/Referral(s): Emely Kc MD [STAFF PHYSICIAN] - 2 Weeks (Office will call with appointment) [facility] [NON-STAFF] - 4 Weeks (You will receive a phone call in approximately 4-6 weeks for evaluation for cardiac rehab) [facility] [NON-STAFF] - ([facility] to arrange a visit. They should come the day after discharge, then 2-3 times per week for 4 weeks) Tenzin Cha NPC [Nurse Practitioner] - 06/26/22 1:30 pm (You will be seen in the surgeon's office behind the hospital in [facility], [address] Office phone number is ) Masoud Matias DO [Primary Care Provider] - 07/05/22 9:30 am Michael Mcgraw MD [STAFF PHYSICIAN] - 07/19/22 2:00 pm Noa Kaiser MD [STAFF PHYSICIAN] - 07/13/22 8:30 am Ambulatory/Diagnostic Orders: Complete Blood Count w/diff [LAB.AMB] Time Frame: 3 Days, Location: None Selected Comprehensive Metabolic Panel [LAB.AMB] Time Frame: 3 Days, Location: None Selected Activity/Diet/Wound Care/Special Instructions: DISCHARGE INSTRUCTIONS: 1. No driving for 4 weeks, or until physician gives their ok. 2. The patient should sleep in their own bed, no medical bed needed. 3. Stairs are not an issue. If the bedroom is upstairs, it is advised that the patient go up at night and down in the morning for the first week. Go slowly, using handrail and take 1 step at a time. 4. STARR hose are to be worn for 30 days or until physician discontinues. 5. Heart hugger is to be worn 100% of the time until physician discontinues.(except when showering) 6. No lifting, pushing, or pulling more than 10 pounds for 12 weeks. The physician will advise of any restriction changes. 7. The patient is expected to continue the prescribed walking program. 8. Continue pain control per as needed orders. 9. Continue with incentive spirometry and splinting/heart hugger until otherwise directed by the physician. 10. Must shower daily using liquid antibacterial soap and a separate white washcloth for each individual incision. 11. Routine sternal incision care. No powders, lotions, ointments on incisions. No dressings are necessary on incisions unless they are draining. Dermabond tape is to remain on sternal incision until surgeon follow-up. 12. Please call surgeon/INTERVENTIONAL PHYSICIAN for temp greater than 101 F or purulent drainage from incisions. 13. You should weigh yourself daily, record and bring log with you to follow up appointments. 14. All prescriptions given by surgeon for 30 days. Refills need to be filled through head of housekeeping/primary care physician. 15. A Red armband has been placed on the patient. It should be worn for 30 days post surgery and will be removed by the cardiac surgeons. If an ER visit is necessary, please make sure the number on the Red armband is called. 16. You have been referred to and are expected to begin Cardiac Rehab in approximately 4-6 weeks. HOME HEALTH SERVICES TO PROVIDE: RN SKILLED HOME CARE SERVICES FOR POST-OP SURGICAL PATIENTS WITH THE FOLLOWING: Coronary Artery Bypass Surgery (CABG), Mitral Valve Replacement/Repair ( MVR), Aortic Valve Replacement/Repair (AVR) RN TO CONTINUE EDUCATION FROM ``ROAD TO A HEALTH HEART PATIENT EDUCATION MANUAL (GIVEN TO PATIENT IN THE HOSPITAL) MEDICATION RECONCILIATION WITH EDUCATION NEEDED ON FIRST HOME VISIT EMPHASIZE IMPORTANCE OF WEARING BREAST SUPPORT/HEART HUGGER ENCOURAGE USE OF INCENTIVE SPIROMETER 10 X EVERY HOUR WHILE AWAKE ENCOURAGE UTILIZATION OF LOWER EXTREMITY COMPRESSION STOCKINGS/STARR HOSE and ELEVATE LEGS ABOVE LEVEL OF HEART WHILE AT REST. ENCOURAGE AMBULATION 3-5x/day INCREASING TOLERATES, WHILE AVOIDING EXTREMES IN TEMPERATURE FREQUENCY: RN TO OPEN THE PATIENT WITHIN 24 HOURS OF DISCHARGE FROM THE HOSPITAL WITH TELEHEALTH INSTALLED AT [place], RN TO VISIT 2-3 X A WEEK FOR 4 WEEKS ESTABLISHED BY PATIENT NEEDS. LABORATORY: CBC, CMP TO BE DRAWN ON THE THIRD DAY HOME, (RAN STAT) FAX RESULTS TO [phone]. TELEHEALTH PARAMETERS: WEIGHT: NOTIFY MD OF WEIGHT GAIN OF 2 LBS IN 24 HOURS OR 5 LBS IN ONE WEEK HR: NOTIFY MD OF HR <55 BPM OR HR>100 BPM BP: NOTIFY MD IF BP <90/55 OR BP>140/100 O2 SAT: NOTIFY MD IF PO2<93% ON ROOM AIR SEND TELEHEALTH REPORT TO MANUFACTURE SPECIALIST AND CARDIOVASCULAR SURGEON THE FIRST WEEK OF CARE AND THEN BI-WEEKLY. PLEASE ADDITIONALLY COMMUNICATE ANY ABNORMALS AND NEW FINDINGS TO THE SURGEONS OFFICE. Discharge Disposition: HOME WITH HOME HEALTH SERVICES
[2022-06-21 14:05] VITALS: BP 111/65; PULSE 86; RESP 18
--- NOTE | 2022-06-21 14:17 | P.PN ---
Subjective Progress Note Date: 06/21/22 (delayed charting seen at 0930) Patient is a 67-year-old male with known coronary artery disease status post stenting, hypertension, diabetes, and tobacco abuse who presented to the ER due to abnormal stress test. Patient ultimately underwent three-vessel coronary artery bypass grafting this admission. Patient seen and examined at bedside. He is doing well. He denies any chest pain, shortness of breath nausea, vomiting, or diarrhea. He has been up and ambulating and feels well. Pain is very manageable. We discussed his diabetes. He states his A1c is typically always less than 7. He has been on metformin and by mouth glitazone for many years. He states his sugars have been abnorm ally high for him after open-heart. We discussed that pioglitazone may exacerbate congestive heart failure signs and symptoms and his ejection fraction was only 40-45%, I have suggested discontinuing this medication and selecting an alternative. We discussed Jardiance and januvia as options. General: nontoxic, no distress, appears at stated age Derm: warm, dry Head: atraumatic, normocephalic, symmetric Eyes: EOMI, no lid lag, anicteric sclera Mouth: no lip lesion, mucus membranes moist Cardiovascular: S1S2 reg, no murmur, positive posterior tibial pulse bilateral, , midline incision over chest with Steri-Strips in place Lungs: CTA bilateral, no rhonchi, no rales , no accessory muscle use Abdominal: soft, nontender to palpation, no guarding, no appreciable organomegaly Ext: no gross muscle atrophy, no edema, no contractures Neuro: CN II-XI grossly intact, no focal neuro deficits Psych: Alert, oriented, appropriate affect Assessment/plan: Diabetes mellitus type 2 with hyperglycemia -Patient was on pioglitazone and metformin prior to admission -Would avoid by mouth glitazone given his mildly reduced ejection fraction of 40-45% and its propensity to exacerbate heart failure -Mane checked Jardiance however it is $400, Januvia is also $400. We'll discharge home on metformin and glyburide -Patient to take blood sugar every a.m. and with any signs or symptoms of hypoglycemia -Has an appointment scheduled with his primary on 07/05/22. Multivessel coronary artery disease status post 3 vessel bypass surgery -Management per CVT Hypertension - norvasc - metoprolol - follow BP Diabetes Hyperlipidemia Tobacco abuse - D/W parveen roblero NP Objective - Vital Signs Vital signs: Vital Signs Temp 97.6 F 06/21/22 08:00 Pulse 86 06/21/22 12:00 Resp 18 06/21/22 12:00 BP 111/65 06/21/22 12:00 Pulse Ox 90 L 06/21/22 12:00 FiO2 40 06/18/22 15:28 Intake & Output 06/20/22 06/21/22 06/21/22 18:59 06:59 18:59 Intake Total 521.663 250 360 Output Total 635 250 Balance -113.337 250 110 Weight 89.9 kg Intake: IV 112 Lactated Ringers 1,000 ml 100 @ 20 mls/hr IV .Q24H [facility] Rx#:[id number] PRESSURE BAG 12 Intake, IV Titration 9.663 Amount Insulin Regular 100 unit 9.663 In Sodium Chloride 0.9% 100 ml @ Per Protocol IV .Q0M [facility] Rx#:[id number] Oral 400 250 360 Output: Chest Tube Drainage 100 Chest Tube Mediastinal 50 Right/Left 50 Urine 535 250 Other: Voiding Method Toilet Toilet Urinal Urinal # Bowel Movements 1 1 ABP, PAP, CO, CI - Last Documented Arterial Blood Pressure 113/98 Pulmonary Artery Pressure 25/13 Cardiac Output 6.7 Cardiac Index 3.4 - Labs CBC & Chem 7: 06/21/22 05:27 06/21/22 05:27 Labs: Abnormal Lab Results - Last 24 Hours (Table) 06/20/22 06/20/22 06/20/22 Range/Units 04:55 20:49 21:12 WBC (3.8-10.6) k/uL RBC (4.30-5.90) m/uL Hgb (13.0-17.5) gm/dL Hct (39.0-53.0) % Sodium (137-145) mmol/L Glucose (74-99) mg/dL POC Glucose (mg/dL) 344 H 333 H (70-110) mg/dL Hemoglobin A1c 7.1 H (0.0-6.0) % Calcium (8.4-10.2) mg/dL 06/21/22 06/21/22 06/21/22 Range/Units 05:27 05:27 06:04 WBC 10.9 H (3.8-10.6) k/uL RBC 3.08 L (4.30-5.90) m/uL Hgb 9.8 L (13.0-17.5) gm/dL Hct 29.3 L (39.0-53.0) % Sodium 133 L (137-145) mmol/L Glucose 186 H (74-99) mg/dL POC Glucose (mg/dL) 196 H (70-110) mg/dL Hemoglobin A1c (0.0-6.0) % Calcium 8.1 L (8.4-10.2) mg/dL 06/21/22 Range/Units 11:24 WBC (3.8-10.6) k/uL RBC (4.30-5.90) m/uL Hgb (13.0-17.5) gm/dL Hct (39.0-53.0) % Sodium (137-145) mmol/L Glucose (74-99) mg/dL POC Glucose (mg/dL) 303 H (70-110) mg/dL Hemoglobin A1c (0.0-6.0) % Calcium (8.4-10.2) mg/dL
--- NOTE | 2022-06-21 14:54 | P.PN ---
Subjective Progress Note Date: 06/21/22 Principal diagnosis: Status post off-pump CABG 4, left internal thoracic artery to diagonal to left internal mammary artery saphenous vein to posterior descending artery left radi al artery from aorta to ramus intermedius postoperative day #3 06/16/2022, the patient is doing well. No chest pain. No shortness of breath. Last bronchus spastic and wheezy compared to yesterday. The patient underwent spirometry yesterday and FEV1 is on that of 73% of predicted. He is currently on bronchodilators. He is also on IV Solu-Medrol. He was started on Levemir insulin 10 units along with that slight scale insulin coverage. No nausea. No chest pain. No significant shortness of breath. No cardiac arrhythmias. He remains on IV heparin. 06/17/2022, no complaints and the patient is doing well. Overnight, he did have some limited chest pain which subsequently subsided and the patient remains on IV heparin. He is less bronchospastic and wheezy. I will also take him off the IV Solu-Medrol and put him on DuoNeb nebulized treatments around the clock. He is using incentive spirometer. He was given Levemir insulin for high blood sugar control due to steroid intake. This can be also discontinued. The patient is ready for surgery to be done on 06/18/2022. This will include coronary artery bypass surgery. Patient was reevaluated today on 06/18/2022, patient is now status post off-pump CABG 4 vessel. He is on mechanical ventilation, he is on assist control rate of 14, volume 500 FiO2 100% and PEEP of 5. ABG showed a pO2 of over 400 with normal acid base status and normal pCO2, and his FiO2 was cut down to 40%. Patient is on nitroglycerin drip at 5 mcg/m, is also on insulin drip at 1 unit per hour, propofol 20 mcg/kg/m. He is not requiring any inotropes or pressors. His cardiac output is 4.1 and cardiac index is 2.1. Chest x-ray showed no evidence of acute process, lines and catheters seem to be all in the proper position. Reevaluated today on 06/19/2022, patient is now postoperative day #1. Patient is sitting in a recliner, he was extubated yesterday at 16:12, patient is doing great, tolerated the extubation well. Apparently he had a brief episode of second degree AV block yesterday, hence IV Cardizem was discontinued and the patient is in sinus rhythm at present. Remains on IV nitro. Pain seems to be fairly well controlled. Chest x-ray showed minimal atelectasis which is expected. is doing poorly with incentive spirometry but improving steadily. He is achieving no more than 750 ML. Urine output is excellent. Lines and catheters were all noted. Including right IJ [place]-Ruperto catheter right radial arterial line mediastinal right and left pleural chest tubes. CBC is relatively normal, electrolytes and renal profile are normal Reevaluated today on 06/20/22, patient is sitting in her recliner, currently in atrial fibrillation but hemodynamically stable, not requiring any pressors or any inotropes. Patient is relatively asymptomatic, blood pressure is stable. His pain is well controlled. And he is on 3 L nasal cannula with O2 saturation of 95%. Achieving 7 50 mL on his incentive spirometer. Has been ambulatory in the hallway. Chest x-ray is reassuring. Labs from today are basically unremarkable hemoglobin is 10 point Reevaluated today on 06/21/22, patient is now on a cardiac floor, doing great, hemodynamically stable, all his tubes and catheters have been removed. Patient is relatively asymptomatic, and most likely he'll be discharged home in the next 24 hours chest x-ray is reassuring minimal atelectasis at the bases and small effusions O Objective - Vital Signs Vital signs: Vital Signs Temp 97.6 F 06/21/22 08:00 Pulse 86 06/21/22 12:00 Resp 18 06/21/22 12:00 BP 111/65 06/21/22 12:00 Pulse Ox 90 L 06/21/22 12:00 FiO2 40 06/18/22 15:28 Intake & Output 06/20/22 06/21/22 06/21/22 18:59 06:59 18:59 Intake Total 521.663 250 360 Output Total 635 250 Balance -113.337 250 110 Weight 89.9 kg Intake: IV 112 Lactated Ringers 1,000 ml 100 @ 20 mls/hr IV .Q24H [facility] Rx#:[id number] PRESSURE BAG 12 Intake, IV Titration 9.663 Amount Insulin Regular 100 unit 9.663 In Sodium Chloride 0.9% 100 ml @ Per Protocol IV .Q0M [facility] Rx#:[id number] Oral 400 250 360 Output: Chest Tube Drainage 100 Chest Tube Mediastinal 50 Right/Left 50 Urine 535 250 Other: Voiding Method Toilet Toilet Urinal Urinal # Bowel Movements 1 1 ABP, PAP, CO, CI - Last Documented Arterial Blood Pressure 113/98 Pulmonary Artery Pressure 25/13 Cardiac Output 6.7 Cardiac Index 3.4 - Exam Physical Exam: Revealed a 67-year-old white male in no distress, on room air. Head: Atraumatic, normocephalic. HEENT:[Neck is supple.] [No neck masses.] [No thyromegaly.] [No JVD.] Chest: Symmetrical chest expansion, slightly diminished breath sounds at the bases Cardiac Exam: [Normal S1 and S2, no S3 gallop, 2/6 systolic murmur Abdomen: [Soft, nontender, no megaly, no rebound, no guarding, normal bowel sounds.] Extremities: [No clubbing, no edema, no cyanosis.] Neurological Exam: Alert and oriented 3 focal neurologic deficit Psychiatric: Normal mood, affect and normal mental status examination Skin: No rashes. - Labs CBC & Chem 7: 06/21/22 05:27 06/21/22 05:27 Labs: Abnormal Lab Results - Last 24 Hours (Table) 06/20/22 06/20/22 06/20/22 Range/Units 04:55 20:49 21:12 WBC (3.8-10.6) k/uL RBC (4.30-5.90) m/uL Hgb (13.0-17.5) gm/dL Hct (39.0-53.0) % Sodium (137-145) mmol/L Glucose (74-99) mg/dL POC Glucose (mg/dL) 344 H 333 H (70-110) mg/dL Hemoglobin A1c 7.1 H (0.0-6.0) % Calcium (8.4-10.2) mg/dL 06/21/22 06/21/22 06/21/22 Range/Units 05:27 05:27 06:04 WBC 10.9 H (3.8-10.6) k/uL RBC 3.08 L (4.30-5.90) m/uL Hgb 9.8 L (13.0-17.5) gm/dL Hct 29.3 L (39.0-53.0) % Sodium 133 L (137-145) mmol/L Glucose 186 H (74-99) mg/dL POC Glucose (mg/dL) 196 H (70-110) mg/dL Hemoglobin A1c (0.0-6.0) % Calcium 8.1 L (8.4-10.2) mg/dL 06/21/22 Range/Units 11:24 WBC (3.8-10.6) k/uL RBC (4.30-5.90) m/uL Hgb (13.0-17.5) gm/dL Hct (39.0-53.0) % Sodium (137-145) mmol/L Glucose (74-99) mg/dL POC Glucose (mg/dL) 303 H (70-110) mg/dL Hemoglobin A1c (0.0-6.0) % Calcium (8.4-10.2) mg/dL Assessment and Plan Assessment: Impression: Status post off-pump CABG 4 vessel, postoperative day #3 Symptomatic multivessel coronary artery disease Acute non-ST segment elevation myocardial infarction Mild ischemic cardiomyopathy and LV dysfunction with ejection fraction of 45-50% Underlying COPD, FEV1 is 70% of the predicted value. Type 2 diabetes. Benign essential hypertension. Dyslipidemia. History of smoking. Recommendation: Continue ambulation Agree with discharge planning today or in the next 24 hours Continue aspirin statins and Plavix and beta blockers Continue incentive spirometry Continue GI and DVT prophylaxis We will continue to follow Time with Patient: Less than 30
--- NOTE | 2022-06-22 12:26 | CDI ---
Documentation Clarification Form Date: From: Mattie Gibbs Admit Date: 06/14/2022 04:51:00 PM Patient Name: Praveen Mejia Visit Number: [id number] Discharge Date: 06/21/2022 03:19:00 PM ATTENTION: The Clinical Documentation Specialists (CDI) and [facility] Coding Staff appreciate your assistance in clarifying documentation. Please respond to the clarification below the line at the bottom and electronically sign. The CDI & [facility] Coding staff will review the response and follow-up if needed. Please note: Queries are made part of the Legal Health Record. If you have any questions, please contact the author of this message via ITS. Dr. Noa Kaiser, Your patient has the documented diagnosis of mild systolic heart failure per your consult. Additional information regarding the [type, acuity] of CHF is requested. History/Risk Factors: NSTEMI, CAID W USA & calcified coronary lesion, COPD, T2DM w hyperglycemia, PVD, HLD, ischemic cardiomyopathy, HTN Clinical Indicators: Mild systolic heart failure with impairment of the LV ejection fraction, estimated to be around 45-50% and mild elevation of the left ventricular end-diastolic pressures. 06/20 VS/Pulse OX: P 105, R 30, BP 97/57, O2 90 06/20 Chest X Ray: Postoperative change with persistent bilateral infiltrate and pleural effusion. Treatment: IV Lasix 20 mg on 06/20, V Lasix 20 mg on 06/21 In your professional opinion, can you please clarify the [acuity and type] of CHF if known? [ ] Acute Systolic Heart Failure (reduced EF) [ ] Chronic Systolic Heart Failure (reduced EF) [ x] Acute on Chronic Systolic Heart Failure (reduced EF) [ ] Other, please specify [ ] Unable to determine MTDD
== END 2022-06-21 15:19 | disposition home health service (06) | DRG 233 ==
LOC: EC 14:54 → 3SCARD 16:51 → 2SICU 06-18 07:22 → 3SCARD 06-20 22:16
PROVIDERS: ADMIT Thoracic Surgery (Cardiothoracic Vascular Surgery); ATTEND Thoracic Surgery (Cardiothoracic Vascular Surgery)
PROC: B2111ZZ Fluoroscopy of Multiple Coronary Arteries using Low Osmolar Contrast (ICD-10-PCS; 2022-06-15)
PROC: 4A023N7 Measurement of Cardiac Sampling and Pressure, Left Heart, Percutaneous Approach (ICD-10-PCS; 2022-06-15)
PROC: 02100AW Bypass Coronary Artery, One Artery from Aorta with Autologous Arterial Tissue, Open Approach (ICD-10-PCS; principal; 2022-06-18 08:00)
PROC: 06BP4ZZ Excision of Right Saphenous Vein, Percutaneous Endoscopic Approach (ICD-10-PCS; principal; 2022-06-18 08:00)
PROC: 021009W Bypass Coronary Artery, One Artery from Aorta with Autologous Venous Tissue, Open Approach (ICD-10-PCS; principal; 2022-06-18 08:00)
PROC: 02L70CK Occlusion of Left Atrial Appendage with Extraluminal Device, Open Approach (ICD-10-PCS; principal; 2022-06-18 08:00)
PROC: 06BQ4ZZ Excision of Left Saphenous Vein, Percutaneous Endoscopic Approach (ICD-10-PCS; principal; 2022-06-18 08:00)
PROC: 03BC4ZZ Excision of Left Radial Artery, Percutaneous Endoscopic Approach (ICD-10-PCS; principal; 2022-06-18 08:00)
PROC: 02110Z9 Bypass Coronary Artery, Two Arteries from Left Internal Mammary, Open Approach (ICD-10-PCS; principal; 2022-06-18 08:00)
PROC: B24BZZ4 Ultrasonography of Heart with Aorta, Transesophageal (ICD-10-PCS; principal; 2022-06-18 08:00)
DX: I21.4 Non-ST elevation (NSTEMI) myocardial infarction (principal); I50.23 Acute on chronic systolic (congestive) heart failure; I25.110 Atherosclerotic heart disease of native coronary artery with unstable angina pectoris; E11.51 Type 2 diabetes mellitus with diabetic peripheral angiopathy without gangrene; I44.1 Atrioventricular block, second degree; E11.65 Type 2 diabetes mellitus with hyperglycemia; J44.9 Chronic obstructive pulmonary disease, unspecified; I48.91 Unspecified atrial fibrillation; J98.01 Acute bronchospasm; I25.84 Coronary atherosclerosis due to calcified coronary lesion; I44.7 Left bundle-branch block, unspecified; I10 Essential (primary) hypertension; I25.5 Ischemic cardiomyopathy; E83.42 Hypomagnesemia; E78.5 Hyperlipidemia, unspecified; E78.00 Pure hypercholesterolemia, unspecified; I07.1 Rheumatic tricuspid insufficiency; T38.0X5A Adverse effect of glucocorticoids and synthetic analogues, initial encounter; F17.210 Nicotine dependence, cigarettes, uncomplicated; Z71.6 Tobacco abuse counseling; Z79.82 Long term (current) use of aspirin; Z79.84 Long term (current) use of oral hypoglycemic drugs; Z79.899 Other long term (current) drug therapy; Z95.5 Presence of coronary angioplasty implant and graft; Z95.820 Peripheral vascular angioplasty status with implants and grafts; Z71.3 Dietary counseling and surveillance; Z82.49 Family history of ischemic heart disease and other diseases of the circulatory system
CPT/HCPCS: 36415; 71045; 71046; 71250; 78452; 80048; 80053; 80061; 80074; 81003; 82272; 82330; 82805; 83036; 83735; 84100; 84132; 84443; 84484; 85025; 85027; 85520; 85610; 85730; 86850; 86891; 86900; 86901; 86920; 87070; 93005; 93017; 93306; 93458; 93880; 93970; 94002; 94150; 94640; 94760; 96365; 99285

== ENCOUNTER → 2022-06-14 | Outpatient (CLI) | payer MEDICARE, OTHER ==
--- NOTE | 2022-06-14 13:16 | NM ---
EXAMINATION TYPE: NM stress cardiolite complete DATE OF EXAM: 06/14/2022 COMPARISON: 09/28/2019 HISTORY: Chest pain TECHNIQUE: After the intravenous administration of 9.75 mCi Tc 99m Sestamibi - Rest images obtained 45 minutes post injection. The patient exercised using a CORY protocol and 1 minute prior to peak exercise was injected with 26.7 mCi Tc 99m Sestamibi - Stress images obtained 25 minutes post injecti on. FINDINGS: Targeted heart rate was achieved during performance of the study. Review of stress and rest SPECT theodore ges demonstrates large area of stress-induced reversible ischemia involving the anterior wall, apex a nd inferior wall. There is reversible ischemia involving the septum. Gated analysis shows normal wall motion with an e stimated left ventricular ejection fraction of 45 %. IMPRESSION: 1. Large areas of stress-induced reversible ischemia involving the apical inferior, apical septal and apical lateral portions of the myocardium. Report called to referring clinician. [id number] at 06/14/2022
--- NOTE | 2022-06-15 09:11 | CA ---
Exercise Stress Test Report Name: Praveen Mejia Exam Date: 06/14/2022 10:42 Exam Location: [facility] Stress Ht (in): 68 Wt (lb): 190 BSA: 2.00 Ordering Phys: Masoud Matias DO Referring Phys: Masoud Matias DO Technologist: CHRISS, Age: 67 Gender: M : 1955 Procedure CPT: Indications: I25.10 Athscl heart disease ICD-10 Codes: Patient History: Chest Pain Medications: Meds past 24 hrs: Pretest Chest Pain: STRESS TEST Prasanth Protocol Exercise Duration (min:sec): 09:[address] Depressions (mm): Angina Score: Story Score: Resting HR (bpm): 75 Peak HR (bpm): 138 Resting BP (mmHg): 159 / 79 Peak BP (mmHg): 175 / 67 MPHR: 155 Target HR: 132 % MPHR: 89 METS: 10.3 Total Dose: Peak Dose: Atropine: Double Product: 68533 BP Response: Stress Termination: Reached target heart rate Stress Symptoms: Dyspnea Stress Summary: ECG ANALYSIS Resting ECG: Normal sinus rhythm normal axis normal intervals Stress ECG: Patient developed left bundle branch block with exercise. Walked for 9 minutes on Prasanth protocol without chest pain. He developed shortness of breath EKG changes for inconclusive due to left bundle branch block CONCLUSIONS Good exercise tolerance Inconclusive EKG part of the stress test due to rate dependent bundle branch block Cardiolite portion of the stress test will be reported separately Dr. Cristiano Patten MD (Electronically Signed) Final Date: 15 June 2022 09:10
== END | disposition home or self-care (01) ==
LOC: RADNMMAIN 08:28
PROVIDERS: ATTEND Family Medicine
DX: I25.10 Atherosclerotic heart disease of native coronary artery without angina pectoris (principal)
CPT/HCPCS: 93017; 78452; A9500

== ENCOUNTER → 2022-11-15 | Outpatient (CLI) | payer MEDICARE, OTHER ==
[2022-11-15 10:50] LABS: ALT 39 U/L (10-49); AST 30 U/L (14-35); African American GFR (CKD) 105.3 (60.0-200.0); Albumin 4.6 g/dL (3.8-4.9); Albumin/Globulin Ratio 1.89 (1.60-3.17); Alkaline Phosphatase 104 U/L (41-126); BUN/Creat Ratio 18.08 Ratio (12.00-20.00); Blood Urea Nitrogen 15.6 mg/dL (9.0-27.0); Calcium 9.3 mg/dL (8.7-10.3); Carbon Dioxide 24.5 mmol/L (20.0-27.5); Chloride 104 mmol/L (96-109); Chol/HDL Ratio 3.64 Ratio; Globulin 2.4 g/dL (1.6-3.3); Glucose 158 mg/dL (70-110); Non-African American GFR(CKD) 90.9 (60.0-200.0); Potassium 5.1 mmol/L (3.5-5.5); Sodium 138 mmol/L (135-145)
== END | disposition home or self-care (01) ==
LOC: LABWHC1 08:12
PROVIDERS: ATTEND Internal Medicine Interventional Cardiology
DX: E78.2 Mixed hyperlipidemia (principal)
CPT/HCPCS: 36415; 80053; 80061

== ENCOUNTER → 2023-04-26 | Outpatient (CLI) | payer MEDICARE, OTHER ==
[2023-04-26 16:16] LABS: ALT 37 U/L (10-49); AST 27 U/L (14-35); Carbon Dioxide 23.1 mmol/L (21.6-31.8); Chloride 102 mmol/L (96-109); Chol/HDL Ratio 3.62 Ratio; LDL Cholesterol,Calculated 52.1 mg/dL (0.0-131.0); Potassium 5.4 mmol/L (3.5-5.5); Sodium 138 mmol/L (135-145)
== END | disposition home or self-care (01) ==
LOC: LABWHC1 08:10
PROVIDERS: ATTEND Family Medicine
DX: Z12.5 Encounter for screening for malignant neoplasm of prostate (principal); E78.2 Mixed hyperlipidemia; E11.9 Type 2 diabetes mellitus without complications
CPT/HCPCS: 36415; 80051; 80061; 82565; 83036; 84153; 84450; 84460; 84520

== ENCOUNTER → 2023-10-31 | Outpatient (CLI) | payer MEDICARE, OTHER ==
[2023-10-31 09:44] LABS: NT-Pro-B-Type Natriuretic Pept 83 pg/mL
[2023-10-31 15:22] LABS: ALT 23 U/L (10-49); AST 23 U/L (14-35); Albumin 4.4 g/dL (3.8-4.9); Alkaline Phosphatase 95 U/L (41-126); BUN/Creat Ratio 19.25 Ratio (12.00-20.00); Blood Urea Nitrogen 15.4 mg/dL (9.0-27.0); Calcium 9.6 mg/dL (8.7-10.3); Carbon Dioxide 20.5 mmol/L (21.6-31.8); Chloride 106 mmol/L (96-109); Chol/HDL Ratio 3.77 Ratio; Globulin 2.2 g/dL (1.6-3.3); Glucose 164 mg/dL (70-110); LDL Cholesterol,Calculated 65.2 mg/dL (0.0-131.0); Potassium 4.5 mmol/L (3.5-5.5); Sodium 142 mmol/L (135-145); Total Bilirubin 0.4 mg/dL (0.3-1.2); Total Protein 6.6 g/dL (6.2-8.2)
== END | disposition home or self-care (01) ==
LOC: LABWHC1 08:15
PROVIDERS: ATTEND Internal Medicine Interventional Cardiology
DX: I25.5 Ischemic cardiomyopathy (principal); I50.22 Chronic systolic (congestive) heart failure; E78.2 Mixed hyperlipidemia
CPT/HCPCS: 36415; 80053; 80061; 83880

== ENCOUNTER 2024-01-28 09:28 | Emergency (ER) | payer MEDICARE, OTHER ==
[2024-01-28 09:59] VITALS: BP 170/90; PULSE 93; RESP 18; TEMP 98
--- NOTE | 2024-01-28 10:03 | ED ---
Upper Extremity HPI - General Chief Complaint: Extremity Injury, Upper Stated Complaint: abcess on elbow Time Seen by Provider: 01/28/24 09:55 Source: patient, RN notes reviewed Mode of arrival: ambulatory Limitations: no limitations - History of Present Illness Initial Comments: 68-year-old male presents emergency department chief complaint of left elbow pain and swelling over the last 10 days. He states that the swelling has subsided, but it is still persistent and is causing some slight discomfort with mobility of his elbow. Patient states that he had a similar experience to this relatively 15 years ago where he was diagnosed with bursitis and the area was drained. Denies any fevers, fatigue, nausea, vomiting. States that there is an area of redness that was spreading proximally and distally from the left elbow, but redness has been consistent over the past week. Denies any obvious trauma to the area, but states that he is very active on his day-to-day life, denies any overlying skin infection over the past week. Been taking Tylenol and Naprosyn at home with minimal relief. - Related Data Home Medications Medication Instructions Recorded Confirmed Aspirin EC [Ecotrin Low Dose] 81 mg PO DAILY 06/14/22 06/14/22 Atorvastatin Calcium [Lipitor] 80 mg PO HS 06/14/22 06/14/22 Ezetimibe [Zetia] 10 mg PO DAILY 06/14/22 06/14/22 metFORMIN HCL 1,000 mg PO BID 06/14/22 06/14/22 Previous Rx's Medication Instructions Recorded Acetaminophen Tab [Tylenol] 650 mg PO Q4HR PRN tab 06/21/22 Amiodarone [Cordarone] 400 mg PO BID #45 tab 06/21/22 Clopidogrel [Plavix] 75 mg PO DAILY #30 tab 06/21/22 Metoprolol Tartrate [Lopressor] 50 mg PO BID #60 tab 06/21/22 Pantoprazole [Protonix] 40 mg PO AC-BRKFST #30 tab 06/21/22 Sennosides-Docusate Sodium 2 each PO HS PRN tab 06/21/22 [Senokot-S] amLODIPine [Norvasc] 2.5 mg PO DAILY@1200 #30 tab 06/21/22 glipiZIDE [Glucotrol] 2.5 mg PO AC-BID #60 tablet 06/21/22 Albuterol Inhaler [Ventolin Hfa 2 puff INHALATION RT-TID #8 gm 06/26/22 Inhaler] Budesonide-Formot 160-4.5 Mcg 2 puff INHALATION BID #1 each 06/26/22 [Symbicort 160-4.5 Mcg Inhaler] clindamycin HCL 300 mg PO QID #40 cap 01/28/24 Allergies Allergy/AdvReac Type Severity Reaction Status Date / Time No Known Allergies Allergy Verified 01/28/24 09:34 Review of Systems ROS Statement: Those systems with pertinent positive or pertinent negative responses have been documented in the HPI. ROS Other: All systems not noted in ROS Statement are negative. Past Medical History Past Medical History: Coronary Artery Disease (CAD), Diabetes Mellitus, Hyperlipidemia, Hypertension, Myocardial Infarction (VA) Additional Past Medical History / Comment(s): PAD with previous stenting to the left lower extremity History of Any Multi-Drug Resistant Organisms: None Reported Past Surgical History: Appendectomy, Heart Catheterization With Stent, Orthopedic Surgery Additional Past Surgical History / Comment(s): Right shoulder surgery; cataract surgery Additional Past Anesthesia/Blood Transfusion Reaction / Comment(s): No history of blood transfusion; no anesthesia difficulties Date of Last Stent Placement:: 2018 Past Psychological History: No Psychological Hx Reported Smoking Status: Current every day smoker Past Alcohol Use History: Occasional Past Drug Use History: None Reported - Past Family History Father Family Medical History: Coronary Artery Disease (CAD) Additional Family Medical History / Comment(s): Father with 3 vessel CABG at 47 years old Mother Family Medical History: Coronary Artery Disease (CAD) Brother(s) Family Medical History: Coronary Artery Disease (CAD) General Exam Limitations: no limitations General appearance: alert, in no apparent distress Head exam: Present: atraumatic, normocephalic, normal inspection Eye exam: Present: normal appearance, PERRL, EOMI. Absent: scleral icterus, conjunctival injection, periorbital swelling ENT exam: Present: normal exam, mucous membranes moist Neck exam: Present: normal inspection. Absent: tenderness, meningismus, lymphadenopathy Respiratory exam: Present: normal lung sounds bilaterally. Absent: respiratory distress, wheezes, rales, rhonchi, stridor Cardiovascular Exam: Present: regular rate, normal rhythm, normal heart sounds. Absent: systolic murmur, diastolic murmur, rubs, gallop, clicks GI/Abdominal exam: Present: soft, normal bowel sounds. Absent: distended, tenderness, guarding, rebound, rigid Left Shoulder Exam: Present: normal inspection Upper Arm exam: Present: normal inspection Elbow exam: Present: full ROM (ROM limited due to swelling of the olecranon bursa), tenderness, swelling, erythema (slight erythema around olecranon bursa spreading proximally and distally). Absent: abrasion, laceration, ecchymosis, deformity, crepitus, dislocation Forearm Wrist exam: Present: normal inspection, full ROM. Absent: tenderness, swelling Hand Wrist exam: Present: normal inspection, full ROM, swelling. Absent: tenderness Neuro motor exam: Present: wrist extension intact, thumb IP flexion intact, thumb adduction intact Vascular: Present: normal capillary refill. Absent: vascular compromise Back exam: Present: normal inspection Neurological exam: Present: alert, oriented X3, CN II-XII intact Psychiatric exam: Present: normal affect, normal mood Skin exam: Present: warm, dry, intact, normal color. Absent: rash Course Vital Signs 01/28/24 01/28/24 09:32 10:53 Temperature 98 F Pulse Rate 93 Respiratory 18 18 Rate Blood Pressure 170/90 O2 Sat by Pulse 96 Oximetry Medical Decision Making - Medical Decision Making Was pt. sent in by a medical professional or institution ([facility], [employer], urgent care, hospital, or prison...) When possible be specific @ -No Did you speak to anyone other than the patient for history (EMS, parent, family, police, friend...)? What history was obtained from this source @ -No Did you review nursing and triage notes (agree or disagree)? Why? @ -I reviewed and agree with nursing and triage notes Were old charts reviewed (outside hosp., previous admission, EMS record, old EKG, old radiological studies, urgent care reports/EKG's, prison records)? Report findings @ -No old charts were reviewed Differential Diagnosis (chest pain, altered mental status, abdominal pain women, abdominal pain men, vaginal bleeding, weakness, fever, dyspnea, syncope, headache, dizziness, GI bleed, back pain, seizure, CVA, palpatations, mental health, musculoskeletal)? @ -Differential Musculoskeletal Muscular strain, contusion, ligament sprain, fracture, arthritis, septic arthritis, bursitis, cellulitis, muscle spasm, nerve compression, DVT, arterial occlusion, herpes zoster, electrolyte abnormality, tumor.... This is not meant to be in all inclusive list EKG interpreted by me (3pts min.). @ -None X-rays interpreted by me (1pt min.). @ -complete x-ray of left elbow reveals bony abnormalities, overlying soft tissue swelling most likely clinically correlates with olecranon bursitis CT interpreted by me (1pt min.). @ -None done U/S interpreted by me (1pt. min.). @ -None done What testing was considered but not performed or refused? (CT, X-rays, U/S, labs)? Why? @ -None What meds were considered but not given or refused? Why? @ -None Did you discuss the management of the patient with other professionals (john snow i.e. , PA, [employer], lab, RT, psych nurse, social media marketing specialist, family lawyer, teacher, tank officer, caseworker protective services)? Give summary @ -No Was smoking cessation discussed for >3mins.? @ -No Was critical care preformed (if so, how long)? @ -No Were there social determinants of health that impacted care today? How? (Homelessness, low income, unemployed, alcoholism, drug addiction, transportation, low edu. Level, literacy, decrease access to med. care, prison, rehab)? @ -No Was there de-escalation of care discussed even if they declined (Discuss DNR or withdrawal of care, Hospice)? DNR status @ -No What co-morbidities impacted this encounter? (DM, HTN, Smoking, COPD, CAD, Cancer, CVA, ARF, Chemo, Hep., AIDS, mental health diagnosis, sleep apnea, morbid obesity)? @ -None Was patient admitted / discharged? Hospital course, mention meds given and route, prescriptions, significant lab abnormalities, going to OR and other pertinent info. @ -discharged. 68-year-old male with left elbow pain. On physical exam left elbow was found to be edematous with slight erythema around the olecranon bursa, with slight limitation and active range of motion due to swelling. The area was slightly warm to the touch, no paresthesias noted on physical exam. Basic labs were deferred. Patient was given IM shot of Toradol for pain relief in the emergency department. X-ray of left elbow reveals no evidence of joint involvement, overlying soft tissue swelling. Due to exam of the area of erythema around the olecranon, will be empirically treated for olecranon septic bursitis with clindamycin. Patient instructed to follow-up with orthopedic referral provided on discharge instructions for further evaluation and potential drainage of bursa. Patient left forearm and hand also revealed mild edema, which are most likely secondary to venous insufficiency due to patient wrapping the area tightly with an Rubens wrap at home. Little clinical suspicion for DVT of upper extremity. I discussed this case with my attending, Dr. Freedman, agreeable with plan and for discharge Undiagnosed new problem with uncertain prognosis? @ -No Drug Therapy requiring intensive monitoring for toxicity (Heparin, Nitro, Insulin, Cardizem)? @ -No Were any procedures done? @ -No Diagnosis/symptom? @ -Elbow pain, septic olecranon bursitis Acute, or Chronic, or Acute on Chronic? @ -Acute Uncomplicated (without systemic symptoms) or Complicated (systemic symptoms)? @ -Complicated Side effects of treatment? @ -No Exacerbation, Progression, or Severe Exacerbation? @ -No Poses a threat to life or bodily function? How? (Chest pain, USA, VA, pneumonia, PE, COPD, DKA, ARF, appy, cholecystitis, CVA, Diverticulitis, Homicidal, Suicidal, threat to staff... and all critical care pts) @ -unlikely Disposition Clinical Impression: Septic bursitis of elbow Narrative: Please return to the Emergency Department if symptoms worsen or any other concerns. Complete full antibiotics as prescription states. Follow-up with provided orthopedic referral for further evaluation. Disposition: HOME SELF-CARE Condition: Good Instructions (If sedation given, give patient instructions): Elbow Bursitis (ED) Prescriptions: clindamycin HCL 300 mg PO QID #40 cap Is patient prescribed a controlled substance at d/c from ED?: No Referrals: Masoud Matias DO [Primary Care Provider] - 1-2 days Woodrow Osei DO [Doctor of Osteopathic Medicine] - 1-2 days Time of Disposition: 10:41
[2024-01-28] MEDS: KETOROLAC 15 MG/ML 1 ML VIAL IM STA (10:18)
--- NOTE | 2024-01-28 10:28 | XR ---
EXAMINATION TYPE: XR elbow complete LT DATE OF EXAM: 01/28/2024 10:15 AM CLINICAL INDICATION:Male, 68 years old with history of swelling; [facility] COMPARISON: TECHNIQUE: The left elbow was examined in AP, lateral, and oblique projections. FINDINGS: Osseous mineralization appears appropriate. There is no fracture, dislocation, or osseous destructive process seen. No periostitis. Mild changes. Mild enthesopathic changes of the distal triceps tendon with some striated calcification seen. No sizable joint effusion is suggested. There is soft tissue prominence suggesting swelling over the base of the olecranon process in the expected location of the olecranon bursa, somewhat ovoid in conf iguration. No radiopaque foreign body is seen. IMPRESSION: 1. Prominent soft tissues over the proximal ulna may represent olecranon bursitis or hematoma, with superimposed infection not excluded. 2. No acute bony abnormality.
== END 2024-01-28 10:53 | disposition home or self-care (01) ==
LOC: EC 09:28
DX: S50.02XA Contusion of left elbow, initial encounter (principal); F17.200 Nicotine dependence, unspecified, uncomplicated; X58.XXXA Exposure to other specified factors, initial encounter
CPT/HCPCS: 73080; 99283; 96372; J1885

== ENCOUNTER → 2024-02-27 | Outpatient (CLI) | payer MEDICARE, OTHER ==
--- NOTE | 2024-03-04 17:52 | CTL ---
EXAMINATION TYPE: CT Low Dose Lung DATE OF EXAM: 02/27/2024 1:51 PM CLINICAL INDICATION:Male, 68 years old with history of R91.1 solitary pulmonary nodule; personal hx o f nicotine dependence current smoker 1ppd X 30 years , history of tobacco use. COMPARISON: None. TECHNIQUE: Multiple axial non-contrast scans were obtained from approximately the lung apices through the upper abdomen. Coronal and sagittal reformatted images were obtained. Low dose technique was uti lized. CT DLP: 85.76 mGycm, Automated exposure control for dose reduction was used. CT Contrast: Contrast used: None Oral contrast used: None FINDINGS: ======== Lack of intravenous contrast and low dose technique limits the evaluation of the vascular and soft ti ssue structures. LUNGS: No evidence of pulmonary fibrosis. No evidence of focal consolidation, pneumothorax or pleural effusion. Nodules: RUL: None. RML: None. RLL: None. NEGAR: None. LLL: 6 mm pleural-based nodule left lower lobe, series 8, image 43. Stable. AIRWAY: Patent and unremarkable. HEART: Size within normal limits. Extensive calcific coronary artery disease MEDIASTINUM: No gross evidence of adenopathy. VASCULATURE: No aortic aneurysm. MUSCULOSKELETAL: No acute osseous abnormalities SOFT TISSUES/LYMPH NODES: Unremarkable. LOWER NECK: No significant findings. UPPER ABDOMEN: No significant findings. IMPRESSION: 1. No clinically significant pulmonary nodules. CT LUNG RAD AND CT CHEST RECOMMENDATION: 2 S Modifier (other clinically significant findings): Coronary artery disease Recommend smoking cessation (if current smoker), or continuation of smoking cessation (if prior smoke r). Annual screening for lung cancer with low-dose computed tomography is recommended in adults ages 55 to 77 years who have a 30 pack-year smoking history and currently smoke or have quit within the pa st 15 years. Screening should be discontinued once a person has not smoked for 15 years or develops a health problem that substantially limits life expectancy or the ability or willingness to have curat mark lung surgery. Lung rads 2021 [email or web address]
== END | disposition home or self-care (01) ==
LOC: RADCTMAIN 12:59
PROVIDERS: ATTEND Family Medicine
DX: Z12.2 Encounter for screening for malignant neoplasm of respiratory organs (principal); F17.210 Nicotine dependence, cigarettes, uncomplicated; R91.1 Solitary pulmonary nodule
CPT/HCPCS: 71271

== ENCOUNTER → 2024-05-12 | Outpatient (CLI) | payer MEDICARE, OTHER ==
[2024-05-12 18:08] LABS: BUN/Creat Ratio 17.56 Ratio (12.00-20.00); Blood Urea Nitrogen 15.8 mg/dL (9.0-27.0); Chloride 104 mmol/L (96-109); Chol/HDL Ratio 3.37 Ratio; Glucose 171 mg/dL (70-110); LDL Cholesterol,Calculated 59.3 mg/dL (0.0-131.0); Potassium 5.2 mmol/L (3.5-5.5); Sodium 140 mmol/L (135-145)
[2024-05-12 18:09] LABS: ALT 21 U/L (10-49); AST 19 U/L (14-35); Albumin 4.4 g/dL (3.8-4.9); Alkaline Phosphatase 93 U/L (41-126); Calcium 9.5 mg/dL (8.7-10.3); Carbon Dioxide 20.8 mmol/L (21.6-31.8); Total Bilirubin 0.5 mg/dL (0.3-1.2); Total Protein 6.4 g/dL (6.2-8.2)
== END | disposition home or self-care (01) ==
LOC: LABWHC1 07:59
PROVIDERS: ATTEND Internal Medicine Interventional Cardiology
DX: E78.2 Mixed hyperlipidemia (principal)
CPT/HCPCS: 36415; 80053; 80061

== ENCOUNTER → 2024-11-13 | Outpatient (CLI) | payer MEDICARE, OTHER ==
[2024-11-13 15:25] LABS: NT-Pro-B-Type Natriuretic Pept 72 pg/mL (0-125)
[2024-11-13 15:35] LABS: ALT 30 U/L (10-49); AST 26 U/L (14-35); Albumin 4.5 g/dL (3.8-4.9); Albumin/Globulin Ratio 1.96 Ratio (1.60-3.17); Alkaline Phosphatase 87 U/L (41-126); BUN/Creat Ratio 19.75 Ratio (12.00-20.00); Blood Urea Nitrogen 15.8 mg/dL (9.0-27.0); Calcium 9.4 mg/dL (8.7-10.3); Carbon Dioxide 24.8 mmol/L (21.6-31.8); Chloride 105 mmol/L (96-109); Globulin 2.3 g/dL (1.6-3.3); Glucose 152 mg/dL (70-110); LDL Cholesterol,Calculated 67.6 mg/dL (0.0-131.0); Sodium 142 mmol/L (135-145); Total Bilirubin 0.7 mg/dL (0.3-1.2); Total Protein 6.8 g/dL (6.2-8.2)
== END | disposition home or self-care (01) ==
LOC: LABWHC1 07:47
PROVIDERS: ATTEND Internal Medicine Interventional Cardiology
DX: I25.5 Ischemic cardiomyopathy (principal); E78.2 Mixed hyperlipidemia
CPT/HCPCS: 36415; 80053; 80061; 83880

== ENCOUNTER → 2025-05-31 | Outpatient (CLI) | payer MEDICARE, OTHER ==
[2025-05-31 10:21] LABS: ALT 32 U/L (10-49); AST 24 U/L (14-35); Albumin 4.5 g/dL (3.8-4.9); Albumin/Globulin Ratio 2.50 Ratio (1.60-3.17); Alkaline Phosphatase 79 U/L (41-126); Anion Gap 10.90 mmol/L (4.00-12.00); BUN/Creat Ratio 17.33 Ratio (12.00-20.00); Blood Urea Nitrogen 15.6 mg/dL (9.0-27.0); Calcium 9.2 mg/dL (8.7-10.3); Carbon Dioxide 23.1 mmol/L (21.6-31.8); Chloride 104 mmol/L (96-109); Cholesterol 121.00 mg/dL (0.00-200.00); Globulin 1.8 g/dL (1.6-3.3); Glucose 148 mg/dL (70-110); HDL Cholesterol 36.20 mg/dL (40.00-60.00); LDL Cholesterol,Calculated 53.0 mg/dL (0.0-131.0); Potassium 4.5 mmol/L (3.5-5.5); Sodium 138 mmol/L (135-145); Total Protein 6.3 g/dL (6.2-8.2); Triglycerides 159.00 mg/dL (0.00-149.00); VLDL Calculation 31.80 mg/dL (5.00-40.00)
== END | disposition home or self-care (01) ==
LOC: LABWHC1 06:58
PROVIDERS: ATTEND Internal Medicine Interventional Cardiology
DX: E78.2 Mixed hyperlipidemia (principal)
CPT/HCPCS: 36415; 80053; 80061